=== PATIENT | male | born 1975 | race Native Hawaiian/Other Pacific Islander ===

== ENCOUNTER 2025-03-14 10:44 | Inpatient (IN) | payer MEDICAID, SELFPAY ==
[2025-03-14] VITALS (11 sets, daily range): BP systolic 158–195; BP diastolic 83–116; PULSE 76–101; RESP 15–99; TEMP 36.5–37.3; O2SAT 97–100; BMI 34.3
--- NOTE | 2025-03-14 11:21 | XR_ITS ---
Examination: AP lateral chest 2 views Technique: Portable AP lateral chest 2 views Exam date and time: March 14, 2025 1129 hrs. Indications: Coughing difficulty breathing one week. Findings: Normal heart size Lungs are clear. The osseous structures are intact Impression: No active disease
--- NOTE | 2025-03-14 11:21 | PD.EDRME ---
Rapid Medical Screening Exam RME Arrival date/time: 03/14/25 10:44 49-year-old male presents to the emergency department complaints of cough, congestion and sore throat Chief Complaint: Flu Like Symptoms Time Seen by Provider: 03/14/25 11:09 Vital signs: Vital Signs Temperature 99.1 F 03/14/25 11:01 Pulse Rate 76 03/14/25 11:01 Respiratory Rate 18 03/14/25 11:01 Blood Pressure 174/84 H 03/14/25 11:01 Pulse Oximetry (%) 98 03/14/25 11:01 Oxygen Delivery Method Room Air 03/14/25 11:01
[2025-03-14 11:39] LABS: Strep A Rapid Negative (Negative)
[2025-03-14 12:03] LABS: Collection Type, Urine Clean Catch; Squamous Epithelial Cell,Urine 0 /hpf (0-5)
[2025-03-14 12:15] LABS: Bilirubin,Urine Negative (Negative); Blood,Urine 2+ (Negative); Clarity,Urine Clear (Clear/Hazy); Color,Urine Lt-Yellow (Lt Yel-Yel); Glucose, Urine 3+ (Negative); Ketones,Urine Negative (Negative); Leukocyte Esterase,Urine Negative (Negative); Nitrite,Urine Negative (Negative); PH,Urine 6.5 (5.0-7.0); Protein,Urine 3+ (Neg - Trace); RBC,Urine 3 /hpf (0-3); Specific Gravity,Urine 1.014 (1.001-1.035); Urobilinogen,Urine Negative mg/dL (0.0-1.0); WBC,Urine 4 /hpf (0-5)
[2025-03-14 12:19] LABS: Basophils % (Auto) 1 % (0-2.5); Eosinophils # (Auto) 0.4 Thou/mm3 (0.0-0.5); Eosinophils % (Auto) 5 % (0-10); Hematocrit 24.1 % (41.0-53.0); Immature Granulocytes % (Auto) 0 % (0-0); Immature Granulocytes Auto 0.03 Thou/mm3 (0.00-0.00); Lymphocytes # (Auto) 1.2 Thou/mm3 (1.0-4.8); Lymphocytes % (Auto) 15 % (10-50); Mean Corpuscular HGB Conc 34.4 g/dl (31.0-37.0); Mean Corpuscular Hemoglobin 27.5 pg (25.0-35.0); Mean Corpuscular Volume 80 fL (80-100); Monocytes # (Auto) 0.8 Thou/mm3 (0.0-0.8); Monocytes % (Auto) 10 % (0-12); Neutrophils # (Auto) 5.5 Thou/mm3 (1.8-7.7); Neutrophils % (Auto) 69 % (37-80); Nucleated Red Blood Cell % 0 /100 WBC (0); Platelet Count 181 Thou/mm3 (140-440); RDW Standard Deviation 37.8 fL (35.1-43.9); Red Blood Count 3.02 Miln/mm3 (4.50-5.90); White Blood Count 7.9 Thou/mm3 (3.8-10.6)
[2025-03-14 12:20] LABS: Hemoglobin 8.3 g/dL (13.5-16.0)
[2025-03-14 12:42] LABS: Alanine Aminotransferase 13 U/L (10-49); Albumin, Serum 3.7 gm/dL (3.5-5.0); Albumin/Globulin Ratio 1.4 (1.2-2.2); Alkaline Phosphatase 114 U/L (46-116); Anion Gap 11 (7-16); Aspartate Amino Transferase < 10 U/L (0-34); BUN/Creatinine Ratio 6 Ratio (12-20); Bilirubin,Total 0.2 mg/dL (0.3-1.2); Blood Urea Nitrogen 95 mg/dL (9-23); Calcium 8.3 mg/dL (8.3-10.6); Calcium (Corrected) 8.5 mg/dL (8.5-10.1); Carbon Dioxide 18.6 mMol/L (20.0-31.0); Chloride 109 mMol/L (98-107); Estimated Creatinine Clearance 5.4 mL/min (>60); Globulin 2.7 gm/dL (2.3-3.5); Glucose 123 mg/dL (74-106); Osmolality,Calculated 307 (275-295); Potassium 5.5 mMol/L (3.4-5.1); Sodium 139 mMol/L (136-145); Total Protein 6.4 gm/dL (5.7-8.2); eGFR 3 See Note
[2025-03-14 12:48] LABS: Creatinine (Component) 16.7 mg/dL (0.6-1.3)
--- NOTE | 2025-03-14 13:45 | PD.EDURI ---
Upper Respiratory Inf. RME/HPI General Chief Complaint: Flu Like Symptoms Stated Complaint: COUGH,SOB, MCKENZIE x 1 WEEK Time Seen by Provider: 03/14/25 11:09 Arrival date/time: 03/14/25 10:44 RME / HPI RME / HPI Narrative: 49-year-old male presents to the emergency department complaints of cough, congestion and sore throat. Has been ongoing for the last 7 days. Denies any fever denies any other complaints. Patient being followed by Dr. Gipson. Patient being seen by graduate studies dean and was advised to have dialysis for last 1.5 years. Patient still denying or refusing hemodialysis. Patient denies any fever. Patient told me that he is still making urine. Related Data Home Medications ?Medication ?Instructions ?Recorded ?Confirmed amlodipine 5 mg tablet 5 mg PO QDAY 09/01/20 09/01/20 insulin glargine 100 unit/mL (3 35 unit subcut QDAY 09/01/20 09/01/20 mL) subcutaneous pen (Basaglar KwikPen U-100 Insulin) sitagliptin phosphate 50 1 tab PO BID 09/01/20 09/01/20 mg-metformin 1,000 mg tablet (Janumet) Previous Rx's ?Medication ?Instructions ?Recorded albuterol sulfate 90 mcg/actuation 1 inh inhalation QID PRN shortness 09/06/20 aerosol inhaler (Proventil HFA) of breath or wheezing #8.5 grams dexamethasone 6 mg tablet 6 mg PO QDAY #4 tabs 09/06/20 (Decadron) Allergies Allergy/AdvReac Type Severity Reaction Status Date / Time No Known Allergies Allergy Verified 03/14/25 10:47 Review of Systems Review of Systems Narrative Review of Systems: Review of system reviewed and within normal limits except mentioned in HPI ED Exam Narrative Physical exam: VITAL SIGNS: Reviewed. GENERAL APPEARANCE: Alert and interactive, follows commands, no acute distress, HEAD AND FACE: Non-traumatic. ENT: PERRL, pink conjunctivitis, eyelid no trauma, Mucous membrane moist. NECK: Supple, nontender, no nuchal rigidity. CHEST: No tenderness, no crepitus, no paradoxical movement, no retractions. LUNGS: Clear, well ventilated, symmetric, no rales, no wheezing, no ronchi, no stridor, good breath sounds bilaterally. HEART: Regular rate, regular rhythm, no murmur, no gallops. ABDOMEN: Soft, positive bowel sounds, nondistended, no guarding, nontender, no rebound, no masses, RECTAL: Deferred. GENITAL: Deferred. NEUROLOGICAL: Gross motor function intact sensory function intact, Appropriate for age. MUSCULOSKELETAL: low back nontender, full range of motion. EXTREMITIES: Status post BKA left, nontender, full range of motion. SKIN: Color pink, dry, no rash, no lacerations, no abrasions, no contusions. LYMPHATICS: Deferred. Course Quality Measures none Orders Category Date Time Status Bedside Blood Glucose Q2HX3 Care 03/14/25 14:22 Active Bedside COVID-19 Antigen Test NOW Care 03/14/25 11:21 Active Bedside Influenza A&B Antigen Test NOW Care 03/14/25 11:21 Completed COVID-19 Screening Questionnaire NOW Care 03/14/25 14:30 Active Decision to Admit X1 Care 03/14/25 14:30 Completed Consult to Nephrology Stat Cons 03/14/25 14:10 Ordered XR chest 2V Stat Exams 03/14/25 11:21 Completed CBC Stat Lab 03/14/25 12:03 Completed Comprehensive Metabolic Panel Stat Lab 03/14/25 12:03 Completed Strep A Rapid Stat Lab 03/14/25 11:25 Completed Uric Acid Stat Lab 03/14/25 12:03 Completed Urinalysis Stat Lab 03/14/25 11:50 Completed Urine Culture Stat Lab 03/14/25 11:50 Received ALBUTEROL RT 0.5ml [Proventil Rt 0.5ml] Med 03/14/25 14:22 Discontinued 5 mg INH X1 ONE Calcium Chloride 10% Abboject Med 03/14/25 14:22 Discontinued 10 ml IV X1 ONE Citric Acid/Sodium Citr [Bicitra Soln] Med 03/14/25 21:00 Active 30 ml PO BID Dextrose 10%-Water 1000 ml [D10w 1000 ml] 1,000 ml Med 03/14/25 14:30 Discontinued IV 100 mls/hr Dextrose 5%-Water [D5w] 500 ml Med 03/14/25 16:45 Active Sodium Bicarb 8.4% 50ml Vial* 88.23 meq IV 100 mls/hr Furosemide Inj [Lasix Inj] Med 03/14/25 14:22 Discontinued 40 mg IVP X1 ONE Sod Polystyrene Sulfon Susp [Kayexalate Susp] Med 03/14/25 14:22 Discontinued 30 gm PO X1 ONE Sodium Chloride Rt Caitlin 0.9% [NS Rt Caitlin 0.9%] Med 03/14/25 14:22 Active 3 ml INH PRN PRN Vital Signs Vital signs: Vital Signs Temperature 99.1 F 03/14/25 11:01 Pulse Rate 76 03/14/25 11:01 Respiratory Rate 18 03/14/25 11:01 Blood Pressure 174/84 H 03/14/25 11:01 Pulse Oximetry (%) 98 03/14/25 11:01 Oxygen Delivery Method Room Air 03/14/25 11:01 Upper Respiratory Infection MDM Narrative MDM Narrative:: 49-year-old male presents to the emergency department complaints of cough, congestion and sore throat. Has been ongoing for the last 7 days. Denies any fever denies any other complaints. Patient being followed by Dr. Gipson. Patient being seen by graduate studies dean and was advised to have dialysis for last 1.5 years. Patient still denying or refusing hemodialysis. Patient denies any fever. Patient told me that he is still making urine. Patient tested negative for COVID-19 and influenza. Patient's creatinine today was noted to be 16.7, hematocrit BUN of 95 potassium 5.5. Chest x-ray came back unremarkable no pneumonia. Spoke with Dr. Villaseñor who told me to asked the hospitalist admit the patient she will convince the patient again for hemodialysis. Patient data External records reviewed:: None Clinical information provided by:: patient and family Social determinants that could affect healthcare access:: none Patient has the following chronic illnesses:: Diabetes mellitus, ESRD How is presenting disease/condition affected by chronic disease/condition?: exacerbated by Evaluation data The following diagnostics were reviewed and interpreted by me:: lab results and radiology exam(s) Lab and/or radiology exams considered but not ordered:: None Interpretation Summary: See results MDM Medications / Prescriptions Medications or Prescriptions considered but not ordered:: None Medication administrations:: Medication Administration History Acetaminophen (Acetaminophen 325 Mg Tablet) 650 mg PO Q6H PRN PRN Reason: Fever >101.5 Stop: 04/13/25 15:31 Amlodipine Besylate (Amlodipine Besylate 5 Mg Tablet) 10 mg PO QDAY RAYSA Stop: 04/13/25 15:59 Last Admin: 03/14/25 17:26 Dose: 10 mg Documented By: JEFF Citric Acid/Sodium Citrate (Citric Acid/Sodium Citr 15 Ml Udc (Bicitra)) 30 ml PO BID [facility] Stop: 04/13/25 20:59 Dextrose (Dextrose 50%-Water Inj 50 Ml Syringe) 25 ml IV Q15MIN PRN PRN Reason: BG 50-70 responsive npo pt Stop: 04/13/25 15:48 Dextrose (Dextrose 50%-Water Inj 50 Ml Syringe) 50 ml IV Q15MIN PRN PRN Reason: BG <50 OR BG <70 & pt unresponsive Stop: 04/13/25 15:48 Glucagon (Glucagon Inj 1 Mg Vial) 1 mg IM Q15MIN PRN PRN Reason: BG <70, and no IV access Heparin Sodium (Porcine) (Heparin Sod Inj 5000 Unit/Ml Vial) 5,000 unit SC Q8HR RAYSA Stop: 03/28/25 21:59 Sodium Bicarbonate 88.23 meq/ (Dextrose) 588.23 mls @ 100 mls/hr IV .Q5H53M [facility] Stop: 04/13/25 16:44 Last Admin: 03/14/25 17:26 Dose: 100 mls/hr Documented By: JEFF Insulin Glargine (Insulin Glargine (Lantus) 5 Unit/0.05 Ml (Per 5 Units)) 15 unit SC QDAY [facility] Stop: 04/14/25 08:59 Insulin Human Lispro (Insulin Lispro (Admelog) 1 Unit/0.01 Ml Unit) 0 unit SC AC [facility]; Protocol Stop: 04/13/25 16:59 Last Admin: 03/14/25 17:27 Dose: Not Given Documented By: JEFF Non-Admin Reason: Per Protocol Ondansetron HCl (Ondansetron Inj 2 Mg/Ml Inj 2 Ml) 4 mg IV Q6H PRN; Protocol PRN Reason: NAUSEA OR VOMITING Stop: 04/13/25 15:31 Sodium Chloride (Sodium Chloride Rt Caitlin 0.9% 3 Ml Nebu) 3 ml INH PRN PRN PRN Reason: SOLN Stop: 04/13/25 14:21 Last Admin: 03/14/25 14:46 Dose: 3 ml Documented By: JossV Discontinued Medications Albuterol (Albuterol Rt 2.5 Mg/0.5 Ml Nebu) 5 mg INH X1 ONE Stop: 03/14/25 14:23 Last Admin: 03/14/25 14:47 Dose: 5 mg Documented By: TITO Calcium Chloride (Calcium Chloride 10% Inj 10 Ml Syrg) 10 ml IV X1 ONE Stop: 03/14/25 14:23 Last Admin: 03/14/25 14:59 Dose: 10 ml Documented By: JEFF Furosemide (Furosemide Inj 10 Mg/Ml 4ml Vial) 40 mg IVP X1 ONE Stop: 03/14/25 14:23 Last Admin: 03/14/25 15:00 Dose: 40 mg Documented By: JEFF Dextrose (D10w 1000 Ml) 1,000 mls @ 100 mls/hr IV .Q10H RAYSA Stop: 03/15/25 00:29 Last Admin: 03/14/25 15:04 Dose: 100 mls/hr Documented By: JEFF Sodium Polystyrene Sulfonate (Sod Polystyrene Sulfon Susp 15 Gm/60 Ml Btl) 30 gm PO X1 ONE Stop: 03/14/25 14:23 Last Admin: 03/14/25 15:00 Dose: 30 gm Documented By: JEFF Tuberculin PPD (Tuberculin Ppd Inj 5 Unit/0.1 Ml Dose) 5 unit ID X1 ONE Stop: 03/14/25 15:33 Last Admin: 03/14/25 17:26 Dose: 5 unit Documented By: JEFF None Consultations Consultation(s) initiated? (list below): Yes Consultation #1 (Physician, Specialty, Details): Dr Gipson, graduate studies dean thank you Diagnosis Upper Respiratory Differential Diagnosis: upper respiratory infection and viral infection Most likely diagnosis given after review of the tests above:: ESRD needing hemodialysis Admission Indicated Admission indicated?: indicated Admission Request Was there a request for admission?: Yes Admission Attestation Admission request attestation: Discussed case with [Dr Pate] from Hospitalist service regarding admission. Discussed patients ED course, exam findings, labs, and radiology results. The Hospitalist [agrees] to accept the patient for admission. Disposition Plan Disposition Plan: Admit Discharge Plan Plan Patient Disposition: Admit Acute Care w/in Hospital Disposition Comment: Stable Problem List Clinical Impression: Hyperkalemia, ESRD needing dialysis
[2025-03-14] MEDS: SODIUM CHLORIDE RT SOL 0.9% 3 ML NEBU INH (14:46)
[2025-03-14] MEDS: ALBUTEROL RT 2.5 MG/0.5 ML NEBU 5 MG INH (14:47)
[2025-03-14] MEDS: CALCIUM CHLORIDE 10% INJ 10 ML SYRG IV (14:59)
[2025-03-14] MEDS: FUROSEMIDE INJ 10 MG/ML 4ML VIAL 40 MG IVP (15:00)
[2025-03-14] MEDS: SOD POLYSTYRENE SULFON SUSP 15 GM/60 ML BTL 30 GM PO (15:00)
[2025-03-14] MEDS: DEXTROSE 10%-WATER 1000 ML 1,000 ML 100 ML IV (15:04)
--- NOTE | 2025-03-14 15:45 | ESHP_ITS ---
<Statement entered by Remigio Garcia MD - 03/15/25 09:45> Patient coming in with acute renal failure, creatinine up to 16, GFR at 3. Patient states she has been feeling unwell for the past few days. Nephrology consulted, recommending dialysis to patient but patient is hesitant. Will order renal ultrasound, although likely secondary to diabetes mellitus as patient has left BKA signaling uncontrolled diabetes. Case discussed with team. Remigio Garcia MD PGY3 Documentation for date of: 03/14/25 HPI History of Present Illness History of present illness: Mr. Chase is a 49-year-old male with past medical history significant for hypertension and insulin-dependent type 2 diabetes presented to the ED accompanied by his complaining of shortness of breath and cough for the past 1 week. Patient states that he has been increasingly not feeling well and initially thought he was having flulike symptoms however his shortness of breath progressively worsened by today. Patient states he has cough and some phlegm however denies any febrile episodes, or night sweats denies being around anyone sick recently and denies recent travel. Patient does follow Dr. Gipson outpatient inconsistently, and states that he is unable to decide whether he wants dialysis or not however is very scared about the process of it. Patient denies any dizziness or syncopal episodes. Denies any chest pain palpitation or chest pressure. Patient also denies any abdominal pain, diarrhea or constipation. Patient states that he does make urine and urinates more than 2 times a day. Patient states he also underwent left BKA after having an non healing ulcer which led to osteomyelitis and eventually right BKA in 2018. ED course In the ED initial vitals include blood pressure 174/84, pulse 76 and patient is saturating at 98% on room air. Labs are significant for hemoglobin 8.3, hematocrit 24.1, potassium 5.5, chloride 109, bicarb 18.6, BUN 95, creatinine 16.7, GFR 3, 43, urine protein 3+, urine glucose 3+, urine blood 2+ Chest Xray is negative for pneumonia In the ED patient received Lasix 40 mg IV push x 1, albuterol 5 mg inhaler x1, calcium chloride 10 mL , and initially started on dextrose 1 L which was stopped by hospitalist team PMH: Hypertension, type 2 diabetes PSH: Left BKA 2018 SH: Denies alcohol and drug use, patient has remote history of smoking tobacco Home Meds: 36 units glargine, glipizide 5 mg daily, lisinopril Review of Systems Review of Systems Systems Reviewed: All systems reviewed, normal except as documented Exam Vital Signs Temp Pulse Resp BP Pulse Ox O2 Del Method 98.5 F 78 18 168/88 H 100 Room Air 03/14/25 13:16 03/14/25 15:00 03/14/25 14:47 03/14/25 15:00 03/14/25 14:47 03/14/25 13:16 Narrative Exam GENERAL: A&Ox3 . Awake, cooperative but appears to be anxious middle age male NEURO: no focal neurological deficits noted HEENT: Atraumatic, Normocephalic. mucous membranes moist. Eyes open, symmetrical, & clear HEART: Normal Heart Sounds LUNGS: faint rhonci through out the lungs bilaterally SKIN: No Rash or ecchymoses EXTREMITIES: LEFT BKA, No edema or tenderness, able to move all 4 extremities (inlcuding the L. BKA) , diminished pedal pulses in right foot Results: Labs 03/15/25 04:32 03/15/25 04:32 Labs: Short CBC 03/14/25 Range/Units 12:03 WBC 7.9 (3.8-10.6) Thou/mm3 Hgb 8.3 L (13.5-16.0) g/dL Hct 24.1 L (41.0-53.0) % Plt Count 181 (140-440) Thou/mm3 BMP 03/14/25 12:03 Sodium 139 Potassium 5.5 H Chloride 109 H Carbon Dioxide 18.6 L BUN 95 H Creatinine 16.7 H* Glucose 123 H Calcium 8.3 Liver Function 03/14/25 Range/Units 12:03 Total Bilirubin 0.2 L (0.3-1.2) mg/dL AST < 10 (0-34) U/L ALT 13 (10-49) U/L Alkaline Phosphatase 114 (46-116) U/L Albumin 3.7 (3.5-5.0) gm/dL Urine 03/14/25 Range/Units 11:50 Urine Color Lt-Yellow (Lt Yel-Yel) Urine Clarity Clear (Clear/Hazy) Urine pH 6.5 (5.0-7.0) Ur Specific [place] 1.014 (1.001-1.035) Urine Protein 3+ A (Neg - Trace) Urine Glucose (UA) 3+ A (Negative) Quality Measures Quality Measures VTE prophylaxis Medications Home Medications and Allergies Home Medications ?Medication ?Instructions ?Recorded ?Confirmed ?Type amlodipine 5 mg tablet 5 mg PO QDAY 09/01/20 History insulin glargine 100 unit/mL (3 35 unit subcut QDAY 09/01/20 History mL) subcutaneous pen (Basaglar KwikPen U-100 Insulin) sitagliptin phosphate 50 1 tab PO BID 09/01/20 History mg-metformin 1,000 mg tablet (Janumet) Allergies Allergy/AdvReac Type Severity Reaction Status Date / Time No Known Allergies Allergy Verified 03/14/25 10:47 Visit Medications Acetaminophen (Acetaminophen 325 Mg Tablet) 650 mg PO Q6H PRN PRN Reason: Fever >101.5 Stop: 04/13/25 15:31 Citric Acid/Sodium Citrate (Citric Acid/Sodium Citr 15 Ml Udc (Bicitra)) 30 ml PO BID RAYSA Stop: 04/13/25 20:59 Dextrose (Dextrose 50%-Water Inj 50 Ml Syringe) 25 ml IV Q15MIN PRN PRN Reason: BG 50-70 responsive npo pt Stop: 04/13/25 14:20 Dextrose (Dextrose 50%-Water Inj 50 Ml Syringe) 50 ml IV Q15MIN PRN PRN Reason: BG <50 OR BG <70 & pt unresponsive Stop: 04/13/25 14:20 Glucagon (Glucagon Inj 1 Mg Vial) 1 mg IM Q15MIN PRN PRN Reason: BG <70, and no IV access Heparin Sodium (Porcine) (Heparin Sod Inj 5000 Unit/Ml Vial) 5,000 unit SC Q8HR RAYSA Stop: 03/28/25 21:59 Sodium Bicarbonate 88.23 meq/ (Dextrose) 588.23 mls @ 100 mls/hr IV .Q5H53M RAYSA Stop: 04/13/25 21:37 Sodium Bicarbonate 88.23 meq/ (Dextrose) 588.23 mls @ 100 mls/hr IV .Q5H53M ONE Stop: 03/14/25 21:37 Ondansetron HCl (Ondansetron Inj 2 Mg/Ml Inj 2 Ml) 4 mg IV Q6H PRN; Protocol PRN Reason: NAUSEA OR VOMITING Stop: 04/13/25 15:31 Sodium Chloride (Sodium Chloride Rt Caitlin 0.9% 3 Ml Nebu) 3 ml INH PRN PRN PRN Reason: SOLN Stop: 04/13/25 14:21 Last Admin: 03/14/25 14:46 Dose: 3 ml Discontinued Medications Albuterol (Albuterol Rt 2.5 Mg/0.5 Ml Nebu) 5 mg INH X1 ONE Stop: 03/14/25 14:23 Last Admin: 03/14/25 14:47 Dose: 5 mg Calcium Chloride (Calcium Chloride 10% Inj 10 Ml Syrg) 10 ml IV X1 ONE Stop: 03/14/25 14:23 Last Admin: 03/14/25 14:59 Dose: 10 ml Furosemide (Furosemide Inj 10 Mg/Ml 4ml Vial) 40 mg IVP X1 ONE Stop: 03/14/25 14:23 Last Admin: 03/14/25 15:00 Dose: 40 mg Dextrose (D10w 1000 Ml) 1,000 mls @ 100 mls/hr IV .Q10H RAYSA Stop: 03/15/25 00:29 Last Admin: 03/14/25 15:04 Dose: 100 mls/hr Sodium Polystyrene Sulfonate (Sod Polystyrene Sulfon Susp 15 Gm/60 Ml Btl) 30 gm PO X1 ONE Stop: 03/14/25 14:23 Last Admin: 03/14/25 15:00 Dose: 30 gm Tuberculin PPD (Tuberculin Ppd Inj 5 Unit/0.1 Ml Dose) 5 unit ID X1 ONE Stop: 03/14/25 15:33 Assessment & Plan Plan Mr. Chase is a 49-year-old male with past medical history significant for hypertension and insulin-dependent type 2 diabetes presented to the ED accompanied by his complaining of shortness of breath and cough for the past 1 week. Pt is admitted for management of acute renal failure. #Acute renal failure, in the setting of #CKD #Possible ESRD - Patient has baseline creatinine in 2019 was 1.4, no records of creatinine in between 2019 and 2024. - On admission patient's creatinine is 16.7 and GFR 3 Plan: - Renal ultrasound ordered - Well [facility]ooter consulted, appreciate recommendations - Discussed with patient the need of possible emergency dialysis however patient is very indecisive and right now he does not want dialysis. -Avoid nephrotoxic and renally dose medications - Ordered TB skin test and hepatitis panel in case patient may require permanent dialysis - PTH, vitamin D and repeat renal panel at 6 PM ordered #Hyperkalemia #Nonanion gap metabolic acidosis - On admission patient's potassium is 5.5 and bicarb 18.6, likely secondary to acute renal failure - Patient is given albuterol treatment as well as started on bicarb drip - Will repeat renal panel at 6 PM to monitor potassium #Normocytic anemia #Anemia of chronic disease - On admission hemoglobin is 8.3, hematocrit 24.1 and MCV 80 - No signs of active bleeding, Pt denies melena, hematochezia and hematemesis - This anemia is likely secondary to decreased erythropoetin production in CKD Plan: - Ordered iron panel plus ferritin for a.m. labs - Will continue to monitor daily CBC and transfuse if hemoglobin below 7 #Insulin-dependent type 2 diabetes -A1c 11.6 on 01/11/20 - On admission blood glucose 123 -Patient's home regimen includes 36 units of glargine and glipizide 5 mg Plan: -Insulin sliding scale ordered -AC at bedtime Accu-Cheks -Hypoglycemia protocol in place -A1c ordered for a.m. lab #Primary hypertension - Patient's home medication include lisinopril daily - Will hold lisinopril in the setting of acute renal failure - Started patient on amlodipine 10 mg daily Health Maintenance Disposition: telemetry DVT Prophylaxis: Heparin 5000 units SC Q8 hrs GI Prophylaxis: not indicated Diet: Renal Diet Lines: Peripheral lines Code status: Full Assessment and plan discussed with my senior resident Dr. Garcia & attending physician Dr. Efra Meade (PGY-1)- Internal medicine resident Attending Provider Attestation/Addendum Ellen Jacome, , attest that I was physically present for the casiano portions of the service and evaluated the patient with the resident and I reviewed and discussed the case with the resident and agree with the resident's findings and plans of care as documented above Patient is a 49-year-old male with past medical history of hypertension, type 2 insulin-dependent diabetes mellitus and stage IV CKD who presented to the ED with worsening flulike symptoms for over 1 week. Patient endorses having cough and productive sputum. He denies any recent sick contacts otherwise. Upon evaluation in the ED, patient was noted to have potassium of 5.5 with a creatinine of 16.7 and BUN of 95. Patient states that he has able to produce urine and goes at least twice a day. Patient states that he does not want dialysis at this time. He denies any chest pain, shortness of breath, fevers or chills. Nephrology was called from ED due to acute renal failure. Will admit patient to telemetry and place on a bicarb drip at this time as he would like to defer dialysis. Will order renal US. Will otherwise order QuantiFERON and hepatitis panel with patient decides to undergo HD. Will repeat renal panel in the evening to reevaluate hyperkalemia and renal function. No peripheral edema noted, but is noted to have faint dorsalis pedis pulse in the right foot. Patient has a well-healed BKA stump on the left lower extremity.
--- NOTE | 2025-03-14 15:46 | XR_ITS ---
Examination: Retroperitoneal ultrasound, complete Technique: Multiple high resolution grayscale images of the retroperitoneum obtained, including kidneys and bladder. Exam date and time:March 14, 2025 1635 hrs. Indications: Acute renal failure on laboratory examination this week Findings: Right kidney 9.7 cm cortex 1.3 cm Left kidney 10.7 cm cortex 1.7 cm Moderate bilateral renal parenchymal scar formation No hydronephrosis No bladder mass or bladder calculi Bladder prevoid volume 31 cc unable void Prostate volume 14.3 cc no prostate nodules, incidental note 27 mm gallbladder sludge ball Impression: Small kidneys with bilateral renal cortical thinning Moderate bilateral renal parenchymal scar formation No hydronephrosis
[2025-03-14 16:09] LABS: Uric Acid 8.3 mg/dL (3.7-9.2)
[2025-03-14] MEDS: Sodium Bicarb 8.4% 50ml Vial* 88.23 MEQ in DEXTROSE 5%-WATER 500 ML 100 MEQ IV (17:26)
[2025-03-14] MEDS: TUBERCULIN PPD INJ 5 UNIT/0.1 ML DOSE ID (17:26)
[2025-03-14] MEDS: amLODIPine BESYLATE 5 MG TABLET 10 MG PO (17:26)
--- NOTE | 2025-03-14 18:23 | PD.NEPHCONS ---
History of Present Illness Data of Consult Consult date: 03/14/25 Requesting Physician: Ellen Kraus DO Primary Care Provider: Sid Velasquez PA-C Consult Narrative Reason for consult: ARF vs ESRD History of present illness: Mr. Chase is a 49-year-old [place] gentle male who is well-known to me from my CKD clinic for the last few years has extensive past medical history of hypertension for more than 20 years, diabetes for more than 20 years, PVD with left BKA, dyslipidemia, renal osteodystrophy/secondary hyperparathyroidism, anemia of chronic kidney disease was last seen by me few months ago and missed a couple of appointments. Patient apparently has CKD stage V for the last 1-1/2-year and has been declining dialysis. [place]errals to transplant center he never showed up or made a call to the transplant center. Patient presented to the emergency department with shortness of breath cough which is going on for the last 1 to 2 weeks. Patient denies any fever or chills. Did have flulike symptoms. No recent travel. He is still making urine. In the emergency department blood pressure 174/84, heart rate 76. O2 sat 98%. Labs showed hemoglobin 8.3, potassium 5.5, bicarbonate 18.6, BUN 95, creatinine 16.7, GFR 3, urinalysis showing significant proteinuria, glucosuria, blood. Chest x-ray negative for pneumonia. ER provider called me. Recommended medical management for hyperkalemia. Admitted to medical team. Renal consultation requested for hyperkalemia, CKD stage 5 and need for dialysis. Home medications included Janumet, Basaglar, amlodipine (seems incomplete as he is missing few medications) cc:: cc: Ellen Kraus DO Review of Systems Review of Systems Narrative Review of Systems: CONSTITUTIONAL: Patient denies any fever, chills. Complaining of fatigue HEENT: Denies any visual disturbances or hearing problems. CARDIOVASCULAR: Patient denies any chest pain, swelling in the lower extremities. PULMONARY: Patient c/o shortness of breath, cough. GASTROINTESTINAL: Patient denies any abdominal pain, constipation, nausea, vomiting, diarrhea. GENITOURINARY: Patient denies any urinary symptoms of burning or frequency or hematuria, ++ form in the urine. SKIN: Denies any rash. MUSCULOSKELETAL: Denies any muscular skeletal problems of joint pains. Left BKA NEUROLOGICAL: Denies any neurological problems of strokes, seizures or confusion. Denies any memory problems. PSYCHIATRIC: Denies any depression or anxiety. LYMPHATICS : No lymphadenopathy Past Medical History Past Medical History CARDIAC: Negative Cardiac Disorders or Congestive Heart Failure RESPIRATORY: Negative Chronic Obstructive Pulmonary Disease (COPD) GENITOURINARY: Negative Renal Disease ENDOCRINE: Positive Endocrine Disorders, Diabetes Mellitus Type 2 and Hypothyroidism; Negative Diabetes Mellitus Type 1 Surgical History SURGICAL: Positive Eye Surgery (cataracts, left eye) and Amputation (L BKA) Social History SMOKING STATUS: Never smoker SECOND HAND EXPOSURE: Yes Meds Home Medications and Allergies Home Medications ?Medication ?Instructions ?Recorded ?Confirmed ?Type amlodipine 5 mg tablet 5 mg PO QDAY 09/01/20 09/01/20 History insulin glargine 100 unit/mL (3 35 unit subcut QDAY 09/01/20 09/01/20 History mL) subcutaneous pen (Basaglar KwikPen U-100 Insulin) sitagliptin phosphate 50 1 tab PO BID 09/01/20 09/01/20 History mg-metformin 1,000 mg tablet (Janumet) Allergies Allergy/AdvReac Type Severity Reaction Status Date / Time No Known Allergies Allergy Verified 03/14/25 10:47 Exam Vital Signs Temp Pulse Resp BP Pulse Ox O2 Del Method 36.6 C 95 15 195/116 H 98 Room Air 03/14/25 18:21 03/14/25 18:21 03/14/25 18:21 03/14/25 18:21 03/14/25 18:21 03/14/25 18:21 Narrative Exam GENERAL APPEARANCE: Patient seems to be comfortable, adequately hydrated and nourished. Facial puffiness noted HEENT: EOMI, PERRLA NECK: Neck supple, no JVD or bruit CARDIOVASCULAR: Heart regular, no murmurs LUNGS/CHEST: Fine crackles bilaterally with some wheezing ABDOMEN: Soft, nontender, nondistended. No masses. Normal bowel sounds. EXTREMITIES: No edema, clubbing or cyanosis. SKIN: Skin exam normal without any rashes MUSCULOSKELETAL: Left BKA PSYCHIATRIC: Normal mood, affect LYMPHATICS: No lymphadenopathy noted NEUROLOGICAL : No neurological deficits Results Labs 03/15/25 04:32 03/15/25 04:32 Labs: Short CBC 03/14/25 Range/Units 12:03 WBC 7.9 (3.8-10.6) Thou/mm3 Hgb 8.3 L (13.5-16.0) g/dL Hct 24.1 L (41.0-53.0) % Plt Count 181 (140-440) Thou/mm3 BMP 03/14/25 12:03 Sodium 139 Potassium 5.5 H Chloride 109 H Carbon Dioxide 18.6 L BUN 95 H Creatinine 16.7 H* Glucose 123 H Calcium 8.3 Liver Function 03/14/25 Range/Units 12:03 Total Bilirubin 0.2 L (0.3-1.2) mg/dL AST < 10 (0-34) U/L ALT 13 (10-49) U/L Alkaline Phosphatase 114 (46-116) U/L Albumin 3.7 (3.5-5.0) gm/dL Urine 03/14/25 Range/Units 11:50 Urine Color Lt-Yellow (Lt Yel-Yel) Urine Clarity Clear (Clear/Hazy) Urine pH 6.5 (5.0-7.0) Ur Specific [place] 1.014 (1.001-1.035) Urine Protein 3+ A (Neg - Trace) Urine Glucose (UA) 3+ A (Negative) Assessment & Plan Assessment and plan (1) CKD stage 5 due to type 2 diabetes mellitus: Status: Acute Assessment and plan: Patient has advanced CKD stage V secondary to diabetic/hypertensive nephrosclerosis. He has been refusing dialysis for the last currently with the sequelae of azotemia, anemia, renal osteodystrophy, hyperphosphatemia, hyperParathyroidism--patient seems to be end-stage kidney disease needing dialysis. Had a long conversation with the patient regarding the need for dialysis. He finally agreed. Will plan for dialysis on Sunday via PermCath. No need for urgent dialysis. Will do medical management for hyperkalemia and add bicarb drip for metabolic acidosis. (2) Hyperkalemia: Status: Acute Assessment and plan: Medical management for hyperkalemia ordered (3) Bilateral pneumonia: Status: Acute Assessment and plan: On antibiotics (4) Hyperphosphatemia: Status: Acute Assessment and plan: Add binders (5) Anemia in chronic kidney disease (CKD): Status: Acute Assessment and plan: Will give Epogen. Check iron stores (6) DM renal manif type II: Status: Acute Assessment and plan: Diabetes with all the sequelae including diabetic nephropathy, peripheral vascular disease. (7) HTN (hypertension), benign: Status: Acute Assessment and plan: Add ARB once dialysis initiated. Patient noted to have significant proteinuria (8) Hyperlipidemia: Status: Acute Assessment and plan: Check lipid panel Additional Assessment & Plan Additional Plan: Thank you Dr. Kraus for allowing me to participate in the care of Mr. Chase
--- NOTE | 2025-03-14 18:31 | PC.NURSE ---
Report given to Kelli KRAUS pt transfed to tele
[2025-03-14 18:34] LABS: Phosphorous 10.9 mg/dL (2.4-5.1)
[2025-03-14 21:34] LABS: Magnesium 2.2 mg/dL (1.6-2.6); Potassium 4.8 mMol/L (3.4-5.1)
[2025-03-14] MEDS: CITRIC ACID/SODIUM CITR 15 ML UDC (BICITRA) 30 ML PO (21:36)
[2025-03-14] MEDS: HEPARIN SOD INJ 5000 UNIT/ML VIAL SC (21:38)
[2025-03-14] MEDS: ALBUTEROL/IPRATROPIUM (Duoneb) RT SOL 3 ML NEBU INH (22:41)
[2025-03-14 23:22] LABS: Albumin, Serum 3.1 gm/dL (3.5-5.0); Anion Gap 13 (7-16); BUN/Creatinine Ratio 6 Ratio (12-20); Blood Urea Nitrogen 98 mg/dL (9-23); Calcium (Corrected) 8.7 mg/dL (8.5-10.1); Carbon Dioxide 19.1 mMol/L (20.0-31.0); Chloride 104 mMol/L (98-107); Estimated Creatinine Clearance 5.3 mL/min (>60); Glucose 147 mg/dL (74-106); Osmolality,Calculated 305 (275-295); Potassium 4.6 mMol/L (3.4-5.1); Sodium 136 mMol/L (136-145); eGFR 3 See Note
[2025-03-14 23:35] LABS: Phosphorous 10.5 mg/dL (2.4-5.1)
[2025-03-15] VITALS (14 sets, daily range): BP systolic 149–196; BP diastolic 85–108; PULSE 77–98; RESP 12–29; TEMP 36.4–36.9; O2SAT 93–100; BMI 34.8
[2025-03-15] MEDS: Sodium Bicarb 8.4% 50ml Vial* 88.23 MEQ in DEXTROSE 5%-WATER 500 ML 100 MEQ IV ×3 (00:10→15:38)
[2025-03-15] MEDS: amLODIPine BESYLATE 5 MG TABLET PO ×2 (00:53→08:23)
[2025-03-15] MEDS: LABETALOL INJ 5 MG/ML VIAL 20 ML 2.5 MG IVP (00:54)
[2025-03-15 05:38] LABS: Basophils % (Auto) 0 % (0-2.5); Eosinophils # (Auto) 0.2 Thou/mm3 (0.0-0.5); Eosinophils % (Auto) 3 % (0-10); Hematocrit 20.5 % (41.0-53.0); Hemoglobin 7.2 g/dL (13.5-16.0); Immature Granulocytes % (Auto) 0 % (0-0); Immature Granulocytes Auto 0.03 Thou/mm3 (0.00-0.00); Lymphocytes # (Auto) 0.8 Thou/mm3 (1.0-4.8); Lymphocytes % (Auto) 12 % (10-50); Mean Corpuscular HGB Conc 35.1 g/dl (31.0-37.0); Mean Corpuscular Hemoglobin 27.3 pg (25.0-35.0); Mean Corpuscular Volume 78 fL (80-100); Monocytes # (Auto) 0.7 Thou/mm3 (0.0-0.8); Monocytes % (Auto) 10 % (0-12); Neutrophils # (Auto) 5.1 Thou/mm3 (1.8-7.7); Neutrophils % (Auto) 75 % (37-80); Nucleated Red Blood Cell % 0 /100 WBC (0); Platelet Count 164 Thou/mm3 (140-440); RDW Standard Deviation 37.1 fL (35.1-43.9); Red Blood Count 2.64 Miln/mm3 (4.50-5.90); White Blood Count 6.9 Thou/mm3 (3.8-10.6)
[2025-03-15] MEDS: HEPARIN SOD INJ 5000 UNIT/ML VIAL SC ×2 (05:48→13:22)
[2025-03-15 06:13] LABS: Glucose Estimated Average 146 mg/dL (80-131); Hemoglobin A1C 6.7 % Hgb (4.8-6.0)
[2025-03-15 06:22] LABS: Ferritin 1226 ng/mL (10.5-307.3); Iron 81 mcg/dL (65-175); Percent Iron Saturation 31 % (20-55); Total Iron Binding Capacity 260 mcg/dL (250-425); Unsaturated Iron Binding 179 (225-295)
[2025-03-15 06:41] LABS: Creatinine,Random Urine 58 mg/dL (30-125); Protein Total, Random Urine 641 mg/dL (1-14)
[2025-03-15 06:58] LABS: Alanine Aminotransferase 11 U/L (10-49); Albumin, Serum 3.2 gm/dL (3.5-5.0); Albumin/Globulin Ratio 1.3 (1.2-2.2); Alkaline Phosphatase 90 U/L (46-116); Anion Gap 15 (7-16); Aspartate Amino Transferase < 8 U/L (0-34); BUN/Creatinine Ratio 6 Ratio (12-20); Bilirubin,Total 0.3 mg/dL (0.3-1.2); Blood Urea Nitrogen 94 mg/dL (9-23); Calcium 8.2 mg/dL (8.3-10.6); Calcium (Corrected) 8.8 mg/dL (8.5-10.1); Carbon Dioxide 22.4 mMol/L (20.0-31.0); Cardiac Risk Estimate 4.9 RATIO (4.0-6.7); Chloride 104 mMol/L (98-107); Cholesterol 146 mg/dL (132-200); Creatinine (Component) 16.8 mg/dL (0.6-1.3); Estimated Creatinine Clearance 5.4 mL/min (>60); Globulin 2.5 gm/dL (2.3-3.5); Glucose 93 mg/dL (74-106); HDL Cholesterol 30 mg/dL (40-60); LDL Cholesterol,Calculated 92 mg/dL (0-130); Magnesium 2.2 mg/dL (1.6-2.6); Osmolality,Calculated 310 (275-295); Potassium 4.6 mMol/L (3.4-5.1); Sodium 141 mMol/L (136-145); Thyroid Stimulating Hormone 1.92 uIU/mL (0.55-4.78); Total Protein 5.7 gm/dL (5.7-8.2); Triglycerides 119 mg/dL (30-150); eGFR 3 See Note
[2025-03-15] MEDS: CITRIC ACID/SODIUM CITR 15 ML UDC (BICITRA) 30 ML PO ×2 (08:24→20:31)
[2025-03-15] MEDS: METOCLOPRAMIDE 5 MG TABLET PO (11:03)
[2025-03-15] MEDS: CALCIUM ACETATE 667 MG TABLET 1334 MG PO ×2 (11:45→17:33)
[2025-03-15] MEDS: INSULIN LISPRO (AdmeLOG) 1 UNIT/0.01 ML UNIT SC (11:57)
--- NOTE | 2025-03-15 12:43 | ESPR_ITS ---
Documentation for date of: 03/15/25 Subjective Subjective Interval history: Mr. Chase is a 49-year-old [place] gentle male who is well-known to me from my CKD clinic for the last few years has extensive past medical history of hypertension for more than 20 years, diabetes for more than 20 years, PVD with left BKA, dyslipidemia, renal osteodystrophy/secondary hyperparathyroidism, anemia of chronic kidney disease was last seen by me few months ago and missed a couple of appointments. Patient apparently has CKD stage V for the last 1-1/2-year and has been declining dialysis. [place] referrals to transplant center he never showed up or made a call to the transplant center. Patient presented to the emergency department with shortness of breath cough which is going on for the last 1 to 2 weeks. Patient denies any fever or chills. Did have flulike symptoms. No recent travel. He is still making urine. In the emergency department blood pressure 174/84, heart rate 76. O2 sat 98%. Labs showed hemoglobin 8.3, potassium 5.5, bicarbonate 18.6, BUN 95, creatinine 16.7, GFR 3, urinalysis showing significant proteinuria, glucosuria, blood. Chest x-ray negative for pneumonia. ER provider called me. Recommended medical management for hyperkalemia. Admitted to medical team. Renal consultation requested for hyperkalemia, CKD stage 5 and need for dialysis. Home medications included Janumet, Basaglar, amlodipine (seems incomplete as he is missing few medications) 03/15/2025 patient currently seen in telemetry. Still short of breath. Blood sugar 99. Blood pressure 156/91, heart rate 94. Hemoglobin 7.2. Sodium 141, potassium 4.6, bicarb 22.4, BUN 94, creatinine 16.8, A1c 6.7, phosphorus 11, magnesium 2.2, ferritin 1226, LFTs normal, albumin 3.2, LDL 92, TSH 1.92, urine protein/creatinine. Review of Systems Review of Systems Narrative Review of Systems: CONSTITUTIONAL: Patient denies any fever, chills. Complaining of fatigue HEENT: Denies any visual disturbances or hearing problems. CARDIOVASCULAR: Patient denies any chest pain, swelling in the lower extremities. PULMONARY: Patient c/o shortness of breath, cough. GASTROINTESTINAL: Patient denies any abdominal pain, constipation, nausea, vomiting, diarrhea. GENITOURINARY: Patient denies any urinary symptoms of burning or frequency or hematuria, ++ form in the urine. SKIN: Denies any rash. MUSCULOSKELETAL: Denies any muscular skeletal problems of joint pains. Left BKA NEUROLOGICAL: Denies any neurological problems of strokes, seizures or confusion. Denies any memory problems. PSYCHIATRIC: Denies any depression or anxiety. LYMPHATICS : No lymphadenopathy Exam Vital Signs Temp Pulse Resp BP Pulse Ox O2 Del Method FiO2 36.4 C 85 17 156/91 H 95 Room Air 21 03/15/25 12:00 03/15/25 15:10 03/15/25 15:10 03/15/25 12:52 03/15/25 15:10 03/15/25 12:00 03/15/25 15:10 Narrative Exam GENERAL APPEARANCE: Patient seems to be comfortable, adequately hydrated and nourished. Facial puffiness noted HEENT: EOMI, PERRLA NECK: Neck supple, no JVD or bruit CARDIOVASCULAR: Heart regular, no murmurs LUNGS/CHEST: Fine crackles bilaterally with some wheezing ABDOMEN: Soft, nontender, nondistended. No masses. Normal bowel sounds. EXTREMITIES: No edema, clubbing or cyanosis. SKIN: Skin exam normal without any rashes MUSCULOSKELETAL: Left BKA PSYCHIATRIC: Normal mood, affect LYMPHATICS: No lymphadenopathy noted NEUROLOGICAL : No neurological deficits Objective Labs 03/15/25 04:32 03/15/25 04:32 Labs: Laboratory Results - last 24 hr 03/14/25 03/14/25 03/14/25 12:03 20:39 22:38 WBC RBC Hgb Hct MCV MCH MCHC RDW Std Deviation Plt Count Neut % (Auto) Lymph % (Auto) [place] % (Auto) Eos % (Auto) Baso % (Auto) Neut # (Auto) Lymph # (Auto) [place] # (Auto) Eos # (Auto) Baso # (Auto) Immature Gran # (Auto) Absolute Nucleated RBC Immature Gran % Nucleated RBC % Sodium 136 Potassium 4.8 D 4.6 Chloride 104 Carbon Dioxide 19.1 L Anion Gap 13 BUN 98 H Creatinine 17.0 H* Estim Creat Clear Calc 5.3 L eGFR 3 L* BUN/Creatinine Ratio 6 L Glucose [address] Glu mg/dL Hemoglobin A1c Calculated Osmolality 305 H Calcium 8.0 L Corrected Calcium 8.7 Phosphorus 10.9 H 10.5 H Magnesium 2.2 Iron TIBC Iron Saturation Unsat Iron Binding Ferritin Total Bilirubin AST ALT Alkaline Phosphatase Total Protein Albumin 3.1 L D Globulin Albumin/Globulin Ratio Triglycerides Cholesterol LDL Cholesterol, Calc HDL Cholesterol Cholesterol/HDL Ratio TSH Ur Random Creatinine U Random Total Protein 03/15/25 03/15/25 04:32 04:34 WBC 6.9 RBC 2.64 L Hgb 7.2 L Hct 20.5 L* MCV 78 L MCH 27.3 MCHC 35.1 RDW Std Deviation 37.1 Plt Count 164 Neut % (Auto) 75 Lymph % (Auto) 12 [place] % (Auto) 10 Eos % (Auto) 3 Baso % (Auto) 0 Neut # (Auto) 5.1 Lymph # (Auto) 0.8 L [place] # (Auto) 0.7 Eos # (Auto) 0.2 Baso # (Auto) 0.0 Immature Gran # (Auto) 0.03 H Absolute Nucleated RBC 0.00 Immature Gran % 0 Nucleated RBC % 0 Sodium 141 Potassium 4.6 Chloride 104 Carbon Dioxide 22.4 Anion Gap 15 BUN 94 H Creatinine 16.8 H* Estim Creat Clear Calc 5.4 L eGFR 3 L* BUN/Creatinine Ratio 6 L Glucose [address] Glu mg/dL 146 H Hemoglobin A1c 6.7 H Calculated Osmolality 310 H Calcium 8.2 L Corrected Calcium 8.8 Phosphorus 11.0 H Magnesium 2.2 Iron 81 TIBC 260 Iron Saturation 31 Unsat Iron Binding 179 L Ferritin 1226 H Total Bilirubin 0.3 AST < 8 ALT 11 Alkaline Phosphatase 90 D Total Protein 5.7 Albumin 3.2 L Globulin 2.5 Albumin/Globulin Ratio 1.3 Triglycerides 119 Cholesterol 146 LDL Cholesterol, Calc 92 HDL Cholesterol 30 L Cholesterol/HDL Ratio 4.9 TSH 1.92 Ur Random Creatinine 58 U Random Total Protein 641 H Assessment & Plan Assessment and plan (1) CKD stage 5 due to type 2 diabetes mellitus: Status: Acute Assessment and plan: Patient has advanced CKD stage V secondary to diabetic/hypertensive nephrosclerosis. He has been refusing dialysis for the last currently with the sequelae of azotemia, anemia, renal osteodystrophy, hyperphosphatemia, hyperParathyroidism--patient seems to be end-stage kidney disease needing dialysis. Had a long conversation with the patient regarding the need for dialysis. He finally agreed. Will plan for dialysis on Sunday via PermCath. No need for urgent dialysis. Will do medical management for hyperkalemia and add bicitra for metabolic acidosis, binders for hyperphosphatemia, Retacrit for anemia. (2) Hyperphosphatemia: Status: Acute Assessment and plan: Add binders (3) Anemia in chronic kidney disease (CKD): Status: Acute Assessment and plan: Will give Epogen. Check iron stores (4) DM renal manif type II: Status: Acute Assessment and plan: Diabetes with all the sequelae including diabetic nephropathy, peripheral vascular disease. (5) HTN (hypertension), benign: Status: Acute Assessment and plan: Add ARB once dialysis initiated. Patient noted to have significant proteinuria (6) Hyperlipidemia: Status: Acute Assessment and plan: Check lipid panel Additional Assessment & Plan Additional Plan: Thank you Dr. Kraus for allowing me to participate in the care of Mr. Chase plan of care discussed with Dr. Kraus.
[2025-03-15] MEDS: EPOETIN ALFA INJ 1,000 UNIT/0.05 ML UNIT 10000 UNIT SC (12:51)
[2025-03-15] MEDS: ferumoxytoL (ESRD) 510 MG in SODIUM CHLORIDE 0.9% 100 ML 234 MG IV (12:52)
[2025-03-15] MEDS: FUROSEMIDE INJ 10 MG/ML 4ML VIAL 40 MG IVP (12:52)
--- NOTE | 2025-03-15 15:35 | XR_ITS ---
Examination: AP chest single view Technique one AP upright portable chest single view Exam date and time: March 15, 2025 1657 hrs. Indications: Shortness of breath today. Findings: Minimal prominence of ventricle Mild vascular congestion. No lobar pneumonia or pulmonary edema Impression: Mild vascular congestion
--- NOTE | 2025-03-15 19:19 | ESPR_ITS ---
<Statement entered by Remigio Garcia MD - 03/16/25 14:25> Patient seen and assessed at bedside. Patient is now agreeable to dialysis and we will have dialysis catheter placement arranged. Patient continues to require BiPAP today as he is feeling short of breath, will stop bicarb drip. Nephrology following appreciate recommendations. Case discussed with team. Remigio Garcia MD PGY3 Documentation for date of: 03/15/25 Subjective Subjective Interval history: Overnight team reported patient received labetalol for high blood pressure. Patient seen and examined at bedside this morning. Patient is saturating on room air and states that his shortness of breath has improved. However he is still indecisive about dialysis. Patient states that he is nervous about ending up in permanent dialysis. Patient states that he has been experiencing early satiety since this morning and epigastric discomfort. Patient denies nausea vomiting or diarrhea. Patient still making urine. Patient has no other complaints. Significant labs include BUN 94 creatinine 16.8 GFR 3 phosphorus 11. Although patient denies any melena or hematochezia and have never noticed any blood in his stool his hemoglobin is 7.2 and hematocrit 20.5. Will continue to monitor daily labs and transfuse as needed for hemoglobin below 7. Exam Vital Signs Temp Pulse Resp BP Pulse Ox O2 Del Method FiO2 98.1 F 84 26 H 155/91 H 97 BiPAP 21 03/15/25 16:00 03/15/25 16:00 03/15/25 16:00 03/15/25 16:00 03/15/25 16:00 03/15/25 16:00 03/15/25 15:10 Narrative Exam GENERAL: A&Ox3 . Awake, cooperative but appears to be anxious middle age male NEURO: no focal neurological deficits noted HEENT: Atraumatic, Normocephalic. mucous membranes moist. Eyes open, symmetrical, & clear HEART: Normal Heart Sounds LUNGS: faint rhonci through out the lungs bilaterally SKIN: No Rash or ecchymoses EXTREMITIES: LEFT BKA, No edema or tenderness, able to move all 4 extremities (inlcuding the L. BKA) , diminished pedal pulses in right foot Objective Labs 03/16/25 05:27 03/16/25 05:27 Labs: Laboratory Results - last 24 hr 03/14/25 03/14/25 03/15/25 20:39 22:38 04:32 WBC 6.9 RBC 2.64 L Hgb 7.2 L Hct 20.5 L* MCV 78 L MCH 27.3 MCHC 35.1 RDW Std Deviation 37.1 Plt Count 164 Neut % (Auto) 75 Lymph % (Auto) 12 [place] % (Auto) 10 Eos % (Auto) 3 Baso % (Auto) 0 Neut # (Auto) 5.1 Lymph # (Auto) 0.8 L [place] # (Auto) 0.7 Eos # (Auto) 0.2 Baso # (Auto) 0.0 Immature Gran # (Auto) 0.03 H Absolute Nucleated RBC 0.00 Immature Gran % 0 Nucleated RBC % 0 Sodium 136 141 Potassium 4.8 D 4.6 4.6 Chloride 104 104 Carbon Dioxide 19.1 L 22.4 Anion Gap 13 15 BUN 98 H 94 H Creatinine 17.0 H* 16.8 H* Estim Creat Clear Calc 5.3 L 5.4 L eGFR 3 L* 3 L* BUN/Creatinine Ratio 6 L 6 L Glucose [address] Glu mg/dL 146 H Hemoglobin A1c 6.7 H Calculated Osmolality 305 H 310 H Calcium 8.0 L 8.2 L Corrected Calcium 8.7 8.8 Phosphorus 10.5 H 11.0 H Magnesium 2.2 2.2 Iron 81 TIBC 260 Iron Saturation 31 Unsat Iron Binding 179 L Ferritin 1226 H Total Bilirubin 0.3 AST < 8 ALT 11 Alkaline Phosphatase 90 D Total Protein 5.7 Albumin 3.1 L D 3.2 L Globulin 2.5 Albumin/Globulin Ratio 1.3 Triglycerides 119 Cholesterol 146 LDL Cholesterol, Calc 92 HDL Cholesterol 30 L Cholesterol/HDL Ratio 4.9 TSH 1.92 Ur Random Creatinine U Random Total Protein 03/15/25 04:34 WBC RBC Hgb Hct MCV MCH MCHC RDW Std Deviation Plt Count Neut % (Auto) Lymph % (Auto) [place] % (Auto) Eos % (Auto) Baso % (Auto) Neut # (Auto) Lymph # (Auto) [place] # (Auto) Eos # (Auto) Baso # (Auto) Immature Gran # (Auto) Absolute Nucleated RBC Immature Gran % Nucleated RBC % Sodium Potassium Chloride Carbon Dioxide Anion Gap BUN Creatinine Estim Creat Clear Calc eGFR BUN/Creatinine Ratio Glucose Estimated Ave Glu mg/dL Hemoglobin A1c Calculated Osmolality Calcium Corrected Calcium Phosphorus Magnesium Iron TIBC Iron Saturation Unsat Iron Binding Ferritin Total Bilirubin AST ALT Alkaline Phosphatase Total Protein Albumin Globulin Albumin/Globulin Ratio Triglycerides Cholesterol LDL Cholesterol, Calc HDL Cholesterol Cholesterol/HDL Ratio TSH Ur Random Creatinine 58 U Random Total Protein 641 H Quality Measures Quality Measures none Assessment & Plan Assessment Current Active Medications: Generic Name Dose Route Start Last Admin Trade Name Freq PRN Reason Stop Dose Admin Acetaminophen 650 mg 03/14/25 15:32 Acetaminophen 325 Mg Tablet PO 04/13/25 15:31 Q6H PRN Fever >101.5 Albuterol/Ipratropium 3 ml 03/15/25 00:35 Albuterol/Ipratropium (Duoneb) Rt Caitlin 3 Ml Nebu INH 04/14/25 00:34 Q2HR PRN SHORTNESS OF BREATH OR WHEEZE Amlodipine Besylate 5 mg 03/15/25 09:00 03/15/25 08:23 Amlodipine Besylate 5 Mg Tablet PO 04/14/25 08:59 5 mg QDAY RAYSA Administration Calcium Acetate 1,334 mg 03/15/25 12:00 03/15/25 17:33 Calcium Acetate 667 Mg Tablet PO 04/14/25 11:59 1,334 mg TIDWM RAYSA Administration Citric Acid/Sodium Citrate 30 ml 03/14/25 21:00 03/15/25 08:24 Citric Acid/Sodium Citr 15 Ml Udc (Bicitra) PO 04/13/25 20:59 30 ml BID RAYSA Administration Dextrose 25 ml 03/14/25 15:49 Dextrose 50%-Water Inj 50 Ml Syringe IV 04/13/25 15:48 Q15MIN PRN BG 50-70 responsive npo pt Dextrose 50 ml 03/14/25 15:49 Dextrose 50%-Water Inj 50 Ml Syringe IV 04/13/25 15:48 Q15MIN PRN BG <50 OR BG <70 & pt unresponsive Furosemide 40 mg 03/15/25 12:00 03/15/25 12:52 Furosemide Inj 10 Mg/Ml 4ml Vial IVP 04/14/25 11:59 40 mg QDAY RAYSA Administration Glucagon 1 mg 03/14/25 15:49 Glucagon Inj 1 Mg Vial IM Q15MIN PRN BG <70, and no IV access Heparin Sodium (Porcine) 5,000 unit 03/14/25 22:00 03/15/25 13:22 Heparin Sod Inj 5000 Unit/Ml Vial SC 03/28/25 21:59 5,000 unit Q8HR RAYSA Administration Insulin Glargine 15 unit 03/15/25 09:00 Insulin Glargine (Lantus) 5 Unit/0.05 Ml (Per 5 Units) SC 04/14/25 08:59 QDAY [facility] Insulin Human Lispro 0 unit 03/14/25 17:00 03/15/25 17:32 Insulin Lispro (Admelog) 1 Unit/0.01 Ml Unit SC 04/13/25 16:59 Not Given AC [facility] Protocol Ondansetron HCl 4 mg 03/14/25 15:32 Ondansetron Inj 2 Mg/Ml Inj 2 Ml IV 04/13/25 15:31 Q6H PRN NAUSEA OR VOMITING Protocol Sodium Chloride 3 ml 03/14/25 14:22 03/14/25 14:46 Sodium Chloride Rt Caitlin 0.9% 3 Ml Nebu INH 04/13/25 14:21 3 ml PRN PRN Administration SOLN Plan Mr. Chase is a 49-year-old male with past medical history significant for hypertension and insulin-dependent type 2 diabetes presented to the ED accompanied by his complaining of shortness of breath and cough for the past 1 week. Pt is admitted for management of acute renal failure. #Acute renal failure, in the setting of #CKD #Possible ESRD - Patient has baseline creatinine in 2019 was 1.4, no records of creatinine in between 2019 and 2024. - On admission patient's creatinine is 16.7 and GFR 3 - Renal ultrasound Small kidneys with bilateral renal cortical thinning, Moderate bilateral renal parenchymal scar formation, No hydronephrosis Plan: - Tape Coater consulted, appreciate recommendations - Avoid nephrotoxic and renally dose medications - Ordered TB skin test and hepatitis panel in case patient may require permanent dialysis - PTH, vitamin D pending #Hyperkalemia- resolved #Nonanion gap metabolic acidosis- resolved - On admission patient's potassium is 5.5 and bicarb 18.6, likely secondary to acute renal failure - Patient is given albuterol treatment as well as started on bicarb drip - Continue to monitor daily labs #Normocytic anemia #Anemia of chronic disease - On admission hemoglobin is 8.3, hematocrit 24.1 and MCV 80 - No signs of active bleeding, Pt denies melena, hematochezia and hematemesis - This anemia is likely secondary to decreased erythropoetin production in CKD Plan: - Ordered iron panel plus ferritin for a.m. labs - Will continue to monitor daily CBC and transfuse if hemoglobin below 7 #Insulin-dependent type 2 diabetes -A1c 11.6 on 01/11/20 - On admission blood glucose 123 -Patient's home regimen includes 36 units of glargine and glipizide 5 mg Plan: -Insulin sliding scale ordered -AC at bedtime Accu-Cheks -Hypoglycemia protocol in place -A1c ordered for a.m. lab #Primary hypertension - Patient's home medication include lisinopril daily - Will hold lisinopril in the setting of acute renal failure - Started patient on amlodipine 10 mg daily Health Maintenance Disposition: telemetry DVT Prophylaxis: Heparin 5000 units SC Q8 hrs GI Prophylaxis: not indicated Diet: Renal Diet Lines: Peripheral lines Code status: Full Assessment and plan discussed with my senior resident Dr. Garcia & attending physician Dr. Efra Meade (PGY-1)- Internal medicine resident Attending Provider Attestation/Addendum Ellen Jacome, , attest that I was physically present for the casiano portions of the service and evaluated the patient with the resident and I reviewed and discussed the case with the resident and agree with the resident's findings and plans of care as documented above Patient seen and evaluated this AM. Patient noted to have some expiratory wheezing. Nephrology at bedside. Patient is agreeable to undergo HD at this time. Will place IR permacath order for AM. No need for emergent dialysis at this time as electrolytes are WNL. Will dc bicarb drip and continue with bicitra due to concern for fluid overlload. CXR shows mild vascular congestion. Patient in no acute distress and remains on room air.
[2025-03-16] VITALS (26 sets, daily range): BP systolic 111–180; BP diastolic 78–108; PULSE 80–95; RESP 12–92; TEMP 36.2–36.9; O2SAT 91–99; BMI 34.8
[2025-03-16 06:26] LABS: Basophils % (Auto) 0 % (0-2.5); Eosinophils # (Auto) 0.3 Thou/mm3 (0.0-0.5); Eosinophils % (Auto) 3 % (0-10); Hematocrit 20.8 % (41.0-53.0); Immature Granulocytes % (Auto) 1 % (0-0); Immature Granulocytes Auto 0.08 Thou/mm3 (0.00-0.00); Lymphocytes # (Auto) 1.3 Thou/mm3 (1.0-4.8); Lymphocytes % (Auto) 16 % (10-50); Mean Corpuscular HGB Conc 35.1 g/dl (31.0-37.0); Mean Corpuscular Hemoglobin 27.1 pg (25.0-35.0); Mean Corpuscular Volume 77 fL (80-100); Monocytes # (Auto) 1.1 Thou/mm3 (0.0-0.8); Monocytes % (Auto) 13 % (0-12); Neutrophils # (Auto) 5.4 Thou/mm3 (1.8-7.7); Neutrophils % (Auto) 67 % (37-80); Nucleated Red Blood Cell # 0.02 Thou/mm3 (0.00-0.00); Nucleated Red Blood Cell % 0 /100 WBC (0); Platelet Count 194 Thou/mm3 (140-440); RDW Standard Deviation 35.3 fL (35.1-43.9); Red Blood Count 2.69 Miln/mm3 (4.50-5.90); White Blood Count 8.1 Thou/mm3 (3.8-10.6)
[2025-03-16 06:52] LABS: Hemoglobin 7.3 g/dL (13.5-16.0)
[2025-03-16 07:01] LABS: Alanine Aminotransferase 12 U/L (10-49); Albumin, Serum 3.3 gm/dL (3.5-5.0); Anion Gap 13 (7-16); Aspartate Amino Transferase < 8 U/L (0-34); BUN/Creatinine Ratio 6 Ratio (12-20); Bilirubin,Total 0.3 mg/dL (0.3-1.2); Blood Urea Nitrogen 98 mg/dL (9-23); Calcium 8.3 mg/dL (8.3-10.6); Carbon Dioxide 27.2 mMol/L (20.0-31.0); Chloride 96 mMol/L (98-107); Estimated Creatinine Clearance 5.4 mL/min (>60); Glucose 98 mg/dL (74-106); Magnesium 2.1 mg/dL (1.6-2.6); Osmolality,Calculated 302 (275-295); Potassium 4.5 mMol/L (3.4-5.1); Sodium 136 mMol/L (136-145); eGFR 3 See Note
[2025-03-16 07:02] LABS: Albumin/Globulin Ratio 1.2 (1.2-2.2); Alkaline Phosphatase 90 U/L (46-116); Calcium (Corrected) 8.9 mg/dL (8.5-10.1); Creatinine (Component) 16.8 mg/dL (0.6-1.3); Globulin 2.7 gm/dL (2.3-3.5); Phosphorous 10.4 mg/dL (2.4-5.1)
--- NOTE | 2025-03-16 08:00 | XR_ITS ---
Ultrasound-guided needle placement right internal jugular vein Permanent tunneled dialysis catheter insertion, percutaneous Fluoroscopy AP chest, portable, single view. Date and time of procedure: March 16, 2025 1018 hours INDICATIONS: Renal failure, need for stat and long-term dialysis Informed consent provided Technique: A timeout was completed verifying correct patient, procedure, site, positioning, and special equipment if applicable. The patient was placed in a dependent position appropriate for dialysis catheter placement based on the vein to be cannulated. The patient'sright neck was prepped and draped in sterile fashion. Maximum Sterile Barrier Technique used including cap, mask, sterile gown, sterile gloves, and sterile full body drape. If ultrasound technique used: sterile gel and sterile probe covers. Hand Hygiene performed using proper scrub, soap and water, or alcohol-based hand rub. 1% lidocaine was used to anesthetize the surrounding skin area The [facility] portable ultrasound apparatus utilized to confirm patency of the right internal jugular vein Utilizing ultrasonographic guidance successful 21-gauge needle puncture into the right internal jugular vein. Ultrasound images were recorded and stored. Vessel micropuncture was performed with 21-gauge needle. 0.18 wire guide is introduced into the vein. 0.18 wire is introduced into the vena cava under fluoroscopy. Subcutaneous tunnel formed in the upper chest. Permanent tunneled dialysis catheter placed in the subcutaneous tunnel. Dilators were introduced over the J-wire guide. Tunneled dialysis catheter is introduced through a dilator with venous sheath into the superior vena cava under fluoroscopic guidance. The catheter is sutured in place to the skin and a sterile dressing applied. Perfusion to the extremity distal to the point of catheter insertion is checked and found to be adequate Attending radiologist was present for the entire procedure Estimated blood loss2 cc. The patient tolerated the procedure well and there were no complications Impression: Successful ultrasound-guided needle placement right internal jugular vein Successful permanent tunneled dialysis catheter insertion, percutaneous Fluoroscopy 0.3 minute radiation dose 2.72 milligray 1 spot fluoroscopic chest film 14 Armenian 24 cm permanent tunneled dialysis catheter. AP chest performed at completion procedure demonstrates satisfactory position dialysis catheter. May use dialysis catheter.
[2025-03-16] MEDS: FUROSEMIDE INJ 10 MG/ML 4ML VIAL 40 MG IVP (08:19)
[2025-03-16] MEDS: CALCIUM ACETATE 667 MG TABLET 1334 MG PO ×3 (08:20→17:10)
[2025-03-16] MEDS: amLODIPine BESYLATE 5 MG TABLET PO (08:20)
[2025-03-16] MEDS: CITRIC ACID/SODIUM CITR 15 ML UDC (BICITRA) 30 ML PO ×2 (08:22→21:14)
[2025-03-16 09:05] LABS: Partial Thromboplastin Time 30.2 Seconds (22.0-36.0); Prothrombin Time 11.1 Seconds (9.0-12.2)
--- NOTE | 2025-03-16 09:06 | PD.RESCONSUL ---
HPI Data of Consult Requesting Physician: Ellne Kraus DO Admitting Provider: Ellen Kraus DO Attending Provider: Ellen Kraus DO Primary Care Provider: Sid Velasquez PA-C Consult Narrative History of present illness: Mr. Chase is a 49-year-old [place] gentle male who is well-known to me from my CKD clinic for the last few years has extensive past medical history of hypertension for more than 20 years, diabetes for more than 20 years, PVD with left BKA, dyslipidemia, renal osteodystrophy/secondary hyperparathyroidism, anemia of chronic kidney disease was last seen by me few months ago and missed a couple of appointments. Patient apparently has CKD stage V for the last 1-1/2-year and has been declining dialysis. [place] referrals to transplant center he never showed up or made a call to the transplant center. Patient presented to the emergency department with shortness of breath cough which is going on for the last 1 to 2 weeks. Patient denies any fever or chills. Did have flulike symptoms. No recent travel. He is still making urine. In the emergency department blood pressure 174/84, heart rate 76. O2 sat 98%. Labs showed hemoglobin 8.3, potassium 5.5, bicarbonate 18.6, BUN 95, creatinine 16.7, GFR 3, urinalysis showing significant proteinuria, glucosuria, blood. Chest x-ray negative for pneumonia. ER provider called me. Recommended medical management for hyperkalemia. Admitted to medical team. Renal consultation requested for hyperkalemia, CKD stage 5 and need for dialysis. Home medications included Janumet, Basaglar, amlodipine (seems incomplete as he is missing few medications) 03/15/2025 patient currently seen in telemetry. Still short of breath. Blood sugar 99. Blood pressure 156/91, heart rate 94. Hemoglobin 7.2. Sodium 141, potassium 4.6, bicarb 22.4, BUN 94, creatinine 16.8, A1c 6.7, phosphorus 11, magnesium 2.2, ferritin 1226, LFTs normal, albumin 3.2, LDL 92, TSH 1.92, urine protein/creatinine. 03/16/2025 Examined at bedside on tele. Doing well today. Denies fever, chills, headaches, chest pain, sob, cough, GI or urinary symptoms. Renal function poor, CR 16.8, BUN 98, EGFR 3, Hgb 7.3, WBC 8.1, PLT 194. Discussed HD with patient and at bedside. Will proceed with perm-cath. Pending TB, HIV, Hep panel. HEPARIN on hold. cc:: cc: Ellen Kraus, DO Exam Vital Signs Temp Pulse Resp BP Pulse Ox O2 Del Method FiO2 98.1 F 85 20 163/86 H 91 L Room Air 03/16/25 08:00 03/16/25 08:20 03/16/25 08:00 03/16/25 08:20 03/16/25 08:00 03/16/25 08:00 03/15/25 22:25 Narrative Exam GENERAL APPEARANCE: Patient seems to be comfortable, adequately hydrated and nourished. Facial puffiness noted HEENT: EOMI, PERRLA NECK: Neck supple, no JVD or bruit CARDIOVASCULAR: Heart regular, no murmurs LUNGS/CHEST: Fine crackles bilaterally with some wheezing ABDOMEN: Soft, nontender, nondistended. No masses. Normal bowel sounds. EXTREMITIES: No edema, clubbing or cyanosis. SKIN: Skin exam normal without any rashes MUSCULOSKELETAL: Left BKA PSYCHIATRIC: Normal mood, affect LYMPHATICS: No lymphadenopathy noted NEUROLOGICAL : No neurological deficits Results Labs 03/16/25 05:27 03/16/25 05:27 Labs: Short CBC 03/16/25 Range/Units 05:27 WBC 8.1 (3.8-10.6) Thou/mm3 Hgb 7.3 L (13.5-16.0) g/dL Hct 20.8 L* (41.0-53.0) % Plt Count 194 D (140-440) Thou/mm3 BMP 03/16/25 05:27 Sodium 136 Potassium 4.5 Chloride 96 L Carbon Dioxide 27.2 BUN 98 H Creatinine 16.8 H* Glucose 98 Calcium 8.3 Liver Function 03/16/25 Range/Units 05:27 Total Bilirubin 0.3 (0.3-1.2) mg/dL AST < 8 (0-34) U/L ALT 12 (10-49) U/L Alkaline Phosphatase 90 (46-116) U/L Albumin 3.3 L (3.5-5.0) gm/dL Quality Measures Quality Measures none Medications Home Medications and Allergies Home Medications ?Medication ?Instructions ?Recorded ?Confirmed ?Type amlodipine 5 mg tablet 5 mg PO QDAY 09/01/20 09/01/20 History insulin glargine 100 unit/mL (3 35 unit subcut QDAY 09/01/20 09/01/20 History mL) subcutaneous pen (Basaglar KwikPen U-100 Insulin) sitagliptin phosphate 50 1 tab PO BID 09/01/20 09/01/20 History mg-metformin 1,000 mg tablet (Janumet) Allergies Allergy/AdvReac Type Severity Reaction Status Date / Time No Known Allergies Allergy Verified 03/14/25 10:47 Visit Medications Acetaminophen (Acetaminophen 325 Mg Tablet) 650 mg PO Q6H PRN PRN Reason: Fever >101.5 Stop: 04/13/25 15:31 Albuterol/Ipratropium (Albuterol/Ipratropium (Duoneb) Rt Caitlin 3 Ml Nebu) 3 ml INH Q2HR PRN PRN Reason: SHORTNESS OF BREATH OR WHEEZE Stop: 04/14/25 00:34 Amlodipine Besylate (Amlodipine Besylate 5 Mg Tablet) 5 mg PO QDAY [facility] Stop: 04/14/25 08:59 Last Admin: 03/16/25 08:20 Dose: 5 mg Calcium Acetate (Calcium Acetate 667 Mg Tablet) 1,334 mg PO TIDWM [facility] Stop: 04/14/25 11:59 Last Admin: 03/16/25 08:20 Dose: 1,334 mg Citric Acid/Sodium Citrate (Citric Acid/Sodium Citr 15 Ml Udc (Bicitra)) 30 ml PO BID RAYSA Stop: 04/13/25 20:59 Last Admin: 03/16/25 08:22 Dose: 30 ml Dextrose (Dextrose 50%-Water Inj 50 Ml Syringe) 25 ml IV Q15MIN PRN PRN Reason: BG 50-70 responsive npo pt Stop: 04/13/25 15:48 Dextrose (Dextrose 50%-Water Inj 50 Ml Syringe) 50 ml IV Q15MIN PRN PRN Reason: BG <50 OR BG <70 & pt unresponsive Stop: 04/13/25 15:48 Furosemide (Furosemide Inj 10 Mg/Ml 4ml Vial) 40 mg IVP QDAY [facility] Stop: 04/14/25 11:59 Last Admin: 03/16/25 08:19 Dose: 40 mg Glucagon (Glucagon Inj 1 Mg Vial) 1 mg IM Q15MIN PRN PRN Reason: BG <70, and no IV access Heparin Sodium (Porcine) (Heparin Sod Inj 5000 Unit/Ml Vial) 5,000 unit SC Q8HR RAYSA Stop: 03/28/25 21:59 Last Admin: 03/15/25 21:27 Dose: Not Given Insulin Glargine (Insulin Glargine (Lantus) 5 Unit/0.05 Ml (Per 5 Units)) 15 unit SC QDAY [facility] Stop: 04/14/25 08:59 Insulin Human Lispro (Insulin Lispro (Admelog) 1 Unit/0.01 Ml Unit) 0 unit SC AC [facility]; Protocol Stop: 04/13/25 16:59 Last Admin: 03/16/25 07:20 Dose: Not Given Ondansetron HCl (Ondansetron Inj 2 Mg/Ml Inj 2 Ml) 4 mg IV Q6H PRN; Protocol PRN Reason: NAUSEA OR VOMITING Stop: 04/13/25 15:31 Sodium Chloride (Sodium Chloride Rt Caitlin 0.9% 3 Ml Nebu) 3 ml INH PRN PRN PRN Reason: SOLN Stop: 04/13/25 14:21 Last Admin: 03/14/25 14:46 Dose: 3 ml Discontinued Medications Albuterol (Albuterol Rt 2.5 Mg/0.5 Ml Nebu) 5 mg INH X1 ONE Stop: 03/14/25 14:23 Last Admin: 03/14/25 14:47 Dose: 5 mg Albuterol/Ipratropium (Albuterol/Ipratropium (Duoneb) Rt Caitlin 3 Ml Nebu) 3 ml INH X1 ONE Stop: 03/14/25 21:24 Last Admin: 03/14/25 22:41 Dose: 3 ml Amlodipine Besylate (Amlodipine Besylate 5 Mg Tablet) 10 mg PO QDAY [facility] Stop: 04/13/25 15:59 Last Admin: 03/14/25 17:26 Dose: 10 mg Amlodipine Besylate (Amlodipine Besylate 5 Mg Tablet) 5 mg PO QDAY [facility] Stop: 04/14/25 00:34 Last Admin: 03/15/25 00:53 Dose: 5 mg Calcium Chloride (Calcium Chloride 10% Inj 10 Ml Syrg) 10 ml IV X1 ONE Stop: 03/14/25 14:23 Last Admin: 03/14/25 14:59 Dose: 10 ml Epoetin Nba (Epoetin Nba Inj 1,000 Unit/0.05 Ml Unit) 10,000 unit SC X1 ONE Stop: 03/15/25 11:28 Last Admin: 03/15/25 12:51 Dose: 10,000 unit Furosemide (Furosemide Inj 10 Mg/Ml 4ml Vial) 40 mg IVP X1 ONE Stop: 03/14/25 14:23 Last Admin: 03/14/25 15:00 Dose: 40 mg Dextrose (D10w 1000 Ml) 1,000 mls @ 100 mls/hr IV .Q10H [facility] Stop: 03/15/25 00:29 Last Admin: 03/14/25 15:04 Dose: 100 mls/hr Sodium Bicarbonate 88.23 meq/ (Dextrose) 588.23 mls @ 100 mls/hr IV .Q5H53M [facility] Stop: 04/13/25 16:44 Last Admin: 03/15/25 07:34 Dose: Not Given Sodium Bicarbonate 88.23 meq/ (Dextrose) 588.23 mls @ 100 mls/hr IV .Q5H53M [facility] Stop: 04/13/25 16:44 Last Admin: 03/15/25 15:38 Dose: 100 mls/hr Ferumoxytol 510 mg/ Sodium (Chloride) 117 mls @ 234 mls/hr IV X1 ONE Stop: 03/15/25 11:59 Last Admin: 03/15/25 12:52 Dose: 234 mls/hr Labetalol HCl (Labetalol Inj 5 Mg/Ml Vial 20 Ml) 2.5 mg IVP X1 ONE Stop: 03/15/25 00:36 Last Admin: 03/15/25 00:54 Dose: 2.5 mg Metoclopramide HCl (Metoclopramide 5 Mg Tablet) 5 mg PO X1 ONE Stop: 03/15/25 10:00 Last Admin: 03/15/25 11:03 Dose: 5 mg Sodium Polystyrene Sulfonate (Sod Polystyrene Sulfon Susp 15 Gm/60 Ml Btl) 30 gm PO X1 ONE Stop: 03/14/25 14:23 Last Admin: 03/14/25 15:00 Dose: 30 gm Tuberculin PPD (Tuberculin Ppd Inj 5 Unit/0.1 Ml Dose) 5 unit ID X1 ONE Stop: 03/14/25 15:33 Last Admin: 03/14/25 17:26 Dose: 5 unit
--- NOTE | 2025-03-16 09:20 | ESPR_ITS ---
Documentation for date of: 03/16/25 Subjective Subjective Interval history: Mr. Chase is a 49-year-old [place] gentle male who is well-known to me from my CKD clinic for the last few years has extensive past medical history of hypertension for more than 20 years, diabetes for more than 20 years, PVD with left BKA, dyslipidemia, renal osteodystrophy/secondary hyperparathyroidism, anemia of chronic kidney disease was last seen by me few months ago and missed a couple of appointments. Patient apparently has CKD stage V for the last 1-1/2-year and has been declining dialysis. [place] referrals to transplant center he never showed up or made a call to the transplant center. Patient presented to the emergency department with shortness of breath cough which is going on for the last 1 to 2 weeks. Patient denies any fever or chills. Did have flulike symptoms. No recent travel. He is still making urine. In the emergency department blood pressure 174/84, heart rate 76. O2 sat 98%. Labs showed hemoglobin 8.3, potassium 5.5, bicarbonate 18.6, BUN 95, creatinine 16.7, GFR 3, urinalysis showing significant proteinuria, glucosuria, blood. Chest x-ray negative for pneumonia. ER provider called me. Recommended medical management for hyperkalemia. Admitted to medical team. Renal consultation requested for hyperkalemia, CKD stage 5 and need for dialysis. Home medications included Janumet, Basaglar, amlodipine (seems incomplete as he is missing few medications) 03/15/2025 patient currently seen in telemetry. Still short of breath. Blood sugar 99. Blood pressure 156/91, heart rate 94. Hemoglobin 7.2. Sodium 141, potassium 4.6, bicarb 22.4, BUN 94, creatinine 16.8, A1c 6.7, phosphorus 11, magnesium 2.2, ferritin 1226, LFTs normal, albumin 3.2, LDL 92, TSH 1.92, urine protein/creatinine. 03/16/2025 Examined at bedside on tele. Doing well today. Denies fever, chills, headaches, chest pain, sob, cough, GI or urinary symptoms. Renal function poor, CR 16.8, BUN 98, EGFR 3, Hgb 7.3, WBC 8.1, PLT 194. US showed bilateral small kidneys, cortical thinning and parenchymal scaring. Discussed HD with patient and at bedside. Will proceed with perm-cath. Pending TB, HIV, Hep panel, PTH, vit-D. HEPARIN on hold, continue SCDs for now. Exam Vital Signs Temp Pulse Resp BP Pulse Ox O2 Del Method FiO2 98.1 F 85 20 163/86 H 91 L Room Air 21 03/16/25 08:00 03/16/25 08:20 03/16/25 08:00 03/16/25 08:20 03/16/25 08:00 03/16/25 08:00 03/15/25 22:25 Narrative Exam GENERAL APPEARANCE: Patient seems to be comfortable, adequately hydrated and nourished. Facial puffiness noted HEENT: EOMI, PERRLA NECK: Neck supple, no JVD or bruit CARDIOVASCULAR: Heart regular, no murmurs LUNGS/CHEST: Fine crackles bilaterally with some wheezing ABDOMEN: Soft, nontender, nondistended. No masses. Normal bowel sounds. EXTREMITIES: No edema, clubbing or cyanosis. SKIN: Skin exam normal without any rashes MUSCULOSKELETAL: Left BKA PSYCHIATRIC: Normal mood, affect LYMPHATICS: No lymphadenopathy noted NEUROLOGICAL : No neurological deficits Objective Labs 03/17/25 06:05 03/17/25 06:05 Labs: Laboratory Results - last 24 hr 03/16/25 05:27 WBC 8.1 RBC 2.69 L Hgb 7.3 L Hct 20.8 L* MCV 77 L MCH 27.1 MCHC 35.1 RDW Std Deviation 35.3 Plt Count 194 D Neut % (Auto) 67 Lymph % (Auto) 16 [place] % (Auto) 13 H Eos % (Auto) 3 Baso % (Auto) 0 Neut # (Auto) 5.4 Lymph # (Auto) 1.3 [place] # (Auto) 1.1 H Eos # (Auto) 0.3 Baso # (Auto) 0.0 Immature Gran # (Auto) 0.08 H Absolute Nucleated RBC 0.02 H Immature Gran % 1 H Nucleated RBC % 0 PT 11.1 INR 1.0 APTT 30.2 Sodium 136 Potassium 4.5 Chloride 96 L Carbon Dioxide 27.2 Anion Gap 13 BUN 98 H Creatinine 16.8 H* Estim Creat Clear Calc 5.4 L eGFR 3 L* BUN/Creatinine Ratio 6 L Glucose 98 Calculated Osmolality 302 H Calcium 8.3 Corrected Calcium 8.9 Phosphorus 10.4 H Magnesium 2.1 Total Bilirubin 0.3 AST < 8 ALT 12 Alkaline Phosphatase 90 Total Protein 6.0 Albumin 3.3 L Globulin 2.7 Albumin/Globulin Ratio 1.2 Quality Measures Quality Measures none Assessment & Plan Assessment Current Active Medications: Generic Name Dose Route Start Last Admin Trade Name Freq PRN Reason Stop Dose Admin Acetaminophen 650 mg 03/14/25 15:32 Acetaminophen 325 Mg Tablet PO 04/13/25 15:31 Q6H PRN Fever >101.5 Albuterol/Ipratropium 3 ml 03/15/25 00:35 Albuterol/Ipratropium (Duoneb) Rt Caitlin 3 Ml Nebu INH 04/14/25 00:34 Q2HR PRN SHORTNESS OF BREATH OR WHEEZE Amlodipine Besylate 5 mg 03/15/25 09:00 03/16/25 08:20 Amlodipine Besylate 5 Mg Tablet PO 04/14/25 08:59 5 mg QDAY RAYSA Administration Calcium Acetate 1,334 mg 03/15/25 12:00 03/16/25 08:20 Calcium Acetate 667 Mg Tablet PO 04/14/25 11:59 1,334 mg TIDWM RAYSA Administration Citric Acid/Sodium Citrate 30 ml 03/14/25 21:00 03/16/25 08:22 Citric Acid/Sodium Citr 15 Ml Udc (Bicitra) PO 04/13/25 20:59 30 ml BID RAYSA Administration Dextrose 25 ml 03/14/25 15:49 Dextrose 50%-Water Inj 50 Ml Syringe IV 04/13/25 15:48 Q15MIN PRN BG 50-70 responsive npo pt Dextrose 50 ml 03/14/25 15:49 Dextrose 50%-Water Inj 50 Ml Syringe IV 04/13/25 15:48 Q15MIN PRN BG <50 OR BG <70 & pt unresponsive Furosemide 40 mg 03/15/25 12:00 03/16/25 08:19 Furosemide Inj 10 Mg/Ml 4ml Vial IVP 04/14/25 11:59 40 mg QDAY RAYSA Administration Glucagon 1 mg 03/14/25 15:49 Glucagon Inj 1 Mg Vial IM Q15MIN PRN BG <70, and no IV access Heparin Sodium (Porcine) 5,000 unit 03/14/25 22:00 03/15/25 21:27 Heparin Sod Inj 5000 Unit/Ml Vial SC 03/28/25 21:59 Not Given Q8HR RAYSA Insulin Glargine 15 unit 03/15/25 09:00 Insulin Glargine (Lantus) 5 Unit/0.05 Ml (Per 5 Units) SC 04/14/25 08:59 QDAY RAYSA Insulin Human Lispro 0 unit 03/14/25 17:00 03/16/25 07:20 Insulin Lispro (Admelog) 1 Unit/0.01 Ml Unit SC 04/13/25 16:59 Not Given AC [facility] Protocol Ondansetron HCl 4 mg 03/14/25 15:32 Ondansetron Inj 2 Mg/Ml Inj 2 Ml IV 04/13/25 15:31 Q6H PRN NAUSEA OR VOMITING Protocol Sodium Chloride 3 ml 03/14/25 14:22 03/14/25 14:46 Sodium Chloride Rt Caitlin 0.9% 3 Ml Nebu INH 04/13/25 14:21 3 ml PRN PRN Administration SOLN Plan Patient has advanced CKD stage V secondary to diabetic/hypertensive nephrosclerosis. He has been refusing dialysis for the last currently with the sequelae of azotemia, anemia, renal osteodystrophy, hyperphosphatemia, hyperParathyroidism--patient seems to be end-stage kidney disease needing dialysis. Had a long conversation with the patient regarding the need for dialysis. He finally agreed. Will plan for dialysis on Sunday via PermCath. No need for urgent dialysis. Will do medical management for hyperkalemia and add bicitra for metabolic acidosis, binders for hyperphosphatemia, Retacrit for anemia. ESRD new to HD Hyperphosphatemia Hyperkalemia (resolved) CR 16.8, BUN 98, EGFR 3. Potassium 4.5. Phos 10.4 Discussed HD today with pt and at bedside. Will proceed with HD cath and HD today if possible. Pending HIV, HEP panel, TB, PTH, vit-D Holding HEPARIN, cont with SCDs. Anemia in CKD Chronic, Hgb 7.3 ? EPO with HD #Nonanion gap metabolic acidosis- resolved #Normocytic anemia #Insulin-dependent type 2 diabetes #Primary hypertension ? Managed by primary team Thank you for the opportunity to participate in the patient's care. Case was discussed with attending, Dr. Gipson. Venessa Carmona DO PGYI Attending Provider Attestation/Addendum Patient seen and examined with resident physician Dr. Johnson. Note reviewed, agree with findings and recommendations. Patient has advanced CKD stage V secondary to diabetic/hypertensive nephrosclerosis now progressed to ESRD. . He has been refusing dialysis for the last 2 yrs . currently with the sequelae of azotemia, anemia, renal osteodystrophy, hyperphosphatemia, hyperParathyroidism--patient agreed for dialysis. S/p permacath. Patient currently seen on dialysis. Tolerating dialysis without any problems. Hemodialysis for 2 hours, 2K, ultrafiltration 1 L, Epogen 6000, no heparin ordered. Plan of care discussed with the dialysis nurse. Please see dialysis flowsheet for further details. ppd, hep panel, outpatient dialysis ordered
--- NOTE | 2025-03-16 09:40 | PC.SS ---
follow up note; Patient will be new Dialysis patient, pending chair time with Dr. Pollard. SS will sent all needed clinicals to [facility]. Patient will return back home when medically cleared.
--- NOTE | 2025-03-16 10:46 | PC.SS ---
Patient Nathan Chase is a 49 Year old male admitted for Acute Renal Failure. SS met with patient and patient's , Jose Enrique Chase at bedside to review demographic information. Patient's , reports she is surrogate decision maker, [phone]. Patient lives at home with . Patient is able to complete all ADL's independently. Patient is able to ambulate without DME, however has left leg prosthesis. Patient utilizes home 02 at 2-3L as needed. Patient is also being followed by Dr. Pollard and will need to be established with Chair time. Patients PCP is Sid Velasquez. Patient will discharge back home when medically cleared. Next of Kin: , Jose Enrique Chase Discharge Plan: Home
--- NOTE | 2025-03-16 11:15 | PC.SS ---
Addendum entered by Hayley Breen 03/16/25 11:38: SS follow up note; SS contacted Leatha from [facility] and provided patient's Social Security who was provided by Patient's . SS contacted Dr. Pham in regards to ordering specific Hep pannels: Hep Core Antibody and Surface Antibosy. Hep B core IGM included with Hep B Core IGGme core in case [facility] does not accept patient, SS would then sent out to [facility]. SS will stand by for further needs. Original Note: SS follow up note; SS faxed Clinicals to [facility], Patient will be new Dialysis patient, Pending Perm-Cath, TB test, and HEP Pannels.
[2025-03-16] MEDS: HEPARIN SOD LOCK SYR 100 UNIT/ML 500 UNIT STFIELD (11:18)
[2025-03-16] MEDS: LIDOCAINE INJ PF 1% 30 ML VIAL 10 ML EPID (11:18)
[2025-03-16] MEDS: fentaNYL CIT INJ 50 mCg/ML AMP 2ML 75 MCG IVP (11:18)
[2025-03-16] MEDS: HEPARIN SOD INJ 1000 UNIT/ML VIAL 3800 UNIT INDWELLCAT (11:30)
[2025-03-16 11:36] LABS: HIV (1&2) Antibody Rapid Non-Reactive
[2025-03-16 12:29] LABS: Hepatitis B Surface Ab Reactive (Immune) (Immune)
--- NOTE | 2025-03-16 14:41 | ESPR_ITS ---
Documentation for date of: 03/16/25 Subjective Subjective Interval history: Patient was seen and examined at the bedside. No acute overnight events. Dialysis catheter was placed today and patient is set for dialysis. He does not have new complaints. Will continue current management and monitor patient. Exam Vital Signs Temp Pulse Resp BP Pulse Ox O2 Del Method O2 Flow Rate 97.8 F 85 18 126/89 H 95 Room Air 2 03/16/25 12:54 03/16/25 14:30 03/16/25 12:54 03/16/25 14:30 03/16/25 12:54 03/16/25 12:00 03/16/25 11:24 FiO2 21 03/15/25 22:25 Narrative Exam Gen: Well-developed and well-nourished male. HEENT: NCAT, PERRLA, EOMI, MMM, anicteric conjunctivae. CVS: normal S1 and S2. RRR. No M/R/G. Resp: CTA B/L. No rhonchi, rales, crackles or wheezing. Abd: soft, non-tender, non-distended. BS+ in all 4 quadrants. MSK: Good ROM in BUE & BLE. No edema or rash. S/p left BKA. Dialysis catheter in place, no bleeding observed. Neuro: CN II-XII grossly intact. Strength 5/5 in BUE. Alert and oriented x3. Psych: appropriate mood and affect. Objective Labs 03/17/25 06:05 03/17/25 06:05 Labs: Laboratory Results - last 24 hr 03/16/25 05:27 WBC 8.1 RBC 2.69 L Hgb 7.3 L Hct 20.8 L* MCV 77 L MCH 27.1 MCHC 35.1 RDW Std Deviation 35.3 Plt Count 194 D Neut % (Auto) 67 Lymph % (Auto) 16 [place] % (Auto) 13 H Eos % (Auto) 3 Baso % (Auto) 0 Neut # (Auto) 5.4 Lymph # (Auto) 1.3 [place] # (Auto) 1.1 H Eos # (Auto) 0.3 Baso # (Auto) 0.0 Immature Gran # (Auto) 0.08 H Absolute Nucleated RBC 0.02 H Immature Gran % 1 H Nucleated RBC % 0 PT 11.1 INR 1.0 APTT 30.2 Sodium 136 Potassium 4.5 Chloride 96 L Carbon Dioxide 27.2 Anion Gap 13 BUN 98 H Creatinine 16.8 H* Estim Creat Clear Calc 5.4 L eGFR 3 L* BUN/Creatinine Ratio 6 L Glucose 98 Calculated Osmolality 302 H Calcium 8.3 Corrected Calcium 8.9 Phosphorus 10.4 H Magnesium 2.1 Total Bilirubin 0.3 AST < 8 ALT 12 Alkaline Phosphatase 90 Total Protein 6.0 Albumin 3.3 L Globulin 2.7 Albumin/Globulin Ratio 1.2 Hep Bs Antibody Reactive (Immune) HIV 1&2 Antibody Rapid Non-Reactive Quality Measures Quality Measures VTE prophylaxis Assessment & Plan Assessment Current Active Medications: Generic Name Dose Route Start Last Admin Trade Name Freq PRN Reason Stop Dose Admin Acetaminophen 650 mg 03/14/25 15:32 Acetaminophen 325 Mg Tablet PO 04/13/25 15:31 Q6H PRN Fever >101.5 Albuterol/Ipratropium 3 ml 03/15/25 00:35 Albuterol/Ipratropium (Duoneb) Rt Caitlin 3 Ml Nebu INH 04/14/25 00:34 Q2HR PRN SHORTNESS OF BREATH OR WHEEZE Amlodipine Besylate 5 mg 03/15/25 09:00 03/16/25 08:20 Amlodipine Besylate 5 Mg Tablet PO 04/14/25 08:59 5 mg QDAY RAYSA Administration Calcium Acetate 1,334 mg 03/15/25 12:00 03/16/25 11:59 Calcium Acetate 667 Mg Tablet PO 04/14/25 11:59 1,334 mg TIDWM RAYSA Administration Citric Acid/Sodium Citrate 30 ml 03/14/25 21:00 03/16/25 08:22 Citric Acid/Sodium Citr 15 Ml Udc (Bicitra) PO 04/13/25 20:59 30 ml BID RAYSA Administration Dextrose 25 ml 03/14/25 15:49 Dextrose 50%-Water Inj 50 Ml Syringe IV 04/13/25 15:48 Q15MIN PRN BG 50-70 responsive npo pt Dextrose 50 ml 03/14/25 15:49 Dextrose 50%-Water Inj 50 Ml Syringe IV 04/13/25 15:48 Q15MIN PRN BG <50 OR BG <70 & pt unresponsive Furosemide 40 mg 03/15/25 12:00 03/16/25 08:19 Furosemide Inj 10 Mg/Ml 4ml Vial IVP 04/14/25 11:59 40 mg QDAY RAYSA Administration Glucagon 1 mg 03/14/25 15:49 Glucagon Inj 1 Mg Vial IM Q15MIN PRN BG <70, and no IV access Heparin Sodium (Porcine) 5,000 unit 03/14/25 22:00 03/15/25 21:27 Heparin Sod Inj 5000 Unit/Ml Vial SC 03/28/25 21:59 Not Given Q8HR RAYSA Insulin Glargine 15 unit 03/15/25 09:00 Insulin Glargine (Lantus) 5 Unit/0.05 Ml (Per 5 Units) SC 04/14/25 08:59 QDAY RAYSA Insulin Human Lispro 0 unit 03/14/25 17:00 03/16/25 11:58 Insulin Lispro (Admelog) 1 Unit/0.01 Ml Unit SC 04/13/25 16:59 Not Given AC [facility] Protocol Ondansetron HCl 4 mg 03/14/25 15:32 Ondansetron Inj 2 Mg/Ml Inj 2 Ml IV 04/13/25 15:31 Q6H PRN NAUSEA OR VOMITING Protocol Sodium Chloride 3 ml 03/14/25 14:22 03/14/25 14:46 Sodium Chloride Rt Caitlin 0.9% 3 Ml Nebu INH 04/13/25 14:21 3 ml PRN PRN Administration SOLN Plan Mr. Chase is a 49-year-old male with past medical history significant for hypertension and insulin-dependent type 2 diabetes presented to the ED accompanied by his complaining of shortness of breath and cough for the past 1 week. Pt is admitted for management of acute renal failure. #Acute renal failure, in the setting of #CKD. #Possible ESRD. - Patient has baseline creatinine in 2019 was 1.4, no records of creatinine in between 2019 and 2024. - On admission patient's creatinine is 16.7 and GFR 3. - Renal ultrasound Small kidneys with bilateral renal cortical thinning, Moderate bilateral renal parenchymal scar formation, No hydronephrosis. - Store Management Trainee consulted, appreciate recommendations. Plan: - Avoid nephrotoxic and renally dose medications. - Ordered TB skin test and hepatitis panel (also hepatitis B core antibody and IgM, hepatitis surface antibody) in case patient may require permanent dialysis. - PTH, vitamin D pending. - Continue Lasix 40 mg IV. - Dialysis line placed, hemodialysis today. #Hyperkalemia- resolved. #Hyperphosphatemia. #Nonanion gap metabolic acidosis- resolved. - On admission patient's potassium is 5.5 and bicarb 18.6, likely secondary to acute renal failure. - Patient is given albuterol treatment as well as started on bicarb drip on admission, discontinued. Plan: - Continue to monitor daily labs. - Continue calcium acetate. - Continue Bicitra. #Normocytic anemia. #Anemia of chronic disease. - On admission hemoglobin is 8.3, hematocrit 24.1 and MCV 80. - No signs of active bleeding, Pt denies melena, hematochezia and hematemesis. - This anemia is likely secondary to decreased erythropoetin production in CKD. Plan: - Will continue to monitor daily CBC and transfuse if hemoglobin below 7. #Insulin-dependent type 2 diabetes. - A1c 11.6 on 01/11/20, 6.7% on 03/15/2025. - On admission blood glucose 123. - Patient's home regimen includes 36 units of glargine and glipizide 5 mg. Plan: - Insulin sliding scale. - Insulin glargine on hold. - AC at bedtime Accu-Cheks. - Hypoglycemia protocol in place. #Primary hypertension. - Patient's home medication include lisinopril daily. - Will hold lisinopril in the setting of acute renal failure. Plan: -Continue on amlodipine 10 mg daily. Health Maintenance: Disposition: telemetry. DVT Prophylaxis: Heparin 5000 units SC Q8 hrs to resume at 6 PM. GI Prophylaxis: not indicated. Diet: Renal Diet. Lines: Peripheral lines, dialysis catheter. Code status: Full. Plan of care discussed with attending Dr. Kraus. Rio Pham MD, PGY 2. Disclaimer: This note was dictated by speech recognition. Minor errors in medical field representative may be present due to voice recognition software. Attending Provider Attestation/Addendum I, Ellen Kraus DO, attest that I was physically present for the casiano portions of the service and evaluated the patient with the resident and I reviewed and discussed the case with the resident and agree with the resident's findings and plans of care as documented above Patient seen and evaluated this AM during dialysis. He reports some pain at catheter site, otherwise no other complaints. He denies any shortness of breath. Will continue with dialysis as per nephro. SW to arrange for outpt dialysis. Anticipate DC within next 48-72h.
[2025-03-16] MEDS: HEPARIN SOD INJ 1000 UNIT/ML VIAL 10 ML 3800 UNIT INDWELLCAT (15:10)
[2025-03-16 15:20] LABS: Hepatitis B Core Antibody IgM Non Reactive (Non React)
[2025-03-16] MEDS: ACETAMINOPHEN 325 MG TABLET 650 MG PO (15:41)
[2025-03-16] MEDS: INSULIN LISPRO (AdmeLOG) 1 UNIT/0.01 ML UNIT SC (17:09)
[2025-03-16] MEDS: EPOETIN ALFA INJ 1,000 UNIT/0.05 ML UNIT 10000 UNIT SC (17:10)
[2025-03-16 19:40] LABS: Hepatitis A Antibody IgM Non Reactive (Non React); Hepatitis B Core Antibody IgM Non Reactive (Non React); Hepatitis B Surface Antigen Non Reactive (Non React); Hepatitis C Antibody Non Reactive (Non React)
[2025-03-16] MEDS: HEPARIN SOD INJ 5000 UNIT/ML VIAL SC (21:14)
[2025-03-17] VITALS (24 sets, daily range): BP systolic 106–171; BP diastolic 53–94; PULSE 73–91; RESP 13–98; TEMP 36.3–37.1; O2SAT 92–99; BMI 34.8; BMI 34.6
[2025-03-17] MEDS: ACETAMINOPHEN 325 MG TABLET 650 MG PO ×2 (01:05→08:50)
[2025-03-17] MEDS: HEPARIN SOD INJ 5000 UNIT/ML VIAL SC ×3 (05:31→21:24)
[2025-03-17 06:50] LABS: Basophils % (Auto) 1 % (0-2.5); Eosinophils # (Auto) 0.1 Thou/mm3 (0.0-0.5); Eosinophils % (Auto) 2 % (0-10); Immature Granulocytes % (Auto) 1 % (0-0); Immature Granulocytes Auto 0.04 Thou/mm3 (0.00-0.00); Lymphocytes # (Auto) 1.1 Thou/mm3 (1.0-4.8); Lymphocytes % (Auto) 12 % (10-50); Mean Corpuscular HGB Conc 35.7 g/dl (31.0-37.0); Mean Corpuscular Hemoglobin 27.3 pg (25.0-35.0); Mean Corpuscular Volume 77 fL (80-100); Monocytes % (Auto) 12 % (0-12); Neutrophils # (Auto) 6.5 Thou/mm3 (1.8-7.7); Neutrophils % (Auto) 73 % (37-80); Nucleated Red Blood Cell % 0 /100 WBC (0); Platelet Count 150 Thou/mm3 (140-440); RDW Standard Deviation 34.1 fL (35.1-43.9); Red Blood Count 2.56 Miln/mm3 (4.50-5.90); White Blood Count 8.9 Thou/mm3 (3.8-10.6)
[2025-03-17 07:00] LABS: Partial Thromboplastin Time 31.5 Seconds (22.0-36.0); Prothrombin Time 11.1 Seconds (9.0-12.2)
[2025-03-17 07:21] LABS: Alanine Aminotransferase 8 U/L (10-49); Albumin, Serum 3.1 gm/dL (3.5-5.0); Albumin/Globulin Ratio 1.2 (1.2-2.2); Alkaline Phosphatase 89 U/L (46-116); Anion Gap 8 (7-16); Aspartate Amino Transferase < 10 U/L (0-34); BUN/Creatinine Ratio 6 Ratio (12-20); Bilirubin,Total 0.4 mg/dL (0.3-1.2); Blood Urea Nitrogen 73 mg/dL (9-23); Calcium 8.3 mg/dL (8.3-10.6); Carbon Dioxide 29.1 mMol/L (20.0-31.0); Chloride 99 mMol/L (98-107); Globulin 2.6 gm/dL (2.3-3.5); Glucose 158 mg/dL (74-106); Magnesium 2.1 mg/dL (1.6-2.6); Osmolality,Calculated 296 (275-295); Phosphorous 7.8 mg/dL (2.4-5.1); Potassium 4.1 mMol/L (3.4-5.1); Sodium 136 mMol/L (136-145); Total Protein 5.7 gm/dL (5.7-8.2); eGFR 4 See Note
[2025-03-17] MEDS: ALBUTEROL/IPRATROPIUM (Duoneb) RT SOL 3 ML NEBU INH (07:26)
[2025-03-17 07:37] LABS: Hematocrit 19.6 % (41.0-53.0)
[2025-03-17] MEDS: INSULIN LISPRO (AdmeLOG) 1 UNIT/0.01 ML UNIT SC ×3 (07:56→17:08)
[2025-03-17] MEDS: CALCIUM ACETATE 667 MG TABLET 1334 MG PO ×3 (07:56→17:08)
--- NOTE | 2025-03-17 09:45 | ESPR_ITS ---
Documentation for date of: 03/17/25 Subjective Subjective Interval history: Mr. Chase is a 49-year-old [place] gentle male who is well-known to me from my CKD clinic for the last few years has extensive past medical history of hypertension for more than 20 years, diabetes for more than 20 years, PVD with left BKA, dyslipidemia, renal osteodystrophy/secondary hyperparathyroidism, anemia of chronic kidney disease was last seen by me few months ago and missed a couple of appointments. Patient apparently has CKD stage V for the last 1-1/2-year and has been declining dialysis. [place] referrals to transplant center he never showed up or made a call to the transplant center. Patient presented to the emergency department with shortness of breath cough which is going on for the last 1 to 2 weeks. Patient denies any fever or chills. Did have flulike symptoms. No recent travel. He is still making urine. In the emergency department blood pressure 174/84, heart rate 76. O2 sat 98%. Labs showed hemoglobin 8.3, potassium 5.5, bicarbonate 18.6, BUN 95, creatinine 16.7, GFR 3, urinalysis showing significant proteinuria, glucosuria, blood. Chest x-ray negative for pneumonia. ER provider called me. Recommended medical management for hyperkalemia. Admitted to medical team. Renal consultation requested for hyperkalemia, CKD stage 5 and need for dialysis. Home medications included Janumet, Basaglar, amlodipine (seems incomplete as he is missing few medications) 03/15/2025 patient currently seen in telemetry. Still short of breath. Blood sugar 99. Blood pressure 156/91, heart rate 94. Hemoglobin 7.2. Sodium 141, potassium 4.6, bicarb 22.4, BUN 94, creatinine 16.8, A1c 6.7, phosphorus 11, magnesium 2.2, ferritin 1226, LFTs normal, albumin 3.2, LDL 92, TSH 1.92, urine protein/creatinine. 03/16/2025 Examined at bedside on tele. Doing well today. Denies fever, chills, headaches, chest pain, sob, cough, GI or urinary symptoms. Renal function poor, CR 16.8, BUN 98, EGFR 3, Hgb 7.3, WBC 8.1, PLT 194. US showed bilateral small kidneys, cortical thinning and parenchymal scaring. Discussed HD with patient and at bedside. Will proceed with perm-cath. Pending TB, HIV, Hep panel, PTH, vit-D. HEPARIN on hold, continue SCDs for now. 03/17/2025 examined at bedside. Tolerated hemodialysis well yesterday. Denies new symptoms or worsening of symptoms. Tolerating oral intake without nausea or vomiting. Renal function showing CR 13.0, BUN 73, GFR 4. Reports making small amount of urine today. Phosphorus 7.8. Sodium and potassium WNL. Hgb 7.0, MCV 77, PLT 150. UA culture still pending. Exam Vital Signs Temp Pulse Resp BP Pulse Ox O2 Del Method O2 Flow Rate 98.7 F 86 18 114/94 H 99 Nasal Cannula 2 03/17/25 08:05 03/17/25 09:45 03/17/25 08:05 03/17/25 09:45 03/17/25 08:05 03/17/25 08:00 03/17/25 08:05 FiO2 21 03/17/25 08:00 Narrative Exam GENERAL APPEARANCE: Patient seems to be comfortable, adequately hydrated and nourished. Facial puffiness noted HEENT: EOMI, PERRLA NECK: Neck supple, no JVD or bruit CARDIOVASCULAR: Heart regular, no murmurs LUNGS/CHEST: Fine crackles bilaterally with some wheezing ABDOMEN: Soft, nontender, nondistended. No masses. Normal bowel sounds. EXTREMITIES: No edema, clubbing or cyanosis. SKIN: Skin exam normal without any rashes. Right IJ cath noted MUSCULOSKELETAL: Left BKA PSYCHIATRIC: Normal mood, affect LYMPHATICS: No lymphadenopathy noted NEUROLOGICAL : No neurological deficits Objective Labs 03/17/25 06:05 03/17/25 06:05 Labs: Laboratory Results - last 24 hr 03/14/25 03/16/25 03/17/25 12:03 05:27 06:05 WBC 8.9 RBC 2.56 L Hgb 7.0 L Hct 19.6 L* MCV 77 L MCH 27.3 MCHC 35.7 RDW Std Deviation 34.1 L Plt Count 150 D Neut % (Auto) 73 Lymph % (Auto) 12 [place] % (Auto) 12 Eos % (Auto) 2 Baso % (Auto) 1 Neut # (Auto) 6.5 Lymph # (Auto) 1.1 [place] # (Auto) 1.0 H Eos # (Auto) 0.1 Baso # (Auto) 0.0 Immature Gran # (Auto) 0.04 H Absolute Nucleated RBC 0.00 Immature Gran % 1 H Nucleated RBC % 0 PT 11.1 INR 1.0 APTT 31.5 Sodium 136 Potassium 4.1 Chloride 99 Carbon Dioxide 29.1 Anion Gap 8 BUN 73 H Creatinine 13.0 H* D Estim Creat Clear Calc 7.0 L eGFR 4 L* BUN/Creatinine Ratio 6 L Glucose 158 H D Calculated Osmolality 296 H Calcium 8.3 Corrected Calcium 9.0 Phosphorus 7.8 H Magnesium 2.1 Total Bilirubin 0.4 AST < 10 ALT 8 L Alkaline Phosphatase 89 Total Protein 5.7 Albumin 3.1 L Globulin 2.6 Albumin/Globulin Ratio 1.2 25-OH Vitamin D Total 10.0 PTH Intact 806.0 H Hepatitis A IgM Ab Non Reactive Hep Bs Antigen Non Reactive Hep Bs Antibody Reactive (Immune) Hep B Core IgM Ab Non Reactive Non Reactive Hepatitis C Antibody Non Reactive HIV 1&2 Antibody Rapid Non-Reactive Quality Measures Quality Measures VTE prophylaxis Assessment & Plan Assessment Current Active Medications: Generic Name Dose Route Start Last Admin Trade Name Freq PRN Reason Stop Dose Admin Acetaminophen 650 mg 03/14/25 15:32 03/17/25 08:50 Acetaminophen 325 Mg Tablet PO 04/13/25 15:31 650 mg Q6H PRN Administration Fever >101.5 Albuterol/Ipratropium 3 ml 03/15/25 00:35 03/17/25 07:26 Albuterol/Ipratropium (Duoneb) Rt Caitlin 3 Ml Nebu INH 04/14/25 00:34 3 ml Q2HR PRN Administration SHORTNESS OF BREATH OR WHEEZE Amlodipine Besylate 5 mg 03/15/25 09:00 03/16/25 08:20 Amlodipine Besylate 5 Mg Tablet PO 04/14/25 08:59 5 mg QDAY RAYSA Administration Calcium Acetate 1,334 mg 03/15/25 12:00 03/17/25 07:56 Calcium Acetate 667 Mg Tablet PO 04/14/25 11:59 1,334 mg TIDWM RAYSA Administration Citric Acid/Sodium Citrate 30 ml 03/14/25 21:00 03/16/25 21:14 Citric Acid/Sodium Citr 15 Ml Udc (Bicitra) PO 04/13/25 20:59 30 ml BID RAYSA Administration Dextrose 25 ml 03/14/25 15:49 Dextrose 50%-Water Inj 50 Ml Syringe IV 04/13/25 15:48 Q15MIN PRN BG 50-70 responsive npo pt Dextrose 50 ml 03/14/25 15:49 Dextrose 50%-Water Inj 50 Ml Syringe IV 04/13/25 15:48 Q15MIN PRN BG <50 OR BG <70 & pt unresponsive Epoetin Nba 10,000 unit 03/17/25 10:30 Epoetin Nba-Epbx Inj 10,000 Unit/Ml Vial (Esrd) SC 03/17/25 10:31 X1 ONE Furosemide 40 mg 03/15/25 12:00 03/16/25 08:19 Furosemide Inj 10 Mg/Ml 4ml Vial IVP 04/14/25 11:59 40 mg QDAY ARYSA Administration Glucagon 1 mg 03/14/25 15:49 Glucagon Inj 1 Mg Vial IM Q15MIN PRN BG <70, and no IV access Heparin Sodium (Porcine) 5,000 unit 03/14/25 22:00 03/17/25 05:31 Heparin Sod Inj 5000 Unit/Ml Vial SC 03/28/25 21:59 5,000 unit Q8HR RAYSA Administration Heparin Sodium (Porcine) 3,800 unit 03/16/25 14:51 03/16/25 15:10 Heparin Sod Inj 1000 Unit/Ml Vial 10 Ml INDWELLCAT 03/30/25 14:50 3,800 unit X1 PRN Administration DIALYSIS Insulin Glargine 10 unit 03/17/25 09:00 Insulin Glargine (Lantus) 5 Unit/0.05 Ml (Per 5 Units) [place] 04/16/25 08:59 QDAY RAYSA Insulin Human Lispro 0 unit 03/14/25 17:00 03/17/25 07:56 Insulin Lispro (Admelog) 1 Unit/0.01 Ml Unit SC 04/13/25 16:59 2 unit AC RAYSA Administration Protocol Ondansetron HCl 4 mg 03/14/25 15:32 Ondansetron Inj 2 Mg/Ml Inj 2 Ml IV 04/13/25 15:31 Q6H PRN NAUSEA OR VOMITING Protocol Sodium Chloride 3 ml 03/14/25 14:22 03/14/25 14:46 Sodium Chloride Rt Caitlin 0.9% 3 Ml Nebu INH 04/13/25 14:21 3 ml PRN PRN Administration SOLN Plan Patient has advanced CKD stage V secondary to diabetic/hypertensive nephrosclerosis. He has been refusing dialysis for the last currently with the sequelae of azotemia, anemia, renal osteodystrophy, hyperphosphatemia, hyperParathyroidism--patient seems to be end-stage kidney disease needing dialysis. Had a long conversation with the patient regarding the need for dialysis. He finally agreed. Will plan for dialysis on Sunday via PermCath. No need for urgent dialysis. Will do medical management for hyperkalemia and add bicitra for metabolic acidosis, binders for hyperphosphatemia, Retacrit for anemia. Report feeling dizzy after HD yesterday. Currently asymptomatic. Plan for HD tomorrow without fluid removal. ESRD new to HD Hyperphosphatemia Secondary hyper-parathyroidism 2/2 ESRD Admission CR 16.8, BUN 98, EGFR 3. Potassium 4.5. Phos 10.4 Right IJ cath inserted, hemodialysis yesterday, tolerated well PTH 806, VITAMIN D 10. HD tomorrow, without fluid removal. Anemia in CKD Chronic, Hgb 7.0 today ? EPO with HD Hyperkalemia (resolved) Sodium WNL today ? Daily labs #Nonanion gap metabolic acidosis- resolved #Normocytic anemia #Insulin-dependent type 2 diabetes #Primary hypertension ? Managed by primary team Thank you for the opportunity to participate in the patient's care. Case was discussed with attending, Dr. Gipson. Venessa Carmona DO PGYI Attending Provider Attestation/Addendum Patient seen and examined with resident physician Dr. Clifford. Note reviewed, agree with findings and recommendations. Patient has advanced CKD stage V secondary to diabetic/hypertensive nephrosclerosis now progressed to ESRD. . He has been refusing dialysis for the last 2 yrs . currently with the sequelae of azotemia, anemia, renal osteodystrophy, hyperphosphatemia, hyperParathyroidism--patient agreed for dialysis. S/p permacath. Patient currently seen on dialysis. Tolerating dialysis without any problems. Hemodialysis for 2.5 hours, 2K, ultrafiltration 1 L, Epogen 6000, no heparin ordered. Plan of care discussed with the dialysis nurse. Please see dialysis flowsheet for further details. ppd, hep panel, outpatient dialysis ordered Next dialysis scheduled for tomorrow. Will switch amlodipine to losartan for proteinuria.
--- NOTE | 2025-03-17 10:19 | PC.SS ---
Addendum entered by Hayley Breen 03/17/25 11:09: SS follow up note; SS attempted to contact [employer]ICIA Enriquez to check status on Insurance auth, SS left Voicemail with contact number. Original Note: SS follow up note; SS sent TB test results, Dialysis session and Cath placement progress notes to ELICIA Enriquez.
[2025-03-17] MEDS: HEPARIN SOD INJ 1000 UNIT/ML VIAL 10 ML 3800 UNIT INDWELLCAT (11:18)
--- NOTE | 2025-03-17 11:44 | ECHO_ITS ---
Transthoracic Echo Report Ht (in): 64 Wt (lb): 202 Exam Location: Echo Lab Status: Inpatient Coordinate Measuring Machine Operator: Tosha Leonard Indications: Procedure Performed: BP: 150 / 80 HR: 85 Rhythm: Sinus Technical Quality: Technically difficult study MEASUREMENTS (Male / Female) Normal Values 2D ECHO LV Diastolic Diameter PLAX 4.4 cm 4.2 - 5.9 / 3.9 - 5.3 cm LV Systolic Diameter PLAX 3.1 cm IVS Diastolic Thickness 1.1 cm 0.6 - 1.0 / 0.6 - 0.9 cm LVPW Diastolic Thickness 1.1 cm 0.6 - 1.0 / 0.6 - 0.9 cm LV Relative Wall Thickness 0.5 LVOT Diameter 2.1 cm Aortic Root Diameter 3.0 cm LA Volume Index 18.8 cm?/m? 16 - 28 cm?/m? Ascending Aorta Diameter 2.8 cm M-MODE AV Cusp Separation MM 1.9 cm DOPPLER AV Peak Velocity 146.0 cm/s AV Peak Gradient 8.5 mmHg AV Mean Gradient 3.0 mmHg AV Velocity Time Integral 27.6 cm LVOT Peak Velocity 87.2 cm/s LVOT Peak Gradient 3.0 mmHg LVOT Velocity Time Integral 21.7 cm LVOT Cardiac Index 3081.9 cm?/min?m? AV Area Cont Eq vti 2.7 cm? AV Area Cont Eq pk 2.1 cm? MV Area PHT 4.4 cm? Mitral E Point Velocity 81.5 cm/s Mitral A Point Velocity 99.4 cm/s Mitral E to A Ratio 0.8 LV E' Lateral Velocity 9.3 cm/s Mitral E to LV E' Lateral Ratio 8.8 LV E' Septal Velocity 7.9 cm/s Mitral E to LV E' Septal Ratio 10.3 PV Peak Velocity 133.0 cm/s PV Peak Gradient 7.1 mmHg FINDINGS Left Ventricle Normal left ventricular size, wall thickness, systolic function with no obvious regional wall motion abnormalities. Normal left ventricular diastolic filling pattern for age. The ejection fraction is visually estimated at 55-60%. There is grade I diastolic dysfunction. Right Ventricle The right ventricle is normal in size and systolic function. Left Atrium The left atrium is normal by two-dimensional, color flow and Doppler imaging with no structural abnormalities, no thrombus formation present. Right Atrium The right atrium is normal by two-dimensional imaging, color flow and Doppler imaging with no structural abnormalities, no thrombus formation present. Atrial Septum The interatrial septum appears normal with no evidence of a shunt. Aorta The aorta is normal by two-dimensional, color flow and Doppler interrogation. Mitral Valve The mitral valve is normal by two-dimensional, color flow and Doppler interrogation. Trace mitral regurgitation. Aortic Valve The aortic valve is trileaflet and normal by two-dimensional, color flow and Doppler interrogation. There is no significant aortic valve regurgitation. Tricuspid Valve The tricuspid valve is normal by two-dimensional, color flow and Doppler interrogation. There is trace tricuspid valve regurgitation. Pulmonic Valve The pulmonic valve is not well visualized. There is no significant pulmonic valve regurgitation. Vessels The pulmonary artery appears normal. The inferior vena cava pulmonary and hepatic veins appear normal. Pericardium The pericardium is normal by two-dimensional imaging. There is no significant pericardial effusion. CONCLUSIONS Indication: CHF Normal LV size and function. Estimated EF 55-60% Grade I diastolic dysfunction. The RV is normal in size and systolic function. Trace MR and TR. Trent Griffin (Electronically Signed) Final Date: 19 March 2025 06:13
[2025-03-17] MEDS: CITRIC ACID/SODIUM CITR 15 ML UDC (BICITRA) 30 ML PO (12:07)
[2025-03-17] MEDS: FUROSEMIDE INJ 10 MG/ML 4ML VIAL 40 MG IVP (12:08)
[2025-03-17] MEDS: amLODIPine BESYLATE 5 MG TABLET PO (12:10)
[2025-03-17] MEDS: INSULIN GLARGINE (Lantus) 5 UNIT/0.05 ML (PER 5 UNITS) 10 UNIT SC (12:11)
[2025-03-17] MEDS: SEVELAMER CARBONATE 800 MG TABLET PO (12:27)
[2025-03-17] MEDS: EPOETIN ALFA INJ 1,000 UNIT/0.05 ML UNIT 10000 UNIT SC (13:40)
--- NOTE | 2025-03-17 14:43 | PC.SS ---
SS follow up note; SS contacted Hodan from [facility] to check status on Insurance auth, She informed SS that at the time Insurance verification is still pending and that she sent updated clinical notes to cooperate office.
--- NOTE | 2025-03-17 20:10 | ESPR_ITS ---
<Statement entered by Ghassan Durant MD - 03/23/25 13:20> I reviewed above note and agree with findings and plans. I have also personally examined the patient with medicine team and went over assessment and plan with medical team including it intern and resident physician. <Statement entered by Rio Pham MD - 03/18/25 15:16> Senior Resident Attestation: I supervised/discussed management plan with it intern physician Dr. Meade, and was involved in the care of this patient. I personally saw and examined the patient and discussed the assessment and plan with the entire medicine team, including my attending. I agree with the assessment and plan as documented. Patient underwent second hemodialysis session today. His condition significantly improved since admission. Will continue current management and monitor patient, he will be discharged after his third dialysis session. Patient's care was discussed with attending physician, Dr. Durant. Rio Pham MD PGY-2. Documentation for date of: 03/17/25 Subjective Subjective Interval history: No acute overnight events reported. Patient seen and examined at bedside this morning patient is undergoing dialysis this morning patient has agreed and underwent tunneled dialysis catheter placed on 03/16. Patient has no other complaints other than a headache likely because patient has not had any breakfast. Vitals are stable and labs are significant for hemoglobin 7.0, hematocrit 19.6, MCV 77, creatinine 13.0, GFR 4 and phosphorus 7.8, sevalamer is given x 1. Patient denies any dizziness, chest pain, palpitations or abdominal pain. Exam Vital Signs Temp Pulse Resp BP Pulse Ox O2 Del Method O2 Flow Rate 98.0 F 85 13 150/85 H 95 Nasal Cannula 2 03/17/25 16:00 03/17/25 16:00 03/17/25 16:00 03/17/25 16:00 03/17/25 16:00 03/17/25 16:00 03/17/25 16:00 FiO2 21 03/17/25 16:00 Narrative Exam GENERAL: A&Ox3 . Awake, cooperative middle age male NEURO: no focal neurological deficits noted HEENT: Atraumatic, Normocephalic. mucous membranes moist. Eyes open, symmetrical, & clear, Right IJ dialysis cath present HEART: Normal Heart Sounds LUNGS: lung lung sounds heard bilaterally SKIN: No Rash or ecchymoses EXTREMITIES: LEFT BKA, No edema or tenderness, able to move all 4 extremities (inlcuding the L. BKA) , diminished pedal pulses in right foot Objective Labs 03/17/25 06:05 03/17/25 06:05 Labs: Laboratory Results - last 24 hr 03/17/25 06:05 WBC 8.9 RBC 2.56 L Hgb 7.0 L Hct 19.6 L* MCV 77 L MCH 27.3 MCHC 35.7 RDW Std Deviation 34.1 L Plt Count 150 D Neut % (Auto) 73 Lymph % (Auto) 12 [place] % (Auto) 12 Eos % (Auto) 2 Baso % (Auto) 1 Neut # (Auto) 6.5 Lymph # (Auto) 1.1 [place] # (Auto) 1.0 H Eos # (Auto) 0.1 Baso # (Auto) 0.0 Immature Gran # (Auto) 0.04 H Absolute Nucleated RBC 0.00 Immature Gran % 1 H Nucleated RBC % 0 PT 11.1 INR 1.0 APTT 31.5 Sodium 136 Potassium 4.1 Chloride 99 Carbon Dioxide 29.1 Anion Gap 8 BUN 73 H Creatinine 13.0 H* D Estim Creat Clear Calc 7.0 L eGFR 4 L* BUN/Creatinine Ratio 6 L Glucose 158 H D Calculated Osmolality 296 H Calcium 8.3 Corrected Calcium 9.0 Phosphorus 7.8 H Magnesium 2.1 Total Bilirubin 0.4 AST < 10 ALT 8 L Alkaline Phosphatase 89 Total Protein 5.7 Albumin 3.1 L Globulin 2.6 Albumin/Globulin Ratio 1.2 Quality Measures Quality Measures VTE prophylaxis Assessment & Plan Assessment Current Active Medications: Generic Name Dose Route Start Last Admin Trade Name Freq PRN Reason Stop Dose Admin Acetaminophen 650 mg 03/14/25 15:32 03/17/25 08:50 Acetaminophen 325 Mg Tablet PO 04/13/25 15:31 650 mg Q6H PRN Administration Fever >101.5 Albuterol/Ipratropium 3 ml 03/15/25 00:35 03/17/25 07:26 Albuterol/Ipratropium (Duoneb) Rt Caitlin 3 Ml Nebu INH 04/14/25 00:34 3 ml Q2HR PRN Administration SHORTNESS OF BREATH OR WHEEZE Calcitriol 1 mcg 03/17/25 19:30 Calcitriol 0.25 Mcg Capsule PO 04/16/25 19:29 QDAY RAYSA Calcium Acetate 1,334 mg 03/15/25 12:00 03/17/25 17:08 Calcium Acetate 667 Mg Tablet PO 04/14/25 11:59 1,334 mg TIDWM RAYSA Administration Dextrose 25 ml 03/14/25 15:49 Dextrose 50%-Water Inj 50 Ml Syringe IV 04/13/25 15:48 Q15MIN PRN BG 50-70 responsive npo pt Dextrose 50 ml 03/14/25 15:49 Dextrose 50%-Water Inj 50 Ml Syringe IV 04/13/25 15:48 Q15MIN PRN BG <50 OR BG <70 & pt unresponsive Glucagon 1 mg 03/14/25 15:49 Glucagon Inj 1 Mg Vial IM Q15MIN PRN BG <70, and no IV access Heparin Sodium (Porcine) 5,000 unit 03/14/25 22:00 03/17/25 13:40 Heparin Sod Inj 5000 Unit/Ml Vial SC 03/28/25 21:59 5,000 unit Q8HR RAYSA Administration Heparin Sodium (Porcine) 3,800 unit 03/16/25 14:51 03/17/25 11:18 Heparin Sod Inj 1000 Unit/Ml Vial 10 Ml [facility] 03/30/25 14:50 3,800 unit X1 PRN Administration DIALYSIS Insulin Glargine 10 unit 03/17/25 09:00 03/17/25 12:11 Insulin Glargine (Lantus) 5 Unit/0.05 Ml (Per 5 Units) SC 04/16/25 08:59 10 unit QDAY RAYSA Administration Insulin Human Lispro 0 unit 03/14/25 17:00 03/17/25 17:08 Insulin Lispro (Admelog) 1 Unit/0.01 Ml Unit SC 04/13/25 16:59 3 unit AC RAYSA Administration Protocol Losartan Potassium 50 mg 03/17/25 19:30 Losartan Potassium 25 Mg Tablet PO 04/16/25 19:29 QDAY RAYSA Ondansetron HCl 4 mg 03/14/25 15:32 Ondansetron Inj 2 Mg/Ml Inj 2 Ml IV 04/13/25 15:31 Q6H PRN NAUSEA OR VOMITING Protocol Sodium Chloride 3 ml 03/14/25 14:22 03/14/25 14:46 Sodium Chloride Rt Caitlin 0.9% 3 Ml Nebu INH 05/19/25 14:21 3 ml PRN PRN Administration SOLN Plan Mr. Chase is a 49-year-old male with past medical history significant for hypertension and insulin-dependent type 2 diabetes presented to the ED accompanied by his complaining of shortness of breath and cough for the past 1 week. Pt is admitted for management of acute renal failure. #Acute renal failure, in the setting of #CKD. #ESRD on HD started on 03/16 - Patient has baseline creatinine in 2019 was 1.4, no records of creatinine in between 2019 and 2024. - On admission patient's creatinine is 16.7 and GFR 3. - Renal ultrasound Small kidneys with bilateral renal cortical thinning, Moderate bilateral renal parenchymal scar formation, No hydronephrosis. - Product Management Manager consulted, appreciate recommendations. Plan: - Avoid nephrotoxic and renally dose medications. - Ordered TB skin test and hepatitis panel (also hepatitis B core antibody and IgM, hepatitis surface antibody) in case patient may require permanent dialysis. - PTH, vitamin D pending. - Continue Lasix 40 mg IV. - Dialysis catheter placed on 03/17 -Pt underwent dialysis on 03/16. 03/17 #Hyperkalemia- resolved. #Hyperphosphatemia. #Nonanion gap metabolic acidosis- resolved. - On admission patient's potassium is 5.5 and bicarb 18.6, likely secondary to acute renal failure. - Patient is given albuterol treatment as well as started on bicarb drip on admission, discontinued. Plan: - Continue to monitor daily labs. - Continue calcium acetate. - Continue Bicitra. #Normocytic anemia. #Anemia of chronic disease. - On admission hemoglobin is 8.3, hematocrit 24.1 and MCV 80. - No signs of active bleeding, Pt denies melena, hematochezia and hematemesis. - This anemia is likely secondary to decreased erythropoetin production in CKD. Plan: - Will continue to monitor daily CBC and transfuse if hemoglobin below 7. #Insulin-dependent type 2 diabetes. - A1c 11.6 on 01/11/20, 6.7% on 03/15/2025. - On admission blood glucose 123. - Patient's home regimen includes 36 units of glargine and glipizide 5 mg. Plan: - Insulin sliding scale. - Insulin glargine on hold. - AC at bedtime Accu-Cheks. - Hypoglycemia protocol in place. #Primary hypertension. - Patient's home medication include lisinopril daily. - Will hold lisinopril in the setting of acute renal failure. Plan: -Continue on amlodipine 10 mg daily. Health Maintenance: Disposition: telemetry. DVT Prophylaxis: Heparin 5000 units SC Q8 hrs to resume at 6 PM. GI Prophylaxis: not indicated. Diet: Renal Diet. Lines: Peripheral lines, dialysis catheter. Code status: Full Assessment and plan discussed with my senior resident Dr. Pham & attending physician Dr. Carleen Meade (PGY-1)- Internal medicine resident
[2025-03-17] MEDS: CALCITRIOL 0.25 mCg CAPSULE 1 MCG PO (20:21)
[2025-03-17] MEDS: LOSARTAN POTASSIUM 25 MG TABLET 50 MG PO (20:21)
[2025-03-18] VITALS (7 sets, daily range): BP systolic 112–156; BP diastolic 79–91; PULSE 78–98; RESP 15–21; TEMP 36.6–36.9; O2SAT 93–98
--- NOTE | 2025-03-18 05:38 | PC.NURSE ---
Per MD Allred, wait until morning labs results before giving 0600 heparin dose
--- NOTE | 2025-03-18 05:43 | PC.NURSE ---
Per MD Allred ok to hold heparin 0600 dose. He wants to wait for morning hgb. He will let dayteam know
[2025-03-18 06:49] LABS: Basophils % (Auto) 0 % (0-2.5); Eosinophils # (Auto) 0.2 Thou/mm3 (0.0-0.5); Eosinophils % (Auto) 2 % (0-10); Immature Granulocytes % (Auto) 1 % (0-0); Immature Granulocytes Auto 0.09 Thou/mm3 (0.00-0.00); Lymphocytes # (Auto) 1.5 Thou/mm3 (1.0-4.8); Lymphocytes % (Auto) 14 % (10-50); Mean Corpuscular HGB Conc 34.9 g/dl (31.0-37.0); Mean Corpuscular Hemoglobin 27.7 pg (25.0-35.0); Mean Corpuscular Volume 80 fL (80-100); Monocytes # (Auto) 1.1 Thou/mm3 (0.0-0.8); Monocytes % (Auto) 10 % (0-12); Neutrophils % (Auto) 73 % (37-80); Nucleated Red Blood Cell # 0.06 Thou/mm3 (0.00-0.00); Nucleated Red Blood Cell % 1 /100 WBC (0); Platelet Count 164 Thou/mm3 (140-440); RDW Standard Deviation 35.1 fL (35.1-43.9); Red Blood Count 2.74 Miln/mm3 (4.50-5.90); White Blood Count 10.9 Thou/mm3 (3.8-10.6)
[2025-03-18 06:55] LABS: Hemoglobin 7.6 g/dL (13.5-16.0)
[2025-03-18] MEDS: CALCIUM ACETATE 667 MG TABLET 1334 MG PO ×2 (07:30→11:57)
[2025-03-18 07:34] LABS: Alanine Aminotransferase 13 U/L (10-49); Albumin, Serum 3.4 gm/dL (3.5-5.0); Albumin/Globulin Ratio 1.3 (1.2-2.2); Alkaline Phosphatase 98 U/L (46-116); Anion Gap 10 (7-16); Aspartate Amino Transferase 17 U/L (0-34); BUN/Creatinine Ratio 5 Ratio (12-20); Bilirubin,Total 0.4 mg/dL (0.3-1.2); Blood Urea Nitrogen 51 mg/dL (9-23); Calcium (Corrected) 9.5 mg/dL (8.5-10.1); Carbon Dioxide 29.1 mMol/L (20.0-31.0); Chloride 97 mMol/L (98-107); Estimated Creatinine Clearance 9.2 mL/min (>60); Globulin 2.7 gm/dL (2.3-3.5); Glucose 153 mg/dL (74-106); Osmolality,Calculated 288 (275-295); Potassium 4.2 mMol/L (3.4-5.1); Sodium 136 mMol/L (136-145); Total Protein 6.1 gm/dL (5.7-8.2); eGFR 6 See Note
[2025-03-18 07:39] LABS: Creatinine (Component) 10.1 mg/dL (0.6-1.3)
[2025-03-18] MEDS: INSULIN GLARGINE (Lantus) 5 UNIT/0.05 ML (PER 5 UNITS) 10 UNIT SC (08:43)
[2025-03-18] MEDS: CALCITRIOL 0.25 mCg CAPSULE 1 MCG PO (08:43)
[2025-03-18] MEDS: LOSARTAN POTASSIUM 25 MG TABLET 50 MG PO (08:44)
--- NOTE | 2025-03-18 08:49 | ESPR_ITS ---
Documentation for date of: 03/18/25 Subjective Subjective Interval history: Mr. Chase is a 49-year-old [place] gentle male who is well-known to me from my CKD clinic for the last few years has extensive past medical history of hypertension for more than 20 years, diabetes for more than 20 years, PVD with left BKA, dyslipidemia, renal osteodystrophy/secondary hyperparathyroidism, anemia of chronic kidney disease was last seen by me few months ago and missed a couple of appointments. Patient apparently has CKD stage V for the last 1-1/2-year and has been declining dialysis. [place] referrals to transplant center he never showed up or made a call to the transplant center. Patient presented to the emergency department with shortness of breath cough which is going on for the last 1 to 2 weeks. Patient denies any fever or chills. Did have flulike symptoms. No recent travel. He is still making urine. In the emergency department blood pressure 174/84, heart rate 76. O2 sat 98%. Labs showed hemoglobin 8.3, potassium 5.5, bicarbonate 18.6, BUN 95, creatinine 16.7, GFR 3, urinalysis showing significant proteinuria, glucosuria, blood. Chest x-ray negative for pneumonia. ER provider called me. Recommended medical management for hyperkalemia. Admitted to medical team. Renal consultation requested for hyperkalemia, CKD stage 5 and need for dialysis. Home medications included Janumet, Basaglar, amlodipine (seems incomplete as he is missing few medications) 03/15/2025 patient currently seen in telemetry. Still short of breath. Blood sugar 99. Blood pressure 156/91, heart rate 94. Hemoglobin 7.2. Sodium 141, potassium 4.6, bicarb 22.4, BUN 94, creatinine 16.8, A1c 6.7, phosphorus 11, magnesium 2.2, ferritin 1226, LFTs normal, albumin 3.2, LDL 92, TSH 1.92, urine protein/creatinine. 03/16/2025 Examined at bedside on tele. Doing well today. Denies fever, chills, headaches, chest pain, sob, cough, GI or urinary symptoms. Renal function poor, CR 16.8, BUN 98, EGFR 3, Hgb 7.3, WBC 8.1, PLT 194. US showed bilateral small kidneys, cortical thinning and parenchymal scaring. Discussed HD with patient and at bedside. Will proceed with perm-cath. Pending TB, HIV, Hep panel, PTH, vit-D. HEPARIN on hold, continue SCDs for now. 03/17/2025 examined at bedside. Tolerated hemodialysis well yesterday. Denies new symptoms or worsening of symptoms. Tolerating oral intake without nausea or vomiting. Renal function showing CR 13.0, BUN 73, GFR 4. Reports making small amount of urine today. Phosphorus 7.8. Sodium and potassium WNL. Hgb 7.0, MCV 77, PLT 150. UA culture still pending. 03/18/2025 Patient seen and examined in telemetry today. Patient received another session of HD yesterday removing 1.5L of fluid. We will hold off dialysis today. eGFR is 6 today. Changed amlodipine to losartan for renal protection and started calcitriol. Exam Vital Signs Temp Pulse Resp BP Pulse Ox O2 Del Method O2 Flow Rate 97.8 F 84 20 156/85 H 97 Nasal Cannula 2 03/18/25 04:00 03/18/25 08:44 03/18/25 07:53 03/18/25 08:44 03/18/25 07:53 03/18/25 04:00 03/18/25 07:53 FiO2 21 03/17/25 16:00 Narrative Exam Constitutional: Well nourished and in no acute distress CVS: RRR, S1 and S2 present, no murmurs, rubs or gallops . RESP: CTAB, no SOB, no rales, rhonchi or wheezing. No respiratory Distress GI: Normal BS, Nontender/Nondistended. MSK: Left BKA Skin: Warm to touch, Dry. No rashes or lesions. No hematomas Neuro: wallpaper hanger helper II-XII grossly intact. Sensation grossly intact. Psych: (AAO) x3 . Appropriate mood and affect. Objective Labs 03/18/25 06:00 03/18/25 06:00 Labs: Laboratory Results - last 24 hr 03/18/25 06:00 WBC 10.9 H RBC 2.74 L Hgb 7.6 L Hct 22.0 L MCV 80 MCH 27.7 MCHC 34.9 RDW Std Deviation 35.1 Plt Count 164 Neut % (Auto) 73 Lymph % (Auto) 14 [place] % (Auto) 10 Eos % (Auto) 2 Baso % (Auto) 0 Neut # (Auto) 8.0 H Lymph # (Auto) 1.5 [place] # (Auto) 1.1 H Eos # (Auto) 0.2 Baso # (Auto) 0.0 Immature Gran # (Auto) 0.09 H Absolute Nucleated RBC 0.06 H Immature Gran % 1 H Nucleated RBC % 1 H Sodium 136 Potassium 4.2 Chloride 97 L Carbon Dioxide 29.1 Anion Gap 10 BUN 51 H Creatinine 10.1 H* D Estim Creat Clear Calc 9.2 L eGFR 6 L* BUN/Creatinine Ratio 5 L Glucose 153 H Calculated Osmolality 288 Calcium 9.0 Corrected Calcium 9.5 Total Bilirubin 0.4 AST 17 ALT 13 Alkaline Phosphatase 98 Total Protein 6.1 Albumin 3.4 L Globulin 2.7 Albumin/Globulin Ratio 1.3 Quality Measures Quality Measures VTE prophylaxis Assessment & Plan Assessment Current Active Medications: Generic Name Dose Route Start Last Admin Trade Name Freq PRN Reason Stop Dose Admin Acetaminophen 650 mg 03/14/25 15:32 03/17/25 08:50 Acetaminophen 325 Mg Tablet PO 04/13/25 15:31 650 mg Q6H PRN Administration Fever >101.5 Albuterol/Ipratropium 3 ml 03/15/25 00:35 03/17/25 07:26 Albuterol/Ipratropium (Duoneb) Rt Caitlin 3 Ml Nebu INH 04/14/25 00:34 3 ml Q2HR PRN Administration SHORTNESS OF BREATH OR WHEEZE Calcitriol 1 mcg 03/17/25 19:30 03/18/25 08:43 Calcitriol 0.25 Mcg Capsule PO 04/16/25 19:29 1 mcg QDAY RAYSA Administration Calcium Acetate 1,334 mg 03/15/25 12:00 03/18/25 07:30 Calcium Acetate 667 Mg Tablet PO 04/14/25 11:59 1,334 mg TIDWM RAYSA Administration Dextrose 25 ml 03/14/25 15:49 Dextrose 50%-Water Inj 50 Ml Syringe IV 04/13/25 15:48 Q15MIN PRN BG 50-70 responsive npo pt Dextrose 50 ml 03/14/25 15:49 Dextrose 50%-Water Inj 50 Ml Syringe IV 04/13/25 15:48 Q15MIN PRN BG <50 OR BG <70 & pt unresponsive Glucagon 1 mg 03/14/25 15:49 Glucagon Inj 1 Mg Vial IM Q15MIN PRN BG <70, and no IV access Heparin Sodium (Porcine) 5,000 unit 03/14/25 22:00 03/18/25 05:42 Heparin Sod Inj 5000 Unit/Ml Vial SC 03/28/25 21:59 Not Given Q8HR RAYSA Heparin Sodium (Porcine) 3,800 unit 03/16/25 14:51 03/17/25 11:18 Heparin Sod Inj 1000 Unit/Ml Vial 10 Ml [facility]WELLCAT 03/30/25 14:50 3,800 unit X1 PRN Administration DIALYSIS Insulin Glargine 10 unit 03/17/25 09:00 03/18/25 08:43 Insulin Glargine (Lantus) 5 Unit/0.05 Ml (Per 5 Units) SC 04/16/25 08:59 10 unit QDAY RAYSA Administration Insulin Human Lispro 0 unit 03/14/25 17:00 03/18/25 07:30 Insulin Lispro (Admelog) 1 Unit/0.01 Ml Unit SC 04/13/25 16:59 Not Given AC RAYSA Protocol Losartan Potassium 50 mg 03/17/25 19:30 03/18/25 08:44 Losartan Potassium 25 Mg Tablet PO 04/16/25 19:29 50 mg QDAY RAYSA Administration Ondansetron HCl 4 mg 03/14/25 15:32 Ondansetron Inj 2 Mg/Ml Inj 2 Ml IV 04/13/25 15:31 Q6H PRN NAUSEA OR VOMITING Protocol Sodium Chloride 3 ml 03/14/25 14:22 03/14/25 14:46 Sodium Chloride Rt Caitlin 0.9% 3 Ml Nebu INH 04/13/25 14:21 3 ml PRN PRN Administration SOLN Plan Patient has advanced CKD stage V secondary to diabetic/hypertensive nephrosclerosis. He has been refusing dialysis for the last currently with the sequelae of azotemia, anemia, renal osteodystrophy, hyperphosphatemia, hyperParathyroidism--patient seems to be end-stage kidney disease needing dialysis. Had a long conversation with the patient regarding the need for dialysis. He finally agreed. Will plan for dialysis on Sunday via [facility]. No need for urgent dialysis. Will do medical management for hyperkalemia and add bicitra for metabolic acidosis, binders for hyperphosphatemia, Retacrit for anemia. Report feeling dizzy after HD yesterday. Currently asymptomatic. Plan for HD tomorrow without fluid removal. ESRD new to HD Hyperphosphatemia Secondary hyper-parathyroidism 2/2 ESRD Admission CR 16.8, BUN 98, EGFR 3. Potassium 4.5. Phos 10.4 Right IJ cath inserted, hemodialysis yesterday, tolerated well PTH 806, VITAMIN D 10. Plan: - HD tomorrow - started calcitriol - Switched amlodipine to losartan for renal protection Anemia in CKD Chronic, Hgb 7.0 today ? EPO with HD Hyperkalemia (resolved) Sodium WNL today ? Daily labs #Nonanion gap metabolic acidosis- resolved #Normocytic anemia #Insulin-dependent type 2 diabetes #Primary hypertension ? Managed by primary team Thank you for the opportunity to participate in the patient's care. I discussed patient's care with attending physician, Dr Leonela Rodriguez PGY3 Attending Provider Attestation/Addendum Patient seen and examined with resident physician Dr. Clifford. Note reviewed, agree with findings and recommendations. Patient has advanced CKD stage V secondary to diabetic/hypertensive nephrosclerosis now progressed to ESRD. . He has been refusing dialysis for the last 2 yrs . currently with the sequelae of azotemia, anemia, renal osteodystrophy, hyperphosphatemia, hyperParathyroidism--patient agreed for dialysis. S/p permacath. Patient so far received 2 dialysis sessions. Next dialysis scheduled for tomorrow. ppd, hep panel, outpatient dialysis ordered Will switch amlodipine to losartan for proteinuria.
--- NOTE | 2025-03-18 11:55 | PD.RESPRO ---
Documentation for date of: 03/18/25 Exam Vital Signs Temp Pulse Resp BP Pulse Ox O2 Del Method O2 Flow Rate 97.9 F 84 18 156/85 H 96 Room Air 2 03/18/25 08:00 03/18/25 08:44 03/18/25 08:00 03/18/25 08:44 03/18/25 08:00 03/18/25 08:00 03/18/25 07:53 FiO2 21 03/17/25 16:00 Objective Labs 03/18/25 06:00 03/18/25 06:00 Labs: Laboratory Results - last 24 hr 03/18/25 06:00 WBC 10.9 H RBC 2.74 L Hgb 7.6 L Hct 22.0 L MCV 80 MCH 27.7 MCHC 34.9 RDW Std Deviation 35.1 Plt Count 164 Neut % (Auto) 73 Lymph % (Auto) 14 [place] % (Auto) 10 Eos % (Auto) 2 Baso % (Auto) 0 Neut # (Auto) 8.0 H Lymph # (Auto) 1.5 [place] # (Auto) 1.1 H Eos # (Auto) 0.2 Baso # (Auto) 0.0 Immature Gran # (Auto) 0.09 H Absolute Nucleated RBC 0.06 H Immature Gran % 1 H Nucleated RBC % 1 H Sodium 136 Potassium 4.2 Chloride 97 L Carbon Dioxide 29.1 Anion Gap 10 BUN 51 H Creatinine 10.1 H* D Estim Creat Clear Calc 9.2 L eGFR 6 L* BUN/Creatinine Ratio 5 L Glucose 153 H Calculated Osmolality 288 Calcium 9.0 Corrected Calcium 9.5 Total Bilirubin 0.4 AST 17 ALT 13 Alkaline Phosphatase 98 Total Protein 6.1 Albumin 3.4 L Globulin 2.7 Albumin/Globulin Ratio 1.3 Quality Measures Quality Measures VTE prophylaxis Assessment & Plan Assessment Current Active Medications: Generic Name Dose Route Start Last Admin Trade Name Freq PRN Reason Stop Dose Admin Acetaminophen 650 mg 03/14/25 15:32 03/17/25 08:50 Acetaminophen 325 Mg Tablet PO 04/13/25 15:31 650 mg Q6H PRN Administration Fever >101.5 Albuterol/Ipratropium 3 ml 03/15/25 00:35 03/17/25 07:26 Albuterol/Ipratropium (Duoneb) Rt Caitlin 3 Ml Nebu INH 04/14/25 00:34 3 ml Q2HR PRN Administration SHORTNESS OF BREATH OR WHEEZE Calcitriol 1 mcg 03/17/25 19:30 03/18/25 08:43 Calcitriol 0.25 Mcg Capsule PO 04/16/25 19:29 1 mcg QDAY [facility] Administration Calcium Acetate 1,334 mg 03/15/25 12:00 03/18/25 07:30 Calcium Acetate 667 Mg Tablet PO 04/14/25 11:59 1,334 mg TIDWM RAYSA Administration Dextrose 25 ml 03/14/25 15:49 Dextrose 50%-Water Inj 50 Ml Syringe IV 04/13/25 15:48 Q15MIN PRN BG 50-70 responsive npo pt Dextrose 50 ml 03/14/25 15:49 Dextrose 50%-Water Inj 50 Ml Syringe IV 04/13/25 15:48 Q15MIN PRN BG <50 OR BG <70 & pt unresponsive Glucagon 1 mg 03/14/25 15:49 Glucagon Inj 1 Mg Vial IM Q15MIN PRN BG <70, and no IV access Heparin Sodium (Porcine) 5,000 unit 03/14/25 22:00 03/18/25 05:42 Heparin Sod Inj 5000 Unit/Ml Vial SC 03/28/25 21:59 Not Given Q8HR [facility] Heparin Sodium (Porcine) 3,800 unit 03/16/25 14:51 03/17/25 11:18 Heparin Sod Inj 1000 Unit/Ml Vial 10 Ml [facility]WELLCAT 03/30/25 14:50 3,800 unit X1 PRN Administration DIALYSIS Insulin Glargine 10 unit 03/17/25 09:00 03/18/25 08:43 Insulin Glargine (Lantus) 5 Unit/0.05 Ml (Per 5 Units) SC 04/16/25 08:59 10 unit QDAY RAYSA Administration Insulin Human Lispro 0 unit 03/14/25 17:00 03/18/25 07:30 Insulin Lispro (Admelog) 1 Unit/0.01 Ml Unit SC 04/13/25 16:59 Not Given AC [facility] Protocol Losartan Potassium 50 mg 03/17/25 19:30 03/18/25 08:44 Losartan Potassium 25 Mg Tablet PO 04/16/25 19:29 50 mg QDAY RAYSA Administration Ondansetron HCl 4 mg 03/14/25 15:32 Ondansetron Inj 2 Mg/Ml Inj 2 Ml IV 04/13/25 15:31 Q6H PRN NAUSEA OR VOMITING Protocol Sodium Chloride 3 ml 03/14/25 14:22 03/14/25 14:46 Sodium Chloride Rt Caitlin 0.9% 3 Ml Nebu INH 04/13/25 14:21 3 ml PRN PRN Administration SOLN
[2025-03-18] MEDS: INSULIN LISPRO (AdmeLOG) 1 UNIT/0.01 ML UNIT SC (11:57)
[2025-03-18 13:21] LABS: Phosphorous 6.3 mg/dL (2.4-5.1)
--- NOTE | 2025-03-18 13:54 | PC.SS ---
Addendum entered by Hayley Breen 03/18/25 15:12: SS follow up note; SS met with patient and provided chair time as well as [facility] information, SS explained to patient he must follow up tomorrow at 9:15AM for first Dialysis session. Patient verbalized understanding. Patient will discharge today. Addendum entered by Hayley Breen 03/18/25 14:34: SS follow up note; SS contacted Dr. Pollard in regards to chair time and Dialysis center not being to due intakes on Sunday'. Dr. Pollard informed SS that patient could discharge today and follow up for first dialysis Session tomorrow at 9:15AM. SS will provide Chair time to patient. SS also updated Dr. Garcia. Original Note: SS follow up note; Patient will have 3rd dialysis session tomorrow. SS was contacted by Hodan from [facility] and she provided chair time for , , Saturdays for 9:50 AM. SS will provide chair time to patient.
[2025-03-18] MEDS: HEPARIN SOD INJ 5000 UNIT/ML VIAL SC (15:04)
--- NOTE | 2025-03-18 16:40 | PC.NURSE ---
Pt getting ready for discharge, pt is on 2L NC and has home o2. Pt's did not bring his home o2 tank to take him home, kept pt on RA for 15 minutes o2 sats fluctuated between 91-95% no shortness of breath. pt states he only lives about 12 minutes away and wants to go home without oxygen and will put his oxygen on as soon as he gets home. stumper feller Zeenat made aware as well as Dr. Garcia. Per Dr. Garcia pt can go home on room air during transportation.
--- NOTE | 2025-03-18 20:06 | ESDS_ITS ---
<Statement entered by Ghassan Durant MD - 03/25/25 09:28> I reviewed above note and agree with findings and plans. I have also personally examined the patient with medicine team and went over assessment and plan with medical team including inclusion intern and resident physician. Planned Discharge Date 03/18/25 DS: Providers Provider Date of admission: 03/14/25 15:32 Primary care physician: Sid Velasquez PA-C Admitting Provider: Ellen Kraus DO Attending Provider on Admission: Ghassan Durant MD Consults: 03/14/25 14:10 Consult to Nephrology Stat Comment: esrd Consulting Provider: Juliana Gpison Attending Provider on DC: Camilo Meade MD Discharging Provider: Camilo Meade MD DS: Diagnosis Problem List Completed Was Problem List Reviewed/Reconciled?: Yes Hospital Course Hospital Course Hospital course: Mr. Chase is a 49-year-old male with past medical history significant for hypertension, insulin-dependent type 2 diabetes and CKD presented to [facility] ED on 03/14/2025 with a known history of Stage V Chronic Kidney Disease (CKD), presented with complaints of shortness of breath and cough. The patient has previously declined dialysis on multiple occasions and has followed inconsistently with outpatient art critic Dr. Gipson. The patient was admitted for further management of acute renal failure. On admission, the patient was found to be in acute renal failure superimposed on end-stage renal disease (ESRD), necessitating initiation of dialysis. Renal ultrasound demonstrated bilateral cortical thinning and moderate bilateral renal parenchymal scarring. Nephrology, under the care of Dr. Gipson, was consulted. Despite initial refusal, the patient eventually consented to dialysis due to persistent worsening of renal function, electrolyte imbalances, and lack of improvement in respiratory symptoms. A tunneled dialysis catheter was placed on 03/16/2025, and the patient subsequently underwent hemodialysis on 03/16 and 03/17. Outpatient dialysis arrangements were made, including the assignment of a dialysis chair. Following dialysis, the patient reported significant symptomatic improvement, including complete resolution of shortness of breath. Oxygen saturation was stable on room air, and the patient remained hemodynamically stable. Given the clinical improvement and the establishment of outpatient dialysis services, the patient was deemed appropriate for discharge with instructions to continue outpatient dialysis and follow-up with Dr. Gipson.patient is hemodynamically stable to be discharged home to self-care. Discharge Recommendations Please go to dialysis center tomorrow as scheduled to start sessions. 03/19/25 @0445 Every Sunday @0510 Please follow up with Dr. Gipson within 10 days of discharge for insulin adjustment. Continue using amlodipine 5. Start taking losartan 50mg. Start calcitriol and calcium acetate. Continue with rest of home medications. Stop taking Janumet, avoid metformin as it will cause bad side effects due to your kidneys. Hospitalization Diagnosis #Acute renal failure, in the setting of #CKD. #ESRD on HD started on 03/16 #Hyperkalemia- resolved. #Hyperphosphatemia. #Nonanion gap metabolic acidosis- resolved. #Normocytic anemia. #Anemia of chronic disease. #Insulin-dependent type 2 diabetes. #Primary hypertension Assessment and plan discussed with my attending physician Dr. Carleen Meade (PGY-1)- Internal medicine resident Time Spent with Patient Time attestation: Total time spent providing and/or coordinating discharge services: Time spent: Greater than 30 minutes Exam Vital Signs Temp Pulse Resp BP Pulse Ox O2 Del Method O2 Flow Rate 98.5 F 86 21 H 136/81 H 96 Nasal Cannula 2 03/18/25 16:00 03/18/25 16:00 03/18/25 16:00 03/18/25 16:00 03/18/25 16:00 03/18/25 16:00 03/18/25 16:00 FiO2 21 03/17/25 16:00 Narrative Exam GENERAL: A&Ox3 . Awake, cooperative middle age male NEURO: no focal neurological deficits noted HEENT: Atraumatic, Normocephalic. mucous membranes moist. Eyes open, symmetrical, & clear, Right IJ dialysis cath present HEART: Normal Heart Sounds LUNGS: Clear lung sounds heard bilaterally SKIN: No Rash or ecchymoses EXTREMITIES: LEFT BKA, No edema or tenderness, able to move all 4 extremities (inlcuding the L. BKA) , diminished pedal pulses in right foot Discharge Plan Plan Patient Disposition: HOME (Self Care) Disposition Comment: Stable Patient condition on transfer: Stable Care Plan Goals: Please go to dialysis center tomorrow as scheduled to start sessions. 03/19/25 @0445 Every Sunday @0510 Please follow up with Dr. Gipson within 10 days of discharge for insulin adjustment. Continue using amlodipine 5. Start taking losartan 50mg. Start calcitriol and calcium acetate. Continue with rest of home medications. Stop taking Janumet, avoid metformin as it will cause bad side effects due to your kidneys. Prescriptions/Referrals Prescriptions/Med Rec: New losartan 50 mg tablet 50 mg PO QDAY Qty: 30 0RF calcitriol 0.5 mcg capsule 0.5 mcg PO QDAY Qty: 30 0RF calcium acetate 667 mg tablet 667 mg PO TID Qty: 90 0RF Continued amlodipine 5 mg Tablet 5 mg PO QDAY Basaglar KwikPen U-100 Insulin 100 unit/mL (3 mL) Insulin Pen 35 unit SUBCUT QDAY albuterol sulfate [Proventil HFA] 90 mcg/actuation HFA aerosol inhaler 1 inh inhalation QID PRN (Reason: shortness of breath or wheezing) Qty: 8.5 0RF Discontinued Janumet 50-1,000 mg Tablet 1 tab PO BID dexamethasone [Decadron] 6 mg tablet 6 mg PO QDAY Qty: 4 0RF Referrals: Juliana Gipson MD [Physician] - Sid Velasquez PA-C [Primary Care Provider] - Patient/Caregiver Discharge Instructions Education Materials: Hemodialysis Print Language: Dominican Stand Alone Forms: Rolanda Award Info., Patient Portal Info Letter Discharge Order Discharge Orders: Discharge (Routine); Ordered 03/18/25 Ordered By: Remigio Garcia Quality Discharge Quality Measures VTE prophylaxis
[2025-03-20 06:59] LABS: Hepatitis B Core Ab,Total* NONREACTIVE
== END 2025-03-18 16:48 | disposition home or self-care (01) | DRG 469 ==
LOC: SERX 12:19 → SERHOLD 15:41 → S2NX 18:34
PROVIDERS: Internal Medicine; Nurse Practitioner Primary Care; Radiology Diagnostic Radiology; Student in an Organized Health Care Education/Training Program; Admitting Provider Internal Medicine; Emergency Provider Emergency Medicine; PCP Physician Assistant; Visit Provider Internal Medicine
DX: N17.9 Acute kidney failure, unspecified (principal); E11.22 Type 2 diabetes mellitus with diabetic chronic kidney disease; N18.6 End stage renal disease; Z89.512 Acquired absence of left leg below knee; E87.5 Hyperkalemia; E87.20 Acidosis, unspecified; D63.1 Anemia in chronic kidney disease; E78.5 Hyperlipidemia, unspecified; E03.9 Hypothyroidism, unspecified; I12.0 Hypertensive chronic kidney disease with stage 5 chronic kidney disease or end stage renal disease; E83.39 Other disorders of phosphorus metabolism; N25.0 Renal osteodystrophy; N25.81 Secondary hyperparathyroidism of renal origin; E11.51 Type 2 diabetes mellitus with diabetic peripheral angiopathy without gangrene; N27.1 Small kidney, bilateral; J18.9 Pneumonia, unspecified organism; Z79.4 Long term (current) use of insulin; E21.3 Hyperparathyroidism, unspecified; Z79.84 Long term (current) use of oral hypoglycemic drugs; Z89.511 Acquired absence of right leg below knee; Z91.158 Patient's noncompliance with renal dialysis for other reason; Z99.2 Dependence on renal dialysis
CPT/HCPCS: 36415; 71045; 71046; 76770; 76937; 77001; 80053; 80061; 80069; 80074; 81001; 82306; 82570; 82728; 83036; 83540; 83550; 83735; 83970; 84100; 84132; 84156; 84443; 84550; 85025; 85610; 85730; 86580; 86703; 86704; 86705; 86706; 87086; 87400; 87651; 87811; 93306; 94640; 94660; 94664; 96374; 96375; 99285; A9270; C1894; J1642; J1643; J1815; J1938; J3010; J3490; J7050; J7060; Q0139; Q4081; J1920

== ENCOUNTER 2025-11-17 13:14 | Inpatient (IN) | payer MEDICAID, SELFPAY ==
[2025-11-17] VITALS (19 sets, daily range): BP systolic 174–207; BP diastolic 82–100; PULSE 67–81; RESP 12–94; TEMP 36.7–37.3; O2SAT 91–99; BMI 33.4
--- NOTE | 2025-11-17 13:57 | XR_ITS ---
EXAMINATION: AP chest single view TECHNIQUE: AP portable upright chest single view Date and time: November 17, 2025, 1417 hours INDICATION: Cough and shortness of breath chest pain beginning 3 days ago FINDINGS: Normal heart size Moderate vascular congestion Right internal jugular dialysis catheter tip satisfactory position No lobar pneumonia Moderate osteopenia IMPRESSION: Moderate vascular congestion
--- NOTE | 2025-11-17 14:16 | EKG_ITS ---
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
[2025-11-17] MEDS: ALBUTEROL/IPRATROPIUM (Duoneb) RT SOL 3 ML NEBU INH (14:34)
[2025-11-17 15:00] LABS: Basophils # (Auto) 0.0 Thou/mm3 (0.0-0.2); Basophils % (Auto) 1 % (0-2.5); Eosinophils # (Auto) 0.3 Thou/mm3 (0.0-0.5); Eosinophils % (Auto) 4 % (0-10); Hematocrit 28.3 % (41.0-53.0); Hemoglobin 9.8 g/dL (13.5-16.0); Immature Granulocytes Auto 0.02 Thou/mm3 (0.00-0.00); Lymphocytes # (Auto) 1.4 Thou/mm3 (1.0-4.8); Lymphocytes % (Auto) 17 % (10-50); Mean Corpuscular HGB Conc 34.6 g/dl (31.0-37.0); Mean Corpuscular Hemoglobin 27.3 pg (25.0-35.0); Mean Corpuscular Volume 79 fL (80-100); Monocytes # (Auto) 1.0 Thou/mm3 (0.0-0.8); Monocytes % (Auto) 13 % (0-12); Neutrophils # (Auto) 5.2 Thou/mm3 (1.8-7.7); Neutrophils % (Auto) 66 % (37-80); Nucleated Red Blood Cell # 0.00 Thou/mm3 (0.00-0.00); Nucleated Red Blood Cell % 0 /100 WBC (0); Platelet Count 153 Thou/mm3 (140-440); RDW Standard Deviation 46.0 fL (35.1-43.9); Red Blood Count 3.59 Miln/mm3 (4.50-5.90); White Blood Count 8.0 Thou/mm3 (3.8-10.6)
--- NOTE | 2025-11-17 15:15 | PD.EDRME ---
Rapid Medical Screening Exam RME Arrival date/time: 11/17/25 13:14 This is a case of 50-year-old male with history of diabetes hypertension ESRD on dialysis left BKA came in in the emergency room due to shortness of breath chest pain and cough for 1 week worsening of the symptoms this patient decided to sought consult here in the emergency room Chief Complaint: Flu Like Symptoms Time Seen by Provider: 11/17/25 13:19 Vital signs: Vital Signs Temperature 99.2 F 11/17/25 13:53 Pulse Rate 81 11/17/25 13:53 Respiratory Rate 18 11/17/25 13:53 Blood Pressure 185/82 H 11/17/25 13:53 Pulse Oximetry (%) 98 11/17/25 13:53 Oxygen Delivery Method Room Air 11/17/25 13:53 Exam: Wheezing both lower lung field no crackles no rales no retraction no stridor normal rate regular rhythm normal Clinical Impression: Chest pain shortness of breath
[2025-11-17 15:37] LABS: B-Type Natriuretic Peptide 946 pg/mL (0-100)
[2025-11-17 15:38] LABS: Alanine Aminotransferase 12 U/L (10-49); Albumin, Serum 4.0 gm/dL (3.5-5.0); Albumin/Globulin Ratio 1.5 (1.2-2.2); Alkaline Phosphatase 82 U/L (46-116); Anion Gap 11 (7-16); Aspartate Amino Transferase 26 U/L (0-34); BUN/Creatinine Ratio 3 Ratio (12-20); Bilirubin,Total 0.4 mg/dL (0.3-1.2); Blood Urea Nitrogen 29 mg/dL (9-23); Calcium 10.4 mg/dL (8.3-10.6); Calcium (Corrected) 10.4 mg/dL (8.5-10.1); Carbon Dioxide 27.8 mMol/L (20.0-31.0); Chloride 102 mMol/L (98-107); Creatinine (Component) 11.3 mg/dL (0.6-1.3); Estimated Creatinine Clearance 8.3 mL/min (>60); Globulin 2.6 gm/dL (2.3-3.5); Glucose 59 mg/dL (74-106); Osmolality,Calculated 285 (275-295); Potassium 4.0 mMol/L (3.4-5.1); Sodium 141 mMol/L (136-145); Total Protein 6.6 gm/dL (5.7-8.2); eGFR 5 See Note
[2025-11-17 15:54] LABS: Troponin I 0.088 ng/mL (0.0-0.045)
--- NOTE | 2025-11-17 18:41 | PD.EDADULT ---
ED General RME/HPI General Chief complaint: Flu Like Symptoms Stated complaint: COUGH Time Seen by Provider: 11/17/25 13:19 Arrival date/time: 11/17/25 13:14 CC: Shortness of breath HPI ongoing for 1 day. The patient states he has been not feeling good . The patient missed dialysis today he is typically on a Sunday schedule Dr Gipson is his catalogue illustrator. Patient denies fever or other family members being ill. Denies chest pain or nausea or vomiting. RME / HPI RME / HPI narrative: 11/17/25 13:14 This is a case of 50-year-old male with history of diabetes hypertension ESRD on dialysis left BKA came in in the emergency room due to shortness of breath chest pain and cough for 1 week worsening of the symptoms this patient decided to sought consult here in the emergency room Exam: Wheezing both lower lung field no crackles no rales no retraction no stridor normal rate regular rhythm normal Impression: Chest pain shortness of breath Related Data Home Medications ?Medication ?Instructions ?Recorded ?Confirmed amlodipine 5 mg tablet 5 mg PO QDAY 09/01/20 09/01/20 insulin glargine 100 unit/mL (3 35 unit subcut QDAY 09/01/20 09/01/20 mL) subcutaneous pen (Basaglar KwikPen U-100 Insulin) Previous Rx's ?Medication ?Instructions ?Recorded albuterol sulfate 90 mcg/actuation 1 inh inhalation QID PRN shortness 09/06/20 aerosol inhaler (Proventil HFA) of breath or wheezing #8.5 grams calcitriol 0.5 mcg capsule 0.5 mcg PO QDAY #30 caps 03/18/25 calcium acetate 667 mg tablet 667 mg PO TID #90 tabs 03/18/25 losartan 50 mg tablet 50 mg PO QDAY #30 tabs 03/18/25 Allergies Allergy/AdvReac Type Severity Reaction Status Date / Time No Known Allergies Allergy Verified 11/17/25 13:16 Review of Systems Review of Systems Narrative Review of Systems: GEN: No fever, no chills, no weight loss EYES: No discharge, no visual changes, no pain HEENT: No ear pain, no congestion, no sore throat PULM: +shortness of breath, no cough, no congestion CV: No chest pain, no dyspnea on exertion, no palpitations GI: No nausea, no vomiting, no diarrhea, no pain, no constipation : No frequency, no urgency, no dysuria MUSC/SKEL: No joint pain, no back pain SKIN: No rash PSYCH: No hallucinations, no depression HEME/LYMPH: No easy bleeding or bruising tendencies NEURO: No weakness, no headache Past Medical History Past Medical History CARDIAC: Negative Cardiac Disorders or Congestive Heart Failure RESPIRATORY: Negative Chronic Obstructive Pulmonary Disease (COPD) GENITOURINARY: Negative Renal Disease ENDOCRINE: Positive Endocrine Disorders, Diabetes Mellitus Type 2 and Hypothyroidism; Negative Diabetes Mellitus Type 1 Surgical History SURGICAL: Positive Eye Surgery (cataracts, left eye) and Amputation (L BKA) Social History SMOKING STATUS: Never smoker SECOND HAND EXPOSURE: Yes ED Exam Narrative Physical exam: [General: Obese not in any acute distress Head normocephalic HEENT: Within acceptable limits Neck is supple nontender Chest equal chest rise nontender to palpation right anterior dialysis catheter site chest clean dry and intact with dry dressing. Respiratory: Clear to auscultation no wheezes crackles or rubs not tachypneic. CV: Rate rhythm is regular no murmurs rubs or clicks Abdomen is distended secondary to body habitus soft nontender no masses positive bowel sounds all 4 quadrants Back: No CVA tenderness no spinous process tenderness from cervical spine thoracic and lumbar spine Skin: Intact no petechiae rash induration ulceration or crepitus left BKA surgical site clean dry and intact. Stump nontender to palpation. Extremities: Moving all extremity against resistance cap refill less than 2 seconds neurosensory intact Neuro: Awake alert oriented x3 Glascow coma 15 no focal deficits] Course Course Course Narrative: Patient's case clinical findings laboratory and imaging discussed with Dr. Gipson, catalogue illustrator who states because of holiday scheduling, the patient will need to be admitted and dialyzed in sequence. Quality Measures none Orders Category Date Time Status Admit to Inpatient Status Routine Admission 11/17/25 19:56 Active Patient Condition Routine Admission 11/17/25 19:55 Ordered Bedside Blood Glucose ACHS Care 11/17/25 19:55 Active Bedside COVID-19 Antigen Test NOW Care 11/17/25 18:35 Active Bedside Influenza A&B Antigen Test NOW Care 11/17/25 18:35 Completed COVID-19 Screening Questionnaire NOW Care 11/17/25 19:47 Active EKG (ED ONLY) *Do not use* NOW Care 11/17/25 14:16 Completed Notify provider NEEDED Care 11/17/25 19:55 Active Obtain weight daily Care 11/17/25 19:57 Active Strict Intake and Output Routine Care 11/17/25 19:56 Ordered Consult to Nephrology Stat Cons 11/17/25 19:17 Ordered Diet Cardiac Diet 11/18/25 Breakfast Active EKG (ED Only) Stat Exams 11/17/25 14:16 Draft XR chest 1V Stat Exams 11/17/25 13:57 Completed BNP [B-Type Natriuretic Peptide] Stat Lab 11/17/25 14:50 Completed CBC AM DRAW Lab 11/18/25 05:00 Ordered CBC AM DRAW Lab 11/19/25 05:00 Ordered CBC AM DRAW Lab 11/20/25 05:00 Ordered CBC Stat Lab 11/17/25 14:50 Completed CMP [Comprehensive Metabolic Panel] Stat Lab 11/17/25 14:50 Completed Comprehensive Metabolic Panel AM DRAW Lab 11/18/25 05:00 Ordered Comprehensive Metabolic Panel AM DRAW Lab 11/19/25 05:00 Ordered Comprehensive Metabolic Panel AM DRAW Lab 11/20/25 05:00 Ordered Magnesium AM DRAW Lab 11/18/25 05:00 Ordered Magnesium AM DRAW Lab 11/19/25 05:00 Ordered Magnesium AM DRAW Lab 11/20/25 05:00 Ordered Phosphorous AM DRAW Lab 11/18/25 05:00 Ordered Phosphorous AM DRAW Lab 11/19/25 05:00 Ordered Phosphorous AM DRAW Lab 11/20/25 05:00 Ordered Troponin I Q6H Lab 11/17/25 20:55 Completed Troponin I Q6H Lab 11/18/25 02:00 Ordered Troponin I Q6H Lab 11/18/25 08:00 Ordered Troponin I Stat Lab 11/17/25 14:50 Completed Urinalysis Stat Lab 11/17/25 20:15 Completed Acetaminophen Tab [Tylenol Tab] Med 11/17/25 19:55 Active 650 mg PO Q6H PRN Albuterol/Ipratr Rt Caitlin [Duoneb Rt Caitlin] Med 11/17/25 13:57 Discontinued 3 ml INH X1 ONE Dextrose 50% Syr [D50w Syringe Abboject] Med 11/17/25 19:55 Active 25 ml IV Q15MIN PRN Dextrose 50% Syr [D50w Syringe Abboject] Med 11/17/25 19:55 Active 50 ml IV Q15MIN PRN Glucagon Inj Med 11/17/25 19:55 Active 1 mg IM Q15MIN PRN Heparin Inj Med 11/17/25 22:00 Active 5,000 unit SC Q8HR INSULIN LISPRO (AdmeLOG) [HumaLOG] Med 11/18/25 07:30 Active See Protocol SC AC Labetalol* IV [Trandate IV] Med 11/17/25 19:55 Discontinued 10 mg IVP X1 ONE Ondansetron Inj [Zofran Inj] Med 11/17/25 19:55 Active 4 mg IVP Q6H PRN cloNIDine HCL [Catapres] Med 11/17/25 14:16 Discontinued 0.1 mg PO X1 ONE Code Status Routine Oth 11/17/25 19:55 Ordered BiPAP / CPAP NOW RT 11/17/25 20:11 Active Oxygen Delivery PRN RT 11/17/25 19:55 Active Vital Signs Vital signs: Vital Signs Temperature 99.2 F 11/17/25 13:53 Pulse Rate 81 11/17/25 13:53 Respiratory Rate 18 11/17/25 13:53 Blood Pressure 185/82 H 11/17/25 13:53 Pulse Oximetry (%) 98 11/17/25 13:53 Oxygen Delivery Method Room Air 11/17/25 13:53 Discharge Plan Plan Patient Disposition: Other Care w/in Hosp ([facility]) Problem List Clinical Impression: Shortness of breath, ESRD (end stage renal disease), Fluid overload MDM Medication Administration(s) Medication Administration History Acetaminophen (Acetaminophen 325 Mg Tablet) 650 mg PO Q6H PRN PRN Reason: Fever >100.4 and mild pain 1-3 Stop: 12/17/25 19:54 Dextrose (Dextrose 50%-Water Inj 50 Ml Syringe) 25 ml IV Q15MIN PRN PRN Reason: BG 50-70 responsive npo pt Stop: 12/17/25 19:54 Dextrose (Dextrose 50%-Water Inj 50 Ml Syringe) 50 ml IV Q15MIN PRN PRN Reason: BG <50 OR BG <70 & pt unresponsive Stop: 12/17/25 19:54 Last Admin: 11/17/25 21:43 Dose: 50 ml Documented By: DAMIR Epoetin Nba (Epoetin Nba-Epbx Inj 10,000 Unit/Ml Vial (Esrd)) 10,000 unit SC X1 ONE Stop: 11/17/25 23:31 Glucagon (Glucagon Inj 1 Mg Vial) 1 mg IM Q15MIN PRN PRN Reason: BG <70, and no IV access Heparin Sodium (Porcine) (Heparin Sod Inj 5000 Unit/Ml Vial) 5,000 unit SC Q8HR RAYSA Stop: 12/01/25 21:59 Heparin Sodium (Porcine) (Heparin Sod Inj 1000 Unit/Ml Vial 10 Ml) 3,800 unit INDWELLCAT PRN PRN PRN Reason: DIALYSIS Stop: 12/01/25 22:08 Albumin Human (Albuminex 25% Ivpb) 25 gm in 100 mls @ 0 mls/hr IV Q30MIN PRN PRN Reason: To maintain SBP>90 Insulin Human Lispro (Insulin Lispro (Admelog) 1 Unit/0.01 Ml Unit) 0 unit SC AC RAYSA; Protocol Stop: 12/18/25 07:29 Ondansetron HCl (Ondansetron Inj 2 Mg/Ml Inj 2 Ml) 4 mg IVP Q6H PRN; Protocol PRN Reason: NAUSEA OR VOMITING Stop: 12/17/25 19:54 Discontinued Medications Albuterol/Ipratropium (Albuterol/Ipratropium (Duoneb) Rt Caitlin 3 Ml Nebu) 3 ml INH X1 ONE Stop: 11/17/25 13:58 Last Admin: 11/17/25 14:34 Dose: 3 ml Documented By: AA Clonidine (Clonidine Hcl 0.1 Mg Tablet) 0.1 mg PO X1 ONE Stop: 11/17/25 14:17 Last Admin: 11/17/25 14:52 Dose: 0.1 mg Documented By: OA Furosemide (Furosemide Inj 10 Mg/Ml Vial 2 Ml) 40 mg IVP X1 ONE Stop: 11/17/25 20:01 Last Admin: 11/17/25 20:27 Dose: 40 mg Documented By: EE Labetalol HCl (Labetalol Inj 5 Mg/Ml Vial 4 Ml) 10 mg IVP X1 ONE Stop: 11/17/25 19:56 Last Admin: 11/17/25 20:31 Dose: Not Given Documented By: EE Non-Admin Reason: See IV Spreadsheet Comments: pt scheduled for dialysis now
--- NOTE | 2025-11-17 20:18 | ESHP_ITS ---
Documentation for date of: 11/17/25 HPI History of Present Illness Chief complaint: SOB and Cough History of present illness: 50-year-old male with past medical history of hypertension, IDDM, HFpEF (55 to 60%), ESRD (HD on Sunday/Sunday/Saturdays) comes into the ED with chief complaint of shortness of breath and cough that started around 1 day ago. Patient states that last night he had trouble breathing and has since then worsened and he decided to come to the ED. He mentioned that his last hemodialysis session was Sunday and that he missed today's session due to that he was not feeling too well. Patient denies having any fevers or chills at home and no sick contacts. He also mentioned that he has been taking his blood pressure medications today and has not missed doses. Otherwise was somewhat somnolent, but easily awake able to verbal command and stated that he did not have a good nights rest. Denies any chest pain or abdominal pain at this time. Does make urine. ED course: Initially came in hypotensive and afebrile. Initial labs were relevant for low hemoglobin, hypoglycemia, troponinemia, and elevated BNP. Initial chest x-ray showed vascular congestion and EKG did not show any acute ST changes. In the ED patient received clonidine x 1. ED provider also spoke with commercial tire service technician for urgent hemodialysis. PMH: As above Social Hx: Denies any smoking, drugs, alcohol Allergies: NKDA Review of Systems Review of Systems Systems Reviewed: All systems reviewed, normal except as documented Past Medical History Past Medical History CARDIAC: Negative Cardiac Disorders or Congestive Heart Failure RESPIRATORY: Negative Chronic Obstructive Pulmonary Disease (COPD) GENITOURINARY: Negative Renal Disease ENDOCRINE: Positive Endocrine Disorders, Diabetes Mellitus Type 2 and Hypothyroidism; Negative Diabetes Mellitus Type 1 Surgical History SURGICAL: Positive Eye Surgery (cataracts, left eye) and Amputation (L BKA) Social History SMOKING STATUS: Never smoker SECOND HAND EXPOSURE: Yes Exam Vital Signs Temp Pulse Resp BP Pulse Ox O2 Del Method 98.4 F 79 22 H 193/96 H 91 L Room Air 11/17/25 19:56 11/17/25 19:56 11/17/25 19:56 11/17/25 19:56 11/17/25 19:56 11/17/25 19:56 Narrative Exam Gen: A&O X 3, somnolent HEENT: NCAT, EOMI, Pupils reactive ELVA, not icteric. External ears normal. No rhinorrhea. Moist mucous membranes. Neck: Supple, full range of motion, no observable masses, No meningeal sign. Lungs: No Respiratory distress, crackles bilateral lower lobes R>L. CV: RRR, no murmurs. Abdomen: Soft, nondistended, No rebound tenderness. MSK: No joint swelling, no redness, peripheral pulses presents, Trace R LE edema. L BKA. Skin: No rashes, petechiae, lesions. Neuro: No focal neurological deficits appreciated, sensory and motor intact. Psych: Cooperative, appropriate mood and effect. Results: Labs 11/17/25 14:50 11/17/25 14:50 Labs: Short CBC 11/17/25 Range/Units 14:50 WBC 8.0 (3.8-10.6) Thou/mm3 Hgb 9.8 L (13.5-16.0) g/dL Hct 28.3 L (41.0-53.0) % Plt Count 153 (140-440) Thou/mm3 BMP 11/17/25 14:50 Sodium 141 Potassium 4.0 Chloride 102 Carbon Dioxide 27.8 BUN 29 H Creatinine 11.3 H* Glucose 59 L Calcium 10.4 Cardiac Enzymes 11/17/25 Range/Units 14:50 Troponin I 0.088 H* (0.0-0.045) ng/mL Liver Function 11/17/25 Range/Units 14:50 Total Bilirubin 0.4 (0.3-1.2) mg/dL AST 26 (0-34) U/L ALT 12 (10-49) U/L Alkaline Phosphatase 82 (46-116) U/L Albumin 4.0 (3.5-5.0) gm/dL Quality Measures Quality Measures VTE prophylaxis Medications Home Medications and Allergies Home Medications ?Medication ?Instructions ?Recorded ?Confirmed ?Type amlodipine 5 mg tablet 5 mg PO QDAY 09/01/20 History insulin glargine 100 unit/mL (3 35 unit subcut QDAY 09/01/20 History mL) subcutaneous pen (Basaglar KwikPen U-100 Insulin) Allergies Allergy/AdvReac Type Severity Reaction Status Date / Time No Known Allergies Allergy Verified 11/17/25 13:16 Visit Medications Acetaminophen (Acetaminophen 325 Mg Tablet) 650 mg PO Q6H PRN PRN Reason: Fever >100.4 and mild pain 1-3 Stop: 12/17/25 19:54 Dextrose (Dextrose 50%-Water Inj 50 Ml Syringe) 25 ml IV Q15MIN PRN PRN Reason: BG 50-70 responsive npo pt Stop: 12/17/25 19:54 Dextrose (Dextrose 50%-Water Inj 50 Ml Syringe) 50 ml IV Q15MIN PRN PRN Reason: BG <50 OR BG <70 & pt unresponsive Stop: 12/17/25 19:54 Epoetin Nba (Epoetin Nba-Epbx Inj 10,000 Unit/Ml Vial (Esrd)) 10,000 unit SC X1 ONE Stop: 11/17/25 23:31 Glucagon (Glucagon Inj 1 Mg Vial) 1 mg IM Q15MIN PRN PRN Reason: BG <70, and no IV access Heparin Sodium (Porcine) (Heparin Sod Inj 5000 Unit/Ml Vial) 5,000 unit SC Q8HR RAYSA Stop: 12/01/25 21:59 Albumin Human (Albuminex 25% Ivpb) 25 gm in 100 mls @ 0 mls/hr IV Q30MIN PRN PRN Reason: To maintain SBP>90 Insulin Human Lispro (Insulin Lispro (Admelog) 1 Unit/0.01 Ml Unit) 0 unit SC AC [facility]; Protocol Stop: 12/18/25 07:29 Ondansetron HCl (Ondansetron Inj 2 Mg/Ml Inj 2 Ml) 4 mg IVP Q6H PRN; Protocol PRN Reason: NAUSEA OR VOMITING Stop: 12/17/25 19:54 Discontinued Medications Albuterol/Ipratropium (Albuterol/Ipratropium (Duoneb) Rt Caitlin 3 Ml Nebu) 3 ml INH X1 ONE Stop: 11/17/25 13:58 Last Admin: 11/17/25 14:34 Dose: 3 ml Clonidine (Clonidine Hcl 0.1 Mg Tablet) 0.1 mg PO X1 ONE Stop: 11/17/25 14:17 Last Admin: 11/17/25 14:52 Dose: 0.1 mg Furosemide (Furosemide Inj 10 Mg/Ml Vial 2 Ml) 40 mg IVP X1 ONE Stop: 11/17/25 20:01 Labetalol HCl (Labetalol Inj 5 Mg/Ml Vial 4 Ml) 10 mg IVP X1 ONE Stop: 11/17/25 19:56 Assessment & Plan Plan 50-year-old male with past medical history of hypertension, IDDM, HFpEF (55- 60%), ESRD (HD on Sunday/Sunday/Saturdays) admitted to hospital on 11/17/2025 due to Hypertensive emergency, possible CHF exacerbation in setting of HFpEF, and electrolyte derangements secondary to missing a hemodialysis session. #HTN Emergency #NSTEMI, likely type II Patient's BP in the 180-190s in the ED Troponins elevated at 0.088 likely demand ischemia EKG did not show any acute ST changes Patient denied Chest Pain Plan: Lasix 40mg IV x1 Labetolol IV 10mg x1 HD with fluid removal Trend trops #CHF exacerbation in setting of missed HD #Hx of HFpEF (EF 55 to 60%) Patient is comes in with increased shortness of breath as well as some trace lower extremity swelling accompanied with crackles on physical exam. Patient's initial BNP was elevated at 946 Limited bedside ultrasound done and showed good contractility, but there seems to be some diastolic dysfunction and patient also found to have pulmonary edema on ultrasound as well. Plan: IV Lasix 40 x 1 Patient to undergo hemodialysis with fluid removal. Strict AMLORIE's Daily weights Fluid restrictions [address] for strict output monitoring. Consider repeat echo as most recent echo was on 02/2025 and showed an EF of 55- 60% #Hypoglycemia #Metabolic derangements 2/2 to missed HD session #ESRD on HD(HD Sun/Sun/Sun) Patient missed HD today Last HD on Sunday Cr 11.3 and BUN 29 Patient still makes urine Plan: HD as scheduled Avoid nephrotoxic agents Renally dose meds Nephro consulted, appreciate recs #?URI Patient presented with feeling unwell at home with a cough Denied any sick contacts Covid and Flu negative at bedside No WBC elevation Plan: Cocci ordered Procal ordered Will hold off Abx for now in the setting of less likely infectious at this time and likely 2/2 fluid overload Chronic diseases: #IDDM ISS and hypoglycemic protocol ordered Disposition: Patient admitted to telemetry. Diet: cardiac, carb cons GI prophylaxis: not indicated DVT prophylaxis: heparin sc Code: full Case disclosed with Attending Dr. Jacy Fields PGY2 Disclaimer: Even though this this note was dictated by speech recognition and even though it was carefully revised there may still be minor errors in powder coat painter due to voice recognition software. Attending Provider Attestation/Addendum I or my resident physicians have discussed care with the ED physician and I have made the decision to admit. I have discussed and was present for the essential components of the history, physical examination, diagnosis, and treatment plan with the resident. I agree with the patient's care as documented by the resident and amended herein by me. Aric Louie DO. Although this document has been carefully reviewed, there may still be some phonetic and other typographical errors. These errors are purely grammatical due to imperfections in the software program and should not be construed in any way to compromise the substance of the patient's medical care during this visit.
[2025-11-17] MEDS: FUROSEMIDE INJ 10 MG/ML VIAL 2 ML 40 MG IVP (20:27)
[2025-11-17 20:29] LABS: Collection Type, Urine Voided
--- NOTE | 2025-11-17 20:32 | PC.NURSE ---
md velásquez informed pt will be going to dialysis at this time, and okayed for anithypertentions to be held at this time.
[2025-11-17 20:45] LABS: Bilirubin,Urine Negative (Negative); Blood,Urine 1+ (Negative); Clarity,Urine Clear (Clear/Hazy); Color,Urine Yellow (Lt Yel-Yel); Glucose, Urine 2+ (Negative); Ketones,Urine Negative (Negative); Leukocyte Esterase,Urine Negative (Negative); Nitrite,Urine Negative (Negative); PH,Urine 8.0 (5.0-7.0); Protein,Urine 3+ (Neg - Trace); RBC,Urine 6 /hpf (0-3); Specific Gravity,Urine 1.021 (1.001-1.035); Squamous Epithelial Cell,Urine < 1 /hpf (0-5); Urobilinogen,Urine Negative mg/dL (0.0-1.0); WBC,Urine 1 /hpf (0-5)
--- NOTE | 2025-11-17 20:51 | PD.NEPHCONS ---
History of Present Illness Data of Consult Consult date: 11/17/25 Requesting Physician: George Louie DO Primary Care Provider: Aguilar Pabon MD Consult Narrative Reason for consult: ESRd, need for HD History of present illness: Mr. Chase is a 50-year-old [place] gentle male who is well-known to me from my dialysis clinic for the last few years has extensive past medical history of hypertension for more than 20 years, diabetes for more than 20 years, ESRD on HD, PVD with left BKA, dyslipidemia, renal osteodystrophy/secondary hyperparathyroidism, anemia of chronic kidney disease presented to the emergency department with shortness of breath cough which is going on for the last couple of days. Patient missed his dialysis session and in the emergency department was noted to have fluid overload and hypoxia. Nephrology consultation was requested for need for emergency dialysis. Labs and medications have been reviewed. Chest x-ray showed fluid overload Home medications included amlodipine, Basaglar, calcitriol, calcium acetate, losartan. cc:: cc: George Louie DO Review of Systems Review of Systems Narrative Review of Systems: CONSTITUTIONAL: Patient denies any fever, chills. HEENT: Denies any visual disturbances or hearing problems. CARDIOVASCULAR: Patient denies any chest pain, swelling in the lower extremities. PULMONARY: Patient c/o shortness of breath GASTROINTESTINAL: Patient denies any abdominal pain, constipation, nausea, vomiting, diarrhea. GENITOURINARY: Patient denies any urinary symptoms of burning or frequency or hematuria, ++ form in the urine. SKIN: Denies any rash. MUSCULOSKELETAL: Denies any muscular skeletal problems of joint pains. Left BKA NEUROLOGICAL: Denies any neurological problems of strokes, seizures or confusion. Denies any memory problems. PSYCHIATRIC: Denies any depression or anxiety. LYMPHATICS : No lymphadenopathy Past Medical History Past Medical History CARDIAC: Negative Cardiac Disorders or Congestive Heart Failure RESPIRATORY: Negative Chronic Obstructive Pulmonary Disease (COPD) GENITOURINARY: Negative Renal Disease ENDOCRINE: Positive Endocrine Disorders, Diabetes Mellitus Type 2 and Hypothyroidism; Negative Diabetes Mellitus Type 1 Surgical History SURGICAL: Positive Eye Surgery and Amputation Social History SMOKING STATUS: Never smoker SECOND HAND EXPOSURE: Yes Meds Home Medications and Allergies Home Medications ?Medication ?Instructions ?Recorded ?Confirmed ?Type amlodipine 5 mg tablet 5 mg PO QDAY 09/01/20 09/01/20 History insulin glargine 100 unit/mL (3 35 unit subcut QDAY 09/01/20 09/01/20 History mL) subcutaneous pen (Basaglar KwikPen U-100 Insulin) Allergies Allergy/AdvReac Type Severity Reaction Status Date / Time No Known Allergies Allergy Verified 11/17/25 13:16 Exam Vital Signs Temp Pulse Resp BP Pulse Ox O2 Del Method 36.9 C 71 22 H 182/86 H 91 L Room Air 11/17/25 19:56 11/17/25 20:27 11/17/25 20:18 11/17/25 20:27 11/17/25 19:56 11/17/25 19:56 Narrative Exam GENERAL APPEARANCE: Patient seems to be comfortable, adequately hydrated and nourished. Facial puffiness noted. On dialysis HEENT: EOMI, PERRLA NECK: Neck supple, no JVD or bruit CARDIOVASCULAR: Heart regular, no murmurs LUNGS/CHEST: Fine crackles bilaterally with some wheezing ABDOMEN: Soft, nontender, nondistended. No masses. Normal bowel sounds. EXTREMITIES: No edema, clubbing or cyanosis. SKIN: Skin exam normal without any rashes MUSCULOSKELETAL: Left BKA. + Cath PSYCHIATRIC: Normal mood, affect LYMPHATICS: No lymphadenopathy noted NEUROLOGICAL : No neurological deficits Results Labs 11/18/25 02:26 11/18/25 02:26 Labs: Short CBC 11/17/25 Range/Units 14:50 WBC 8.0 (3.8-10.6) Thou/mm3 Hgb 9.8 L (13.5-16.0) g/dL Hct 28.3 L (41.0-53.0) % Plt Count 153 (140-440) Thou/mm3 BMP 11/17/25 14:50 Sodium 141 Potassium 4.0 Chloride 102 Carbon Dioxide 27.8 BUN 29 H Creatinine 11.3 H* Glucose 59 L Calcium 10.4 Cardiac Enzymes 11/17/25 Range/Units 14:50 Troponin I 0.088 H* (0.0-0.045) ng/mL Liver Function 11/17/25 Range/Units 14:50 Total Bilirubin 0.4 (0.3-1.2) mg/dL AST 26 (0-34) U/L ALT 12 (10-49) U/L Alkaline Phosphatase 82 (46-116) U/L Albumin 4.0 (3.5-5.0) gm/dL Urine 12//25 Range/Units 20:15 Urine Color Yellow (Lt Yel-Yel) Urine Clarity Clear (Clear/Hazy) Urine pH 8.0 H (5.0-7.0) Ur Specific [place] 1.021 (1.001-1.035) Urine Protein 3+ A (Neg - Trace) Urine Glucose (UA) 2+ A (Negative) Assessment & Plan Assessment and plan (1) ESRD (end stage renal disease): Status: Acute Assessment and plan: Patient currently seen on dialysis. Tolerating dialysis without any problems. Hemodialysis for 3 hours, 2K, ultrafiltration 2-3 L, Epogen 6000, no heparin ordered. Plan of care discussed with the dialysis nurse. Please see dialysis flowsheet for further details. Patient is dialysis today. Will need extra session tomorrow. (2) Hyperphosphatemia: Status: Acute Assessment and plan: Add binders (3) Anemia in chronic kidney disease (CKD): Status: Acute Assessment and plan: Will give Epogen. Check iron stores (4) DM renal manif type II: Status: Acute Assessment and plan: Diabetes with all the sequelae including diabetic nephropathy, peripheral vascular disease. (5) HTN (hypertension), benign: Status: Acute Assessment and plan: Continue blood pressure medications (6) Hyperlipidemia: Status: Acute Assessment and plan: Add statin (7) Fluid overload: Status: Acute Assessment and plan: On dialysis Additional Assessment & Plan Additional Plan: Thank you Dr. Louie for allowing me to participate in the care of Mr. Chase plan of care discussed with Dr. Louie, team
[2025-11-17] MEDS: DEXTROSE 50%-WATER INJ 50 ML SYRINGE IV (21:43)
--- NOTE | 2025-11-17 21:55 | PD.RESEVENT ---
Documentation for date of: 11/17/25 Event Note Event Note: Rapid Response Room:?309 Time:?2150 Reason for Call:?Hypoglycemia Patient presentation:?Patient was resting comfortably on bed receiving dialysis Events:? From previous pause was called at 215 for a blood glucose of 47. Patient was asymptomatic and following all commands. An amp of D50 was ordered, which raised the blood sugar to 180. Patient continued to remain asymptomatic after administration of D50. Will recheck bedside blood glucose in 1 hour, and if stable, will continue to check every 6 hours. New orders:?D50 amp, bedside glucose check in 1 hour Patient was discussed with the attending, Dr. Jacy Cardoso, PGY-1
[2025-11-17 21:57] LABS: Procalcitonin 0.53 ng/ml (0.0-0.49)
[2025-11-17 22:08] LABS: Troponin I 0.880 ng/mL (0.0-0.045)
[2025-11-17] MEDS: EPOETIN ALFA-EPBX INJ 10,000 UNIT/ML VIAL (ESRD) 10000 UNIT SC (23:42)
[2025-11-18] VITALS (27 sets, daily range): BP systolic 120–188; BP diastolic 63–96; PULSE 61–88; RESP 10–24; TEMP 35.9–37.6; O2SAT 92–100; BMI 30.4
[2025-11-18] MEDS: HEPARIN SOD INJ 1000 UNIT/ML VIAL 10 ML 3800 UNIT INDWELLCAT (00:53)
[2025-11-18] MEDS: HEPARIN SOD INJ 5000 UNIT/ML VIAL SC ×2 (01:12→05:26)
[2025-11-18 02:48] LABS: Basophils # (Auto) 0.0 Thou/mm3 (0.0-0.2); Basophils % (Auto) 0 % (0-2.5); Eosinophils # (Auto) 0.2 Thou/mm3 (0.0-0.5); Eosinophils % (Auto) 3 % (0-10); Hematocrit 31.8 % (41.0-53.0); Hemoglobin 10.6 g/dL (13.5-16.0); Immature Granulocytes Auto 0.03 Thou/mm3 (0.00-0.00); Lymphocytes # (Auto) 0.8 Thou/mm3 (1.0-4.8); Lymphocytes % (Auto) 12 % (10-50); Mean Corpuscular HGB Conc 33.3 g/dl (31.0-37.0); Mean Corpuscular Hemoglobin 26.4 pg (25.0-35.0); Mean Corpuscular Volume 79 fL (80-100); Monocytes # (Auto) 0.9 Thou/mm3 (0.0-0.8); Monocytes % (Auto) 12 % (0-12); Neutrophils # (Auto) 5.1 Thou/mm3 (1.8-7.7); Neutrophils % (Auto) 73 % (37-80); Nucleated Red Blood Cell # 0.00 Thou/mm3 (0.00-0.00); Nucleated Red Blood Cell % 0 /100 WBC (0); Platelet Count 165 Thou/mm3 (140-440); RDW Standard Deviation 46.9 fL (35.1-43.9); Red Blood Count 4.02 Miln/mm3 (4.50-5.90); White Blood Count 7.1 Thou/mm3 (3.8-10.6)
[2025-11-18 03:09] LABS: Alanine Aminotransferase 14 U/L (10-49); Albumin, Serum 4.4 gm/dL (3.5-5.0); Albumin/Globulin Ratio 1.5 (1.2-2.2); Alkaline Phosphatase 85 U/L (46-116); Anion Gap 11 (7-16); Aspartate Amino Transferase 30 U/L (0-34); BUN/Creatinine Ratio 2 Ratio (12-20); Bilirubin,Total 0.7 mg/dL (0.3-1.2); Blood Urea Nitrogen 17 mg/dL (9-23); Calcium 9.8 mg/dL (8.3-10.6); Calcium (Corrected) 9.8 mg/dL (8.5-10.1); Carbon Dioxide 29.6 mMol/L (20.0-31.0); Chloride 100 mMol/L (98-107); Creatinine (Component) 7.1 mg/dL (0.6-1.3); Estimated Creatinine Clearance 12.6 mL/min (>60); Globulin 2.9 gm/dL (2.3-3.5); Glucose 89 mg/dL (74-106); Magnesium 2.2 mg/dL (1.6-2.6); Osmolality,Calculated 281 (275-295); Phosphorous 4.0 mg/dL (2.4-5.1); Potassium 4.1 mMol/L (3.4-5.1); Sodium 141 mMol/L (136-145); Total Protein 7.3 gm/dL (5.7-8.2); eGFR 9 See Note
[2025-11-18 03:12] LABS: Troponin I 0.080 ng/mL (0.0-0.045)
[2025-11-18] MEDS: DEXTROSE 50%-WATER INJ 50 ML SYRINGE IV (07:34)
[2025-11-18 08:03] LABS: Troponin I 0.071 ng/mL (0.0-0.045)
--- NOTE | 2025-11-18 09:48 | ESDS_ITS ---
<Statement entered by Ghassan Durant MD - 11/21/25 12:57> I reviewed above note and agree with findings and plans. I have also personally examined the patient with medicine team and went over assessment and plan with medical team including transportation logistics internship and resident physician. <Statement entered by Layo Jacob MD - 11/18/25 10:50> I discussed with and supervised the transportation logistics internship physician involved in the care of this patient. Patient assessment and plan was discussed with entire medicine team, including my attending. I agree with the assessment and plan as documented by transportation logistics internship doctor. Patient care was discussed with my attending physician Dr. Carleen Jacob, PGY-3 Planned Discharge Date 11/18/25 DS: Providers Provider Date of admission: 11/17/25 19:56 Primary care physician: Aguilar aPbon MD Admitting Provider: George Louie DO Attending Provider on Admission: George Louie DO Consults: 11/17/25 19:17 Consult to Nephrology Stat Comment: Consulting Provider: Juliana Gipson 11/18/25 01:28 [facility] Referral - Knowledge Deficit Routine Comment: Positive screening for knowledge deficit needs. Attending Provider on DC: Ghassan Durant MD Discharging Provider: Albaro Lau DO Anticipated date of discharge: 11/18/25 DS: Diagnosis Problem List Completed Was Problem List Reviewed/Reconciled?: Yes Hospital Course Hospital Course Hospital course: Mr. Chase is a 50-year-old male with past medical history of hypertension, IDDM, HFpEF (55 to 60%), ESRD (HD on Sunday/Sunday/Saturdays) presented to the ED on 11/17/25 with chief complaint of shortness of breath and cough that started around 1 day ago. He stated he missed his dialysis session on Sunday because he had to come to the ED since he wasn't feeling too well. Patient denied having any fevers or chills at home and no sick contacts. Patient stated he is compliant with is home blood pressure medications. In the ED, he was found to have a blood pressure of 185/82. CXR revealed vascular congestion and EKG did not show any acute ST abnormalities. Initial troponin level 0.08, and repeat trop was 0.880. Nephrology was consulted for emergent dialysis in the ED, and patient received dialysis overnight with 3.4L removed. On day of discharge, patient's blood pressure had been stable around 130s/90s. Another dialysis session was planned with goal of 2.5L removed since patient would not likely receive dialysis session tomorrow due to holiday. His troponin level had returned to 0.071 by this morning. At this time, patient is medically and physically stable for discharge for home. All questions and concerns addressed, plan of care discussed with patient, return precautions given. Diagnosis: #HTN Emergency #NSTEMI, likely type II #CHF exacerbation in setting of missed HD #Hx of HFpEF (EF 55 to 60%) #Hypoglycemia #Metabolic derangements 2/2 to missed HD session #ESRD on HD(HD Sun/e/Sat) #IDDM Discharge Plan: * Follow-up with PCP within 1-2 weeks of discharge. * Continue with hemodylisis schedule with your dining room attendant. * Continue taking medications as prescribed below. * You may need repeat ECHOCARDIOGRAM outpatient. Please discuss with your PCP. * Return to Emergency Room if symptoms persist, worsen, or new symptoms develop. Continue to take the rest of your medications as prescribed by your primary care physician. Patient has been explained that should any symptoms recur or worsen patient is instructed to return to the Emergency Department. Case discussed with my senior resident Dr. Jacob Case discussed with my attending Dr. Carleen Lau, PGY 1 Status at Discharge Overall status at discharge: patient is back to baseline Time Spent with Patient Time attestation: Total time spent providing and/or coordinating discharge services: Time spent: Greater than 30 minutes Exam Vital Signs Temp Pulse Resp BP Pulse Ox O2 Del Method FiO2 98.2 F 68 17 135/92 H 100 Room Air 25 11/18/25 08:00 11/18/25 08:31 11/18/25 08:00 11/18/25 08:31 11/18/25 08:00 11/18/25 08:00 11/18/25 06:47 Narrative Exam General: Alert, oriented, in no acute distress. HEENT: Normocephalic, atraumatic. Pupils equal, round, and reactive to light. Extraocular movements intact. No cervical lymphadenopathy. Neck: Supple, no JVD, no lymphadenopathy or thyroid enlargement. Cardiovascular: Regular rate and rhythm. No murmurs, rubs, or gallops. Respiratory: Clear to auscultation bilaterally. No wheezes, rales, or rhonchi. Normal respiratory effort. Abdomen: Soft, nontender, nondistended. Musculoskeletal: Trace RLE edema. Left BKA. Skin: Warm, dry, intact. No rashes or lesions. Discharge Plan Plan Patient Disposition: HOME (Self Care) Care Plan Goals: * Follow-up with PCP within 1-2 weeks of discharge. * Continue with hemodylisis schedule with your dining room attendant. * Continue taking medications as prescribed below. * You may need repeat ECHOCARDIOGRAM outpatient. Please discuss with your PCP. * Return to Emergency Room if symptoms persist, worsen, or new symptoms develop. Prescriptions/Referrals Prescriptions/Med Rec: Continued amlodipine 5 mg Tablet 5 mg PO QDAY Basaglar KwikPen U-100 Insulin 100 unit/mL (3 mL) Insulin Pen 35 unit SUBCUT QDAY albuterol sulfate [Proventil HFA] 90 mcg/actuation HFA aerosol inhaler 1 inh inhalation QID PRN (Reason: shortness of breath or wheezing) Qty: 8.5 0RF losartan 50 mg tablet 50 mg PO QDAY Qty: 30 0RF calcitriol 0.5 mcg capsule 0.5 mcg PO QDAY Qty: 30 0RF calcium acetate 667 mg tablet 667 mg PO TID Qty: 90 0RF Referrals: Aguilar Pabon MD [Primary Care Provider, Family Practice] Patient/Caregiver Discharge Instructions Print Language: Bulgarian Stand Alone Forms: Rolanda Award Info., Patient Portal Info Letter Discharge Order Discharge Orders: Discharge (Routine); Ordered 11/18/25 Ordered By: Venessa Carmona Quality Discharge Quality Measures VTE prophylaxis
--- NOTE | 2025-11-18 10:38 | PC.SS ---
Nathan Chase is a year-old male admitted to [facility] for Rectal Abscess. SS conducted bedside contact with the patient to complete initial assessment and to discuss discharge planning. Role and reason explained. Patient confirmed demographic information. Patient identifies his Jose Enrique Chase [phone] as his surrogate decision maker. Pt states he is able to complete all ADL?s independent. Pt utilizes prosthesis and a cane for ambulation. Pts PCP is Cm at [facility], pt purchase analyst is Dr. Leonela HANNAH at [facility] on [facility]. Pharmacy of choice is [facility]. Discharge options discussed and the pt wishes to return home.? Pt will provide transport. No further intervention required at this time, director social welfare would be available to address any further concerns. DC Plan: Home Contact: Annette Address: Confirmed on face sheet PCP: Cm
[2025-11-18 11:51] LABS: Cocci Serology, IgM Negative (Negative)
--- NOTE | 2025-11-18 13:09 | PD.NEPHPROG ---
Documentation for date of: 11/18/25 Subjective Subjective Interval history: Mr. Chase is a 50-year-old [place] gentle male who is well-known to me from my dialysis clinic for the last few years has extensive past medical history of hypertension for more than 20 years, diabetes for more than 20 years, ESRD on HD, PVD with left BKA, dyslipidemia, renal osteodystrophy/secondary hyperparathyroidism, anemia of chronic kidney disease presented to the emergency department with shortness of breath cough which is going on for the last couple of days. Patient missed his dialysis session and in the emergency department was noted to have fluid overload and hypoxia. Nephrology consultation was requested for need for emergency dialysis. Labs and medications have been reviewed. Chest x-ray showed fluid overload Home medications included amlodipine, Basaglar, calcitriol, calcium acetate, losartan. 11/18/2025 patient currently seen in dialysis. at bedside. Denies any chest pain. + shortness of breath. Labs and medications reviewed. Review of Systems Review of Systems Narrative Review of Systems: CONSTITUTIONAL: Patient denies any fever, chills. HEENT: Denies any visual disturbances or hearing problems. CARDIOVASCULAR: Patient denies any chest pain, swelling in the lower extremities. PULMONARY: Patient c/o shortness of breath GASTROINTESTINAL: Patient denies any abdominal pain, constipation, nausea, vomiting, diarrhea. GENITOURINARY: Patient denies any urinary symptoms of burning or frequency or hematuria, ++ form in the urine. SKIN: Denies any rash. MUSCULOSKELETAL: Denies any muscular skeletal problems of joint pains. Left BKA NEUROLOGICAL: Denies any neurological problems of strokes, seizures or confusion. Denies any memory problems. PSYCHIATRIC: Denies any depression or anxiety. LYMPHATICS : No lymphadenopathy Exam Vital Signs Temp Pulse Resp BP Pulse Ox O2 Del Method FiO2 36.9 C 75 20 142/72 H 97 Room Air 25 11/18/25 16:47 11/18/25 16:47 11/18/25 16:47 11/18/25 16:47 11/18/25 16:47 11/18/25 16:00 11/18/25 06:47 Narrative Exam GENERAL APPEARANCE: Patient seems to be comfortable, adequately hydrated and nourished. Facial puffiness noted. On dialysis HEENT: EOMI, PERRLA NECK: Neck supple, no JVD or bruit CARDIOVASCULAR: Heart regular, no murmurs LUNGS/CHEST: Fine crackles bilaterally with some wheezing ABDOMEN: Soft, nontender, nondistended. No masses. Normal bowel sounds. EXTREMITIES: No edema, clubbing or cyanosis. SKIN: Skin exam normal without any rashes MUSCULOSKELETAL: Left BKA. + Cath PSYCHIATRIC: Normal mood, affect LYMPHATICS: No lymphadenopathy noted NEUROLOGICAL : No neurological deficits Objective Labs 11/18/25 02:26 11/18/25 02:26 Labs: Laboratory Results - last 24 hr 11/17/25 11/18/25 11/18/25 20:55 02:26 07:15 WBC 7.1 RBC 4.02 L Hgb 10.6 L Hct 31.8 L MCV 79 L MCH 26.4 MCHC 33.3 RDW Std Deviation 46.9 H Plt Count 165 Neut % (Auto) 73 Lymph % (Auto) 12 [place] % (Auto) 12 Eos % (Auto) 3 Baso % (Auto) 0 Neut # (Auto) 5.1 Lymph # (Auto) 0.8 L [place] # (Auto) 0.9 H Eos # (Auto) 0.2 Baso # (Auto) 0.0 Immature Gran # (Auto) 0.03 H Absolute Nucleated RBC 0.00 Immature Gran % 0 Nucleated RBC % 0 Sodium 141 Potassium 4.1 Chloride 100 Carbon Dioxide 29.6 Anion Gap 11 BUN 17 Creatinine 7.1 H* D Estim Creat Clear Calc 12.6 L eGFR 9 L* BUN/Creatinine Ratio 2 L Glucose 89 D Calculated Osmolality 281 Calcium 9.8 Corrected Calcium 9.8 Phosphorus 4.0 Magnesium 2.2 Total Bilirubin 0.7 AST 30 ALT 14 Alkaline Phosphatase 85 Troponin I 0.880 H* D 0.080 H* D 0.071 H* Total Protein 7.3 Albumin 4.4 Globulin 2.9 Albumin/Globulin Ratio 1.5 Procalcitonin 0.53 H Coccidioides IgM Ab Negative Assessment & Plan Assessment and plan (1) ESRD (end stage renal disease): Status: Acute Assessment and plan: Patient currently seen on dialysis. Tolerating dialysis without any problems. Hemodialysis for 3 hours, 2K, ultrafiltration 2-3 L, Epogen 6000, no heparin ordered. Plan of care discussed with the dialysis nurse. Please see dialysis flowsheet for further details. Patient is dialysis today. Will need extra session tomorrow. (2) Hyperphosphatemia: Status: Acute Assessment and plan: Add binders (3) Anemia in chronic kidney disease (CKD): Status: Acute Assessment and plan: Will give Epogen. Check iron stores (4) DM renal manif type II: Status: Acute Assessment and plan: Diabetes with all the sequelae including diabetic nephropathy, peripheral vascular disease. (5) HTN (hypertension), benign: Status: Acute Assessment and plan: Continue blood pressure medications (6) Hyperlipidemia: Status: Acute Assessment and plan: Add statin (7) Fluid overload: Status: Acute Assessment and plan: On dialysis Additional Assessment & Plan Additional Plan: Thank you Dr. Louie for allowing me to participate in the care of Mr. Chase plan of care discussed with Dr. Louie, team
[2025-11-19 12:43] LABS: Cocci Serology, IgG Negative (Negative)
== END 2025-11-18 18:02 | disposition home or self-care (01) | DRG 425 ==
LOC: SERX 19:17 → SERHOLD 20:15 → S2NX 11-18 01:08
PROVIDERS: Nurse Practitioner Family; Admitting Provider Student in an Organized Health Care Education/Training Program; Emergency Provider Emergency Medicine; PCP Family Medicine; Visit Provider Student in an Organized Health Care Education/Training Program
DX: E87.70 Fluid overload, unspecified (principal); I16.1 Hypertensive emergency; I21.A1 Myocardial infarction type 2; I50.32 Chronic diastolic (congestive) heart failure; I13.2 Hypertensive heart and chronic kidney disease with heart failure and with stage 5 chronic kidney disease, or end stage renal disease; N18.6 End stage renal disease; E11.51 Type 2 diabetes mellitus with diabetic peripheral angiopathy without gangrene; D63.1 Anemia in chronic kidney disease; E11.22 Type 2 diabetes mellitus with diabetic chronic kidney disease; E11.649 Type 2 diabetes mellitus with hypoglycemia without coma; E78.5 Hyperlipidemia, unspecified; R09.02 Hypoxemia; E83.39 Other disorders of phosphorus metabolism; N25.0 Renal osteodystrophy; N25.81 Secondary hyperparathyroidism of renal origin; Z79.4 Long term (current) use of insulin; Z89.512 Acquired absence of left leg below knee; Z99.2 Dependence on renal dialysis
CPT/HCPCS: 36415; 51702; 71045; 80053; 81001; 83735; 83880; 84100; 84145; 84484; 85025; 86331; 86635; 87081; 87502; 87635; 93005; 94640; 94660; 99284; A4314; A9270; J1643; J1644; J1920; J1938; Q5105